=== PATIENT | male | born 1970 | race Caucasian/White ===

== ENCOUNTER → 2017-10-02 10:56 | Outpatient (REF) | payer BC, SELFPAY ==
[2017-10-02 13:50] LABS: Basophils # 0.1 K/mm3 (0-0.2); Basophils % 0.9 % (0.1-2.0); Eosinophils # 0.2 K/mm3 (0.0-0.4); Eosinophils % 2.3 % (0.1-12.0); Hematocrit 53.4 % (42.0-52.0); Hemoglobin 17.3 g/dL (14.1-18.0); Lymphocytes # 3.5 K/mm3 (0.7-4.5); Lymphocytes % 54.5 K/mm3 (10-50); Mean Corpuscular HGB Conc 32.3 g/dL (31.8-35.4); Mean Corpuscular Hemoglobin 29.8 pg (27.0-31.2); Mean Corpuscular Volume 92.3 fl (80-94); Mean Platelet Volume 7.3 fl (7.4-10.4); Monocytes # 0.4 K/mm3 (0.1-1.0); Monocytes % 6.9 % (1.7-9.3); Neutrophils # 2.3 K/mm3 (1.8-7.8); Neutrophils % 35.3 % (37.0-80.0); Platelet Count 252 K/mm3 (142-424); Red Blood Count 5.79 M/mm3 (4.60-6.20); Red Cell Distribution Width 12.4 % (11.5-17.5); White Blood Count 6.4 K/mm3 (4.8-10.8)
[2017-10-02 13:59] LABS: MANUAL DIFFERENTIAL MANUAL DIFFERENTIAL (MANUAL DIFF)
[2017-10-02 16:34] LABS: Alanine Aminotransferase 40 U/L (12-78); Albumin Level 4.3 gm/dL (3.4-5.0); Albumin/Globulin Ratio 1.5 (1.1-1.8); Alkaline Phosphatase 82 U/L (46-116); Anion Gap 13.1 mEq/L (5-15); Aspartate Amino Transferase 23 U/L (15-37); Bilirubin,Total 0.6 mg/dL (0.2-1.0); Blood Urea Nitrogen 12 mg/dL (7-18); Calcium 9.3 mg/dL (8.5-10.1); Carbon Dioxide 28 mmol/L (21.0-32.0); Chloride 105 mmol/L (98-107); Chol/HDL Ratio 3.7 (1-3.5); Cholesterol 173 mg/dL (140-200); Creatinine,Serum 0.99 mg/dL (0.70-1.30); Estimated Glomerular Filt Rate 82 ml/min (>60); GFR (African American) 99 ML/MIN (>60); Globulin 2.9 gm/dl (1.3-3.2); Glucose 113 mg/dL (74-106); HDL Cholesterol 47 mg/dL (27-67); LDL Cholesterol 108 mg/dL (0-130); Potassium 5.1 mmoL/L (3.5-5.1); Sodium 141 mmol/L (136-145); T4 (Thyroxine) 8.4 ug/dl (4.7-13.3); Thyroid Stimulating Hormone 1.62 uIU/ml (0.358-3.740); Total Protein,Serum 7.2 gm/dL (6.4-8.2); Triglycerides 92 mg/dL (30-200); VLDL Cholesterol 18 mg/dL (0-40)
[2017-10-02 19:09] LABS: Eosinophils % 3 % (0-3); Lymphocytes % 54 % (10-50); Monocytes % 10 % (2-9); Neutrophils % 32 % (42-76); Platelet Estimate Normal; RBC Morphology Normal; Total Cells Counted 100
[2017-10-04 06:18] LABS: HIV Screen 4th Generation wRfx Non Reactive (Non Reactive); Vitamin D 25 Hydroxy 23.3 ng/mL (30.0-100.0)
== END ==
LOC: LAB 10:56
PROVIDERS: Visit Provider Physician Assistant
DX: I10 Essential (primary) hypertension (principal); E78.5 Hyperlipidemia, unspecified; F32.1 Major depressive disorder, single episode, moderate
CPT/HCPCS: 80053; 80061; 82652; 84436; 84443; 85007; 85025; 86703; G0432

== ENCOUNTER → 2017-11-20 09:06 | Outpatient (CLI) | payer BC, SELFPAY ==
--- NOTE | 2017-11-20 09:08 | XR_ITS ---
XR foot wt bearing RT 3V HISTORY: ITS.REASON: pain ORDERING PHYSICIAN: Tiny Thomas DPM PATIENT AGE: 47 years COMPARISON: FINDINGS: No fracture or dislocation. There is normal alignment. There is a small cortical defect along the dorsal distal aspect of the first metatarsal with some associated soft tissue swelling minimal soft tissue indication. Gout is a consideration. Please correlate clinically. No other significant anomalies are evident. IMPRESSION: 1. Possible gout. Please correlate with clinical parameters 2. Otherwise negative
--- NOTE | 2017-11-20 09:08 | XR_ITS ---
XR foot wt bearing LT 3V HISTORY: ITS.REASON: pain ORDERING PHYSICIAN: Tiny Thomas DPM PATIENT AGE: 47 years COMPARISON: None FINDINGS: No fracture or dislocation. No lytic or blastic change. There is normal mineralization.. The joint spaces are well-preserved. No significant degenerative/arthritic changes. No erosive changes evident. A faint calcific density is present along the dorsal aspect of the interphalangeal joint of the great toe nonspecific IMPRESSION: Negative, no acute finding
== END ==
PROVIDERS: Visit Provider Podiatrist
DX: M79.671 Pain in right foot (principal); M79.672 Pain in left foot
CPT/HCPCS: 73630

== ENCOUNTER → 2017-12-11 08:19 | Outpatient (CLI) | payer BC, SELFPAY ==
--- NOTE | 2017-12-11 08:19 | MR_ITS ---
MR foot RT wo/w con Ordering Physician: Tiny Bliss DPM Patient Age: 47 years: Male HISTORY: ITS.REASON:. Focal Swelling cyst foot pain and neuropathy Patient states ganglion cyst lateral side great toe right foot. Marker placed over this area. Reason HPI Comments - Dr bliss 47 y/o male who presents for initial evaluation of right foot pain. Patient has had 2 previous surgeries on the right foot, both for cyst removal . First surgery was by Dr. Nadeem Rao 04/2014 and then Pelon Rao 03/02/15. The 2nd surgery was for a medial dorsal cutaneous nerve release and soft tissue mass excision. Soft tissue mass with a ganglion cyst clinically. Patient states that a few months ago he started having drainage from the right medial great toe. He describes the drainage as clear jelly . Patient complains of numbness at rest. When he is weightbearing he states that the big toe throbs, tingles and camara. The burning pain is localized to the big toe joint but does radiate up the inside of the foot to the haynes the ankle. Patient took Gabapentin in the past, but it did not make any difference. He denies any treatment since surgery with Dr. Pelon Rao. 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 Multiplanar multisequence MR imaging 1.5 Wilma MR . Pre-& postcontrast imaging Postcontrast T1 images performed following 20 mL ProHance COMPARISON :Plain films of foot 7 02/17 and 05/15/2014 FINDINGS ... Skin marker is placed over the palpable area at the medial dorsal aspect first MTP joint,/ base of great toe Just beneath this marker there is a tiny 4 mm x 5 mm length focal fluid-filled likely cystic area on fluid weighted images... With Suggestion of perhaps scant, very minor enhancement of soft tissues overlying & surrounding this small fluid collection. For example axial postcontrast image 13, demonstrates what appears to be very subtle enhancing minimal focal bulging soft tissues in this region, surrounding this tiny cyst. Overall area measures ~1 cm at its base. Clinical correlation required. This feature appears well from the joint.. This is minor focal soft tissue prominence is nicely seen seen the sagittal slice 26 images ... Mild Arthritic Changes First MTP joint: Under also some minor subchondral cystic changes seen at the head of first metatarsal, axial slice 16 sagittal 22. These of the compatible some mild degenerative changes at the first MTP joint. Mild sharp. The margin of the joint may also reflects a. Continuing distally at the great toe there is some upper normal fluid dorsal to head and neck of proximal phalanx. Overlying the bony & just beneath the extensor tendon Upper normal precontrast signal in the soft tissues beneath/ lateral to the adductor hallucis tendon,... & medial to the first metatarsal. There is no enhancement here number thus this most likely reflects venous structures.. Considered Possibility of a small Elongated developing ganglia here in the this tendon, briefly entertain on coronal STIR image, but less likely. Clinical correlation required here as well. Other metatarsals appear intact. . The second toe there is upper normal fluid just inferior to the head of the proximal phalanx.. Upper normal distance between the first and second toe however first and second metatarsals with normal relationships -------IMPRESSION: 1. small Subtle Focal Soft Tissue Prominence-overlying the medial dorsal aspect first MTP. This correlates with the palpable area just beneath the skin marker . This appears to involve the superficial soft tissues along with a small 4 x 5 mm
--- NOTE | 2017-12-11 10:19 | HMH.ITSHM ---
LISINOPRIL METOPROL 10MG LIPTIOR 20MG CELEXA 20mg LAMICTAL 100mg MELOXICAN 7.5 ASPIRIN 81MG
== END ==
PROVIDERS: Family Provider Physician Assistant; PCP Physician Assistant; Visit Provider Podiatrist
DX: M67.471 Ganglion, right ankle and foot (principal)
CPT/HCPCS: 73720; A9576

== ENCOUNTER → 2018-05-07 16:21 | Outpatient (CLI) | payer BC, SELFPAY ==
[2018-05-07 16:41] LABS: Basophils # 0.1 K/mm3 (0-0.2); Basophils % 1.2 % (0.1-2.0); Eosinophils # 0.2 K/mm3 (0.0-0.4); Eosinophils % 2.6 % (0.1-12.0); Hematocrit 50.5 % (42.0-52.0); Hemoglobin 15.7 g/dL (14.1-18.0); Lymphocytes # 2.7 K/mm3 (0.7-4.5); Lymphocytes % 45.1 % (10-50); Mean Corpuscular Hemoglobin 28.3 pg (27.0-31.2); Mean Corpuscular Volume 91.3 fl (80-94); Mean Platelet Volume 7.6 fl (7.4-10.4); Monocytes # 0.6 K/mm3 (0.1-1.0); Monocytes % 10.1 % (1.7-9.3); Neutrophils # 2.4 K/mm3 (1.8-7.8); Platelet Count 260 K/mm3 (142-424); Red Blood Count 5.52 M/mm3 (4.60-6.20); Red Cell Distribution Width 13.7 % (11.5-17.5); White Blood Count 5.9 K/mm3 (4.8-10.8)
[2018-05-07 17:32] LABS: Hemoglobin A1C 5.7 % (0.0-7.0)
[2018-05-07 20:12] LABS: Alanine Aminotransferase 44 U/L (12-78); Albumin Level 3.9 gm/dL (3.4-5.0); Albumin/Globulin Ratio 1.2 (1.1-1.8); Alkaline Phosphatase 90 U/L (46-116); Anion Gap 17.8 mEq/L (5-15); Aspartate Amino Transferase 21 U/L (15-37); Bilirubin,Total 0.6 mg/dL (0.2-1.0); Blood Urea Nitrogen 8 mg/dL (7-18); Calcium 8.8 mg/dL (8.5-10.1); Carbon Dioxide 24 mmol/L (21.0-32.0); Chloride 103 mmol/L (98-107); Chol/HDL Ratio 3.6 (1-3.5); Cholesterol 182 mg/dL (140-200); Estimated Glomerular Filt Rate 91 ml/min (>60); GFR (African American) 110 ML/MIN (>60); Globulin 3.2 gm/dl (1.3-3.2); Glucose 101 mg/dL (74-106); HDL Cholesterol 50 mg/dL (27-67); LDL Cholesterol 116 mg/dL (0-130); Potassium 4.8 mmoL/L (3.5-5.1); Sodium 140 mmol/L (136-145); T4 (Thyroxine) 10.3 ug/dl (4.7-13.3); Thyroid Stimulating Hormone 0.97 uIU/ml (0.358-3.740); Total Protein,Serum 7.1 gm/dL (6.4-8.2); Triglycerides 79 mg/dL (30-200); VLDL Cholesterol 16 mg/dL (0-40)
[2018-05-09 12:20] LABS: Hep A Ab, IgM Negative (Negative); Hepatitis B Core Antibody IgM Negative (Negative); Hepatitis B Surface Antigen Negative (Negative)
[2018-05-09 14:20] LABS: Vitamin B12 772 pg/mL (232-1245); Vitamin D 25 Hydroxy 23.9 ng/mL (30.0-100.0)
[2018-05-09 14:21] LABS: Folate 5.4 ng/mL (>3.0); HIV Screen 4th Generation wRfx Non Reactive (Non Reactive); Hepatitis C Antibody 0.1 s/co ratio (0.0-0.9)
== END ==
PROVIDERS: Visit Provider Physician Assistant
DX: G62.9 Polyneuropathy, unspecified (principal); I10 Essential (primary) hypertension; Z20.2 Contact with and (suspected) exposure to infections with a predominantly sexual mode of transmission
CPT/HCPCS: 80053; 80061; 80074; 82607; 82652; 82746; 83036; 84436; 84443; 85025; 86703; G0432

== ENCOUNTER → 2018-11-28 13:23 | Outpatient (CLI) | payer BC, SELFPAY ==
[2018-11-28 13:59] LABS: Basophils # 0.1 K/mm3 (0-0.2); Basophils % 1.1 % (0.1-2.0); Eosinophils # 0.1 K/mm3 (0.0-0.4); Eosinophils % 2.4 % (0.1-12.0); Hematocrit 53.9 % (42.0-52.0); Hemoglobin 16.8 g/dL (14.1-18.0); Lymphocytes # 2.9 K/mm3 (0.7-4.5); Lymphocytes % 48.3 % (10-50); Mean Corpuscular HGB Conc 31.2 g/dL (31.8-35.4); Mean Corpuscular Hemoglobin 28.6 pg (27.0-31.2); Mean Corpuscular Volume 91.6 fl (80-94); Mean Platelet Volume 7.8 fl (7.4-10.4); Monocytes # 0.6 K/mm3 (0.1-1.0); Monocytes % 9.9 % (1.7-9.3); Neutrophils # 2.3 K/mm3 (1.8-7.8); Neutrophils % 38.2 % (37.0-80.0); Platelet Count 282 K/mm3 (142-424); Red Blood Count 5.88 M/mm3 (4.60-6.20); Red Cell Distribution Width 13.3 % (11.5-17.5); White Blood Count 6.1 K/mm3 (4.8-10.8)
[2018-11-28 14:46] LABS: Alanine Aminotransferase 50 U/L (12-78); Albumin Level 3.8 gm/dL (3.4-5.0); Albumin/Globulin Ratio 1.2 (1.1-1.8); Alkaline Phosphatase 88 U/L (46-116); Anion Gap 18.6 mEq/L (5-15); Aspartate Amino Transferase 24 U/L (15-37); Bilirubin,Total 0.6 mg/dL (0.2-1.0); Blood Urea Nitrogen 12 mg/dL (7-18); Calcium 8.7 mg/dL (8.5-10.1); Carbon Dioxide 23 mmol/L (21.0-32.0); Chloride 102 mmol/L (98-107); Chol/HDL Ratio 4.1 (1-3.5); Cholesterol 154 mg/dL (140-200); Estimated Glomerular Filt Rate 91 ml/min (>60); GFR (African American) 110 ML/MIN (>60); Globulin 3.1 gm/dl (1.3-3.2); Glucose 101 mg/dL (74-106); HDL Cholesterol 38 mg/dL (27-67); LDL Cholesterol 96 mg/dL (0-130); Potassium 4.6 mmoL/L (3.5-5.1); Sodium 139 mmol/L (136-145); Thyroid Stimulating Hormone 1.41 uIU/ml (0.358-3.740); Total Protein,Serum 6.9 gm/dL (6.4-8.2); Triglycerides 99 mg/dL (30-200); VLDL Cholesterol 20 mg/dL (0-40)
[2018-11-29 10:13] LABS: Hep A Ab, IgM Negative (Negative); Hepatitis B Core Antibody IgM Negative (Negative); Hepatitis B Surface Antigen Negative (Negative)
[2018-11-29 19:16] LABS: HIV Screen 4th Generation wRfx Non Reactive (Non Reactive); Hepatitis C Antibody <0.1 s/co ratio (0.0-0.9); PSA, Free 0.33 ng/mL; Prostate Specific Ag 0.9 ng/mL (0.0-4.0); Vitamin D 25 Hydroxy 25.8 ng/mL (30.0-100.0)
== END ==
PROVIDERS: Visit Provider Physician Assistant
DX: E78.5 Hyperlipidemia, unspecified (principal); I10 Essential (primary) hypertension; Z11.59 Encounter for screening for other viral diseases
CPT/HCPCS: 80053; 80061; 80074; 82652; 84153; 84154; 84436; 84443; 85025; 86703; G0432

== ENCOUNTER → 2020-06-24 10:50 | Outpatient (CLI) | payer BC, SELFPAY ==
[2020-06-25 10:14] LABS: Covid-19 Nasal PCR Sendout P&C Negative
== END ==
PROVIDERS: PCP Emergency Medicine; Visit Provider Physician Assistant
DX: Z20.822 Contact with and (suspected) exposure to COVID-19 (principal)
CPT/HCPCS: U0004

== ENCOUNTER → 2020-08-12 13:56 | Outpatient (CLI) | payer BC, SELFPAY ==
[2020-08-12 14:25] LABS: Basophils # 0.1 K/mm3 (0-0.2); Eosinophils # 0.3 K/mm3 (0.0-0.4); Eosinophils % 3.5 % (0.1-12.0); Hematocrit 51.5 % (42.0-52.0); Hemoglobin 16.8 g/dL (14.1-18.0); Lymphocytes # 3.8 K/mm3 (0.7-4.5); Mean Corpuscular HGB Conc 32.6 g/dL (31.8-35.4); Mean Corpuscular Hemoglobin 29.3 pg (27.0-31.2); Mean Corpuscular Volume 89.7 fl (80-94); Mean Platelet Volume 8.5 fl (7.4-10.4); Monocytes # 0.6 K/mm3 (0.1-1.0); Monocytes % 8.2 % (1.7-9.3); Neutrophils # 2.7 K/mm3 (1.8-7.8); Neutrophils % 36.4 % (37.0-80.0); Platelet Count 266 K/mm3 (142-424); Red Blood Count 5.74 M/mm3 (4.60-6.20); Red Cell Distribution Width 13.5 % (11.5-17.5); White Blood Count 7.4 K/mm3 (4.8-10.8)
[2020-08-12 14:28] LABS: MANUAL DIFFERENTIAL MANUAL DIFFERENTIAL (MANUAL DIFF)
[2020-08-12 14:35] LABS: Alanine Aminotransferase 31 U/L (12-78); Albumin Level 4.3 g/dl (3.5-5.0); Albumin/Globulin Ratio 1.4 (1.1-1.8); Alkaline Phosphatase 84 U/L (38-126); Anion Gap 13.6 mEq/L (5-15); Aspartate Amino Transferase 33 U/L (17-59); Bilirubin,Total 0.6 mg/dl (0.2-1.3); Blood Urea Nitrogen 12 mg/dl (9-20); Calcium 9.4 mg/dl (8.4-10.2); Carbon Dioxide 23 mmol/L (22.0-30.0); Chloride 107 mmol/L (98-107); Chol/HDL Ratio 4.7 (1-3.5); Cholesterol 175 mg/dl (140-200); Estimated Glomerular Filt Rate 104 ml/min (>60); GFR (African American) 125 ML/MIN (>60); Glucose 105 mg/dl (74-100); HDL Cholesterol 37 mg/dl (40-60); Potassium 4.6 mmoL/L (3.5-5.1); Sodium 139 mmol/L (136-145); Total Protein,Serum 7.3 g/dl (6.3-8.2); Triglycerides 122 mg/dl (30-150); VLDL Cholesterol 24 mg/dL (0-40)
[2020-08-12 14:47] LABS: Direct LDL Cholesterol 101.87 mg/dL (100-129)
[2020-08-12 14:51] LABS: Free T4 (Free Thyroxine) 1.01 ng/dl (0.78-2.19)
[2020-08-12 15:06] LABS: Thyroid Stimulating Hormone 1.62 uIU/mL (0.465-4.68)
[2020-08-12 15:51] LABS: Hemoglobin A1C 6.4 % (4.0-6.0)
[2020-08-12 17:23] LABS: Eosinophils % 6 % (0-3); Lymphocytes % 35 % (10-50); Monocytes % 3 % (2-9); Neutrophils % 37 % (42-76); Platelet Estimate Normal; RBC Morphology Normal; Total Cells Counted 100
[2020-08-14 10:36] LABS: Hep A Ab, IgM Negative (Negative); Hepatitis B Core Antibody IgM Negative (Negative); Hepatitis B Surface Antigen Negative (Negative)
[2020-08-14 10:43] LABS: HIV Screen 4th Generation wRfx Non Reactive (Non Reactive); Hepatitis C Antibody <0.1 s/co ratio (0.0-0.9)
[2020-08-14 15:31] LABS: Rapid Plasma Reagin Ab Titer Non Reactive (NonRea<1:1)
[2020-08-15 08:50] LABS: HSV 2 IgG Supplemental Testing Positive (Negative); HSV 2 IgG, Type Spec 3.37 index (0.00-0.90); Neisseria gonorrhoeae, NAA Negative (Negative)
== END ==
PROVIDERS: Visit Provider Physician Assistant
DX: Z00.00 Encounter for general adult medical examination without abnormal findings (principal); E78.5 Hyperlipidemia, unspecified; E55.9 Vitamin D deficiency, unspecified; Z20.2 Contact with and (suspected) exposure to infections with a predominantly sexual mode of transmission; R06.02 Shortness of breath; I10 Essential (primary) hypertension; Z79.899 Other long term (current) drug therapy; Z11.4 Encounter for screening for human immunodeficiency virus [HIV]
CPT/HCPCS: 80053; 80061; 80074; 83036; 84439; 84443; 85007; 85025; 86592; 86695; 86703; 86790; 87491; 87591; G0432

== ENCOUNTER → 2020-10-09 06:36 | Outpatient (CLI) | payer BC, SELFPAY ==
--- NOTE | 2020-10-09 | CA_ITS ---
APPROVED REPORT Exam: Exercise Treadmill Technologist: sophie miles, Ht: 5 ft 9 in Wt: 250 lbs BSA: 2.27 m2 HR: 65 bpm BP: 113/58 mmHg Indications: CP, SOB Medical History Medical History: CAD s/p CABG Medications: Amlodipine,,,,, Lisinopril,,,,, Metoprolol,,,,, Asa,,,,, Albuterol,,,,, DulOXETINE,,,,, Vitamin D,,,,, Flovent,,,,, ValACYCLOVIR,,,,, LipTOR,,,,, MeLOICAM,,,,, MeLOICAM,,,,, Allergies: oxycodone Cardiac Risk Factors: HTN, Hyperlipidemia, FHX of CAD Stress Test Details Test: Brayan HR Resting HR: 74 bpm Max Heart Rate (APMHR): [id number] bpm Max HR Achieved: 133 bpm Target HR (85% APMHR): 146.360915 bpm % of APMHR: 77.33 Recovery HR: 96 bpm BP Resting BP: 113.0/58.0 mmHg Max BP: 170.0/86.0 mmHg Recovery BP: 154.0/84.0 mmHg ECG Resting ECG: NSR Clinical Reason for Termination: Chest pain, Dyspnea Exercise duration: 06:30 min Highest Stage Achieved: Stage 2: 2.5 mph at 12% grade. Exercise capacity: 7.0 METs Stress ECG Conclusion Patient had mild chest along with SOA and wheezing. One PVC. Less than 1.5mm ST Segment changes. Non-diagnostic- Did not achieve target HR. Positive symptoms. Test Summary REST . . . . . . . Standing REST . . . . . . . Sitting REST 10:29 0.0 1.2 74 . 113/ 58 . . Stage 1 01:00 10.0 1.7 98 . . . . Stage 1 02:00 10.0 1.7 106 . . . . Stage 1 03:00 10.0 1.7 115 . 150/ 82 . . Stage 2 01:00 12.0 2.5 118 . . . . Stage 2 02:00 12.0 2.5 127 . . . . Stage 2 . . . . . . . Stage held Stage 2 03:00 12.0 2.5 131 . . . . Stage 2 . . . . . . . Stage resumed Stage 2 03:30 12.0 2.5 132 . 170/ 86 . Stop exercise at 06:30 RECOVERY 01:00 0.0 0.0 118 . . . . RECOVERY 02:00 0.0 0.0 105 . . . . RECOVERY 03:00 0.0 0.0 100 . . . . RECOVERY 04:00 0.0 0.0 96 . 158/ 84 . . RECOVERY 05:00 0.0 0.0 90 . 158/ 84 . . RECOVERY 06:00 0.0 0.0 96 . 142/ 80 . . RECOVERY 06:34 0.0 0.0 90 . 142/ 80 . . Electronically signed by : Lit Rutledge, 10/09/2020 13:37:46
--- NOTE | 2020-10-09 07:28 | NM_ITS ---
APPROVED REPORT Exam: Nuclear Stress Test Indication: chest pain..short of breath..palpitations..fatigue Patient Location: Outpatient Stress Tech: Adelina James DC Tech:Marina Roy ARRT RT(R)(N) Ht: 5 ft 9 in Wt: 250 lbs HR: 65 bpm BP: 113/58 mmHg BSA: 2.27 m2 BMI: 36.9 History: chest pain..short of breath..palpitations..fatigue Procedure: Patient exercised on Brayan protocol 6.30 minutes and sec, resting heart rate 65 bpm, resting blood pressure 113/58 mmHg, with exercise maximum heart rate achived was 133 bpm which is less than 85% of the maximum corrected heart rate. bpm which is 91 % of the maximum predicted heart rate and blood pressure was 170/86 mmHg. Test was stopped due to Chest pain and shortness of breath. Patient has Adequate exercise capacity, achieved 7.0 METs of workload on treadmill, the blood pressure response to exercise was Adequate. Electrocardiogram Resting electrocardiogram showed sinus rhythm, with exercise there is less than 1.[address] segment depression noted from the baseline EKG. Cardiac Stress and Resting SPECT Images: Cardiac Stress and Resting SPECT images were obtained using technetium 99m Myoview 30.1 mCi stress and 9.86 mCi at rest. Gated SPECT for analysis of segmental wall motion and calculation of the ejection fraction also done. Prone images were also obtained. Cardiac stress and resting SPECT images show uniform myocardial activity without segmental perfusion abnormality, computer derived ejection fraction is 49% with no regional wall motion abnormality, right ventricle is normal size and contractility. Conclusion: 1. The EKG portion of the exercise Myoview is nondiagnostic as patient did not achieve the target heart rate, patient has adequate exercise capacity achieved 7 mets of workload on treadmill, the blood pressure response to exercise was adequate, patient complained of shortness of breath and chest discomfort with exercise relieved with rest. 2. No scintigraphic evidence of reversible ischemia seen, computer derived ejection fraction 49% with no regional wall motion abnormality, right ventricle is normal size and contractility. Electronically signed by : Lit Rutledge, 10/09/2020 13:45:47
--- NOTE | 2020-10-09 07:31 | CA_ITS ---
APPROVED REPORT EXAM: Comprehensive 2D, Doppler, and color-flow Echocardiogram Rn Assessment: Ashley Hernandez CRT Ht: 5 ft 9 in Wt: 260lbs BSA: 2.31 BP: 142/73 mmHg Indications: Chest Pain, CAD, CABG, SOB, 2D Dimensions LVOT 1.81 cm (M/F) 1.5-2.5 LA Volume 81.00 mL LA Volume Index 35.10 mL/m2 (M/F) 16-34 M-Mode Dimensions RVDd 2.98 cm (0.9-2.6) LA Diam 4.14 cm (1.9-4.0) LVDd 4.71 cm (3.5-5.7) Ao Diam 3.13 cm (2.0-3.7) LVDs 3.34 cm (3.5-5.7) IVSd 1.45 cm (0.6-1.1) PWd 0.60 cm (0.6-1.1) EF (Teich) 55.90% FS 29.10% EDV (Teich) 102.90 mL TAPSE 1.51 (<1.7) ESV (Teich) 45.40 mL LV Diastology E Decel Time 250.00 (160-240 msec) E/A Ratio 1.24 MED E' 7.00 (< 7 cm/sec) MED A' 11.50 cm/s E'/MED E' Ratio 15.29 (>14) LAT E' 8.50 (<10 cm/sec) LAT A' 6.50 cm/s E/LAT E' Ratio 12.59 (>14) Aortic Valve AO Peak GR. 10.20 mmHg Mitral Valve MV A Velocity 86.00 (40-130 cm/s) E/A Ratio 1.24 MV Decel. Time 250.00 (160-240 ms) Pulmonary Valve PV Peak Velocity 91.00 (50-150 cm/s) Tricuspid Valve TR P. Velocity 271.00 cm/s Left Ventricle Left atrium is mildly enlarged, left ventricle is normal size, there is no concentric left ventricular hypertrophy, visually estimated ejection fraction 50% with no regional wall motion abnormality, diastolic parameters are inconclusive. Right Ventricle Right atrium and right ventricle are mildly enlarged with normal contractility. Aortic Valve Aortic valve is minimally thickened and fibrosed, there is no aortic stenosis or aortic insufficiency. Mitral Valve Mitral valve is grossly normal, there is trace mitral regurgitation. Tricuspid Valve Tricuspid grossly normal, there is trace tricuspid regurgitation, tricuspid regurgitation jet velocity is inadequate for calculation of the right ventricular systolic pressure. Pulmonic Valve Pulmonic valve is poorly visualized. Great Vessels Aortic root is normal size. Pericardium No significant pericardial effusion noted. Conclusion 1. Mild biatrial enlargement, normal left ventricular size, visually estimated ejection fraction 50% with no regional wall motion abnormality, diastolic parameters are inconclusive. 2. Mildly enlarged right ventricle with normal contractility. 3. Trace mitral and tricuspid regurgitation. 4. No significant pericardial effusion noted. Electronically signed by : Lit Rutledge, 10/09/2020 14:06:37
--- NOTE | 2020-10-09 11:11 | HMH.ITSHM ---
Current Home Medications as stated by this patient Carloz Tong or regional sales representative. [] metoprolol lisinopril amlodipine
== END ==
PROVIDERS: PCP Emergency Medicine; Visit Provider Internal Medicine Cardiovascular Disease
DX: R07.89 Other chest pain (principal); R06.00 Dyspnea, unspecified; I25.708 Atherosclerosis of coronary artery bypass graft(s), unspecified, with other forms of angina pectoris; E78.5 Hyperlipidemia, unspecified; I10 Essential (primary) hypertension; Z95.1 Presence of aortocoronary bypass graft
CPT/HCPCS: 78452; 93017; 93306; A9502

== ENCOUNTER 2020-10-13 01:25 | Observation (INO) | payer BC, SELFPAY ==
[2020-10-13] VITALS (20 sets, daily range): BP systolic 106–146; BP diastolic 57–83; PULSE 57–96; RESP 16–20; TEMP 36.4–37.1; O2SAT 92–98; BMI 36.9; BMI 38.2
--- NOTE | 2020-10-13 | IR_ITS ---
APPROVED REPORT Patient Location: Inpatient Sales And Marketing Executive: SETH Dean RT (R) PROCEDURES Left heart catheterization Left ventriculogram Selective coronary angiogram Selective engagement of left internal mammary artery Selective engagement of the saphenous vein graft to circumflex artery Selective engagement of the saphenous vein graft to the right coronary INDICATION Acute non-ST ovation myocardial infarction, Coronary artery disease, History of coronary bypass surgery, Informed consent was obtained prior to the procedure. COMPLICATIONS None Estimated Blood Loss: Less than 10 mls TECHNIQUE One percent lidocaine used to anesthetize the right groin. The right femoral artery was accessed via the Seldinger technique and a 5 [place] sheath was placed in the right femoral artery. A JL 4, JR4 catheter were used to perform left heart catheterization, left ventriculogram selective coronary angiography as well as selective engagement of the 2 vein grafts and the left internal mammary artery. At the end of the procedure the patient was transferred to the postop holding area in stable condition for sheath removal. ANGIOGRAPHIC RESULTS The left main artery Normal The left anterior descending artery Is proximally normal and then occluded in its mid segment distal to the second diagonal artery The circumflex artery Nondominant proximally occluded The right coronary artery Is a dominant vessel and subtotally occluded in its proximal to mid segment. There is scant antegrade flow from the yocha dehe vessel into the distal segment however the mid majority of the flow was coming from the saphenous vein graft The [place] ventriculogram reveals Estimated at 45% The left ventricular end-diastolic pressure 10 mmHg Left internal mammary artery is widely patent into the LAD. Right at the anastomosis a 60 to 70% concentric stenosis is present The saphenous vein graft to the circumflex artery is acutely thrombosed with extensive clot throughout its entire graft The saphenous vein graft to the right coronary artery is widely patent IMPRESSION Acute extensive thrombosis of the saphenous vein graft supplying a nondominant circumflex artery Coronary disease as described above Ejection fraction 45% Normal left ventricular end-diastolic pressure PLAN 1. Medical management 2. The entire graft is thrombosed therefore any attempt at revascularizing such as thrombectomy or stenting would be fraught with complications and potential stroke. Medical management is most warranted for this nondominant vessel 3. Aggressive risk factor modification 4. It is unlikely the anastomosis lesion is hemodynamically severe at the [place] site. Medical management is most warranted 5. The elevated troponin stems from the acute occlusion of the saphenous vein graft Electronically signed by : Jose Jacobson, 10/13/2020 15:05:31
--- NOTE | 2020-10-13 01:20 | ECG_ITS ---
APPROVED REPORT Exam: Resting ECG HR:66 bpm ECG Measurements Heart Rate 66 AXES [place] 156 P 53 QRSd 88 QRS 20 QT 400 T 57 QTc 419 Conclusion Normal sinus rhythm Possible Left atrial enlargement RSR' or QR pattern in V1 suggests right ventricular conduction delay Borderline ECG Electronically signed by : Zhen Nicholson, 10/14/2020 22:20:20
--- NOTE | 2020-10-13 01:30 | XR_ITS ---
PROCEDURE INFORMATION: Exam: XR Chest Exam date and time: 10/13/2020 1:30 AM Age: 50 years old Clinical indication: Type not specified; Prior surgery; Surgery date: 6+ months; Surgery type: Bypass; Patient HX: Chest pain this am; Additional info: Cp TECHNIQUE: Imaging protocol: XR of the chest. Views: 2 views. COMPARISON: No relevant prior studies available. FINDINGS: Platelike atelectasis in the lung basis without evidence of consolidation. No pleural effusion or pneumothorax. Mild cardiomegaly with mild central pulmonary vascular congestion. Evidence of mediastinal surgery with sternotomy wires and CABG. IMPRESSION: Chronic changes without evidence of an active lung parenchymal lesion.
--- NOTE | 2020-10-13 01:44 | HMH.EDCP ---
ED Disposition Clinical Impression: Unstable angina pectoris, Hx of CABG, Obesity (BMI 30-39.9) Disposition: Admitted as Observation Condition on Discharge: Good Referrals: Provider,Referral, [Referring] - - Critical Care Critical Care Time: No Attestation: On 10/13/20, the high probability of a clinically significant, sudden or life threatening deterioration of the following system(s) required my full and direct attention, intervention and personal management. The time I documented below is in addition to time spent performing reported procedures but includes the following listed in this critical care notation. Medical Decision Making - Medical Records Medical records reviewed: Yes: I reviewed the patient's medical records. - Lino Inquiry Pt receiving controlled substance: No Vital Signs: 10/13/20 01:24 10/13/20 02:37 Temperature 97.8 F Temperature Source Oral Pulse Rate 65 Pulse Rate [Right] 67 Respiratory Rate 16 16 Blood Pressure 117/58 L Blood Pressure [Right Arm] 112/72 Blood Pressure Mean 77 Blood Pressure Mean [Right Arm] 85 02 Sat by Pulse Oximetry 97 97 - Lab Data Lab results reviewed: Yes: I reviewed the patient's lab results. Lab Results 10/13/20 01:35: WBC 7.9, RBC 5.31, Hgb 15.4, Hct 46.5, MCV 87.5, MCH 29.1, MCHC 33.2, RDW 13.7, Plt Count 257, MPV 6.8 L, Neut % (Auto) 52.7, Lymph % (Auto) 36.6, [place] % (Auto) 6.3, Eos % (Auto) 3.4, Baso % (Auto) 1.0, Neut # (Auto) 4.2, Lymph # (Auto) 2.9, [place] # (Auto) 0.5, Eos # (Auto) 0.3, Baso # (Auto) 0.1 10/13/20 01:35: Sodium 139, Potassium 4.0, Chloride 107, Carbon Dioxide 25, Anion Gap 11.0, BUN 13, Creatinine 0.90, Estimated Creat Clear 161, Estimated GFR 90, Est GFR ( Amer) 109, Glucose 188 H, Calcium 9.3, Total Bilirubin 0.4, Direct Bilirubin 0.3, Conjugated Bilirubin 0.0, Indirect Bilirubin 0.1, Unconjugated Bilirubin 0.1, AST 29, ALT 34, Alkaline Phosphatase 85, Troponin I < 0.01, C-Reactive Protein 5.3 H, Total Protein 6.9, Albumin 4.3, Procalcitonin 0.058 Result diagrams: 10/13/20 01:35 10/13/20 01:35 Orders (Tests/Meds): ED MEDICATIONS Generic Name Dose Route Start Last Admin Trade Name Freq PRN Reason Stop Dose Admin Sodium Chloride 1,000 mls @ 999 mls/hr 10/13/20 01:45 10/13/20 01:33 Sod Chlor 0.9% 1000ml Bag IV 10/13/20 02:45 999 mls/hr .Q1H1M JAMIL Administration Sodium Chloride 8 ml 10/13/20 01:50 Sodium Chloride 0.9% 10ml Vial IV 11/12/20 01:49 NEEDED PRN dilute pepcid Discontinued Medications Generic Name Dose Route Start Last Admin Trade Name Freq PRN Reason Stop Dose Admin Famotidine 20 mg 10/13/20 01:50 10/13/20 01:50 Famotidine 20mg/2ml Vial IV 10/13/20 01:51 20 mg ONCE ONE Administration Metoclopramide HCl 10 mg 10/13/20 01:50 10/13/20 01:50 Metoclopramide Hcl 10mg/2ml Vial IVP 10/13/20 01:51 10 mg ONCE ONE Administration Nitroglycerin 1 gm 10/13/20 01:31 10/13/20 01:33 Nitroglycerin 1 Gm Ointment TD 10/13/20 01:32 1 gm ONCE ONE Administration ORDERS Category Date Time Status Complete Blood Count Auto Diff Stat Lab 10/13/20 01:35 Results Erythrocyte Sedimentation Rate Stat Lab 10/13/20 01:35 Results Full Resp Panel w/COVID ([facility]) Routine Lab 10/13/20 01:50 Received Troponin I Q3H Lab 10/13/20 04:30 Ordered Troponin I Q3H Lab 10/13/20 07:30 Ordered UA [Urinalysis and Microscopic] Stat Lab 10/13/20 02:34 Received - Radiology Data #1 Image(s): Chest Image Reviewed: Yes I reviewed the patient's radiology image Preliminary Findings: Normal/NAD - ECG Data Tracing #1 Normal Sinus Rhythm: Yes Ischemic changes: non-specific ST-T wave changes Medical Decision Narrative: pt with angina and will be admitted for eval Chest Pain HPI - General Chief Complaint: Chest Pain Stated Complaint: cp Time Seen by Provider: 10/13/20 01:40 Mode of Arrival: EMS Source of Information: Patient, EMS, Medical
[2020-10-13 01:45] LABS: Basophils # 0.1 K/mm3 (0-0.2); Eosinophils # 0.3 K/mm3 (0.0-0.4); Eosinophils % 3.4 % (0.1-12.0); Hematocrit 46.5 % (42.0-52.0); Hemoglobin 15.4 g/dL (14.1-18.0); Lymphocytes # 2.9 K/mm3 (0.7-4.5); Lymphocytes % 36.6 % (10-50); Mean Corpuscular HGB Conc 33.2 g/dL (31.8-35.4); Mean Corpuscular Hemoglobin 29.1 pg (27.0-31.2); Mean Corpuscular Volume 87.5 fl (80-94); Mean Platelet Volume 6.8 fl (7.4-10.4); Monocytes # 0.5 K/mm3 (0.1-1.0); Monocytes % 6.3 % (1.7-9.3); Neutrophils # 4.2 K/mm3 (1.8-7.8); Neutrophils % 52.7 % (37.0-80.0); Platelet Count 257 K/mm3 (142-424); Red Blood Count 5.31 M/mm3 (4.60-6.20); Red Cell Distribution Width 13.7 % (11.5-17.5); White Blood Count 7.9 K/mm3 (4.8-10.8)
[2020-10-13 01:50] LABS: Alanine Aminotransferase 34 U/L (12-78); Albumin Level 4.3 g/dl (3.5-5.0); Alkaline Phosphatase 85 U/L (38-126); Aspartate Amino Transferase 29 U/L (17-59); Bilirubin,Direct 0.3 mg/dl (0.0-0.4); Bilirubin,Indirect 0.1 mg/dL (0.0-0.9); Bilirubin,Total 0.4 mg/dl (0.2-1.3); Bilirubin,Unconjugated 0.1 mg/dL (0.0-1.1); Blood Urea Nitrogen 13 mg/dl (9-20); Calcium 9.3 mg/dl (8.4-10.2); Carbon Dioxide 25 mmol/L (22.0-30.0); Chloride 107 mmol/L (98-107); Creatinine Clearance Estimated 161 mL/min (50-200); Estimated Glomerular Filt Rate 90 ml/min (>60); GFR (African American) 109 ML/MIN (>60); Glucose 188 mg/dl (74-100); Sodium 139 mmol/L (136-145); Total Protein,Serum 6.9 g/dl (6.3-8.2)
[2020-10-13 01:54] LABS: Adenovirus,PCR Not Detected (NotDetected); Bordetella Pertussis Not Detected (NotDetected); Chlamydophila Pneumoniae, PCR Not Detected (NotDetected); Coronavirus 19, PCR Not Detected (NotDetected); Coronavirus 229E Not Detected (NotDetected); Coronavirus NL63 Not Detected (NotDetected); Coronavirus OC43 Not Detected (NotDetected); Coronovirus HKU1,PCR Not Detected (NotDetected); Human Metapneumovirus Not Detected (NotDetected); Influenza A, PCR Not Detected (NotDetected); Influenza AH1, 2009 Not Detected (NotDetected); Influenza AH1, PCR Not Detected (NotDetected); Influenza AH3,PCR Not Detected (NotDetected); Influenza B, PCR Not Detected (NotDetected); Mycoplasma Pneumoniae, PCR Not Detected (NotDetected); Parainfluenza 1, PCR Not Detected (NotDetected); Parainfluenza 2, PCR Not Detected (NotDetected); Parainfluenza 3, PCR Not Detected (NotDetected); Parainfluenza 4, PCR Not Detected (NotDetected); Respiratory Syncytial Virus Not Detected (NotDetected)
[2020-10-13 01:56] LABS: C-Reactive Protein 5.3 mg/L (0-4)
[2020-10-13 02:09] LABS: Procalcitonin 0.058 ng/mL (0.0-2.0); Troponin I < 0.01 ng/ml (0.00-0.034)
[2020-10-13 02:54] LABS: Microscopic, Urine URINE MICROSCOPIC (MICROSCOPIC)
[2020-10-13 03:04] LABS: Appearance,Urine CLEAR (Clear); Bilirubin,Urine Negative (Negative); Blood, Urine Negative (Negative); Color,Urine YELLOW (Yellow); Glucose,Urine (UA) Negative (Negative); Ketones,Urine Negative (Negative); Leukocyte Esterase,Urine Negative (Negative); Nitrate,Urine Negative (Negative); Protein,Urine Negative (Negative); Specific Gravity, Urine >= 1.030 (1.005-1.030)
[2020-10-13 03:15] LABS: Erythrocyte Sedimentation Rate 8 mm/hr (0-15)
[2020-10-13 03:20] LABS: Bacteria,Urine Trace /lpf; Mucus,Urine 1+ /lpf
[2020-10-13 03:29] LABS: Chol/HDL Ratio 4.6 (1-3.5); Cholesterol 175 mg/dl (140-200); HDL Cholesterol 38 mg/dl (40-60); Triglycerides 203 mg/dl (30-150); VLDL Cholesterol 41 mg/dL (0-40)
[2020-10-13 03:41] LABS: Direct LDL Cholesterol 87.49 mg/dL (100-129)
[2020-10-13 03:42] LABS: Hemoglobin A1C 6.5 % (4.0-6.0)
[2020-10-13 04:20] LABS: Rhinovirus/Enterovirus Detected (NotDetected)
[2020-10-13 04:36] LABS: Troponin I 0.03 ng/ml (0.00-0.034)
--- NOTE | 2020-10-13 04:38 | PC.NURSE ---
patient up to floor via wheelchair @ 04:37am.
--- NOTE | 2020-10-13 07:24 | HMH.PHAVTE ---
[facility] Pharmacy VTE Monitoring - Patient Demographics Admission date: 10/13/20 Report Date: 10/13/20 Time: 07:24 Allergies/Adverse Reactions: Patient Allergies oxycodone [From Percocet] Adverse Reaction (Mild, Verified 10/01/20 13:30) Height: 1.75 m Weight: 117.027 kg Patient Problems: Current Active Problems Unstable angina pectoris (Acute) Obesity (BMI 30-39.9) (Acute) Hx of CABG (Chronic) - VTE Risk Labs: VTE Related Lab Results Hgb 15.4 g/dL (14.1-18.0) 10/13/20 01:35 Hct 46.5 % (42.0-52.0) 10/13/20 01:35 Plt Count 257 K/mm3 (142-424) 10/13/20 01:35 BUN 13 mg/dl (9-20) 10/13/20 01:35 Creatinine 0.90 mg/dl (0.66-1.25) 10/13/20 01:35 Estimated Creat Clear 161 mL/min (50-200) 10/13/20 01:35 Was VTE Risk Assessment Performed: Yes VTE Score: 2 VTE Risk Level: Very Low Risk - Prophylaxis VTE Prophylaxis Ordered?: Yes Types of VTE Prophylaxis: TEDS Knee High Location of Applied Device: Bilateral Lower Extremeties
[2020-10-13 07:43] LABS: Troponin I 0.09 ng/ml (0.00-0.034)
--- NOTE | 2020-10-13 07:59 | HMH.CNCARD ---
History of Present Illness Consult date: 10/13/20 Requesting physician: Alan Hutson Consult reason: chest pain Chief complaint: chest pain Additional Medical History:: 1. Coronary artery disease A. MS with KENNETH in 2008 B. Three-vessel coronary bypass grafting, 2009, [facility] 2. Hypertension 3. Hyperlipidemia 4. Genital herpes 5. History of anxiety/depression 6. History of asthma 7. Ex-smoker History of present illness: 50-year-old white male with history of coronary artery bypass grafting at age 39 presented to the emergency department for 3-day history of substernal chest pain worse with both breathing and movement. No nausea, vomiting or diarrhea. He relates the symptoms to being the same as prior to his bypass surgery in 2009. Patient was started on nitroglycerin paste through the ER with mild improvement in symptoms. Overnight troponins have trended upwards to a peak of 0.09 this morning. EKG sinus rhythm with RSR prime noted but no acute ST segment changes. [facility] History Medical History: Reports:: Anxiety, Asthma, Coronary Artery Disease, Depression, Hyperlipidemia, Hypertension, Myocardial Infarction Denies:: Diabetes Mellitus Type 1, Diabetes Mellitus Type 2 *Have you ever received a pneumonia vaccine?: Yes *Have you received a flu vaccine this season?: Yes Other Medical History: Reports: Arthritis Other Surgeries: Yes: No Previous Surgery, CABG, Cardiac Surgery, Other Amputation: No Fractures: No - *Social History Last grade of school completed: Advanced degree Smoking Status: Former smoker Tobacco Type: cigarettes # Packs/Day (cigarettes): 1 Alcohol Intake: never Alcohol Intake Frequency:: holidays/special occasions only Substance Use Type: denies use *Occupational Status:: employed Housing: house Household Members: family *Travel in the last 8 weeks: None - Psychiatric History Pschychiatric History:: Reports:: Anxiety, Depression Family Hx:: Asthma, Coronary Artery Disease, Diabetes, Heart Attack, Hypertension, Stroke, Substance abuse, Alcoholism, Mental illness Meds Home Medications Medication Instructions Recorded Confirmed Type aspirin 81 mg tablet,delayed 81 mg PO HS tab 09/01/20 10/13/20 History release duloxetine 60 mg capsule,delayed 60 mg PO DAILY cap 09/01/20 10/13/20 History release ergocalciferol (vitamin D2) 1,250 1,250 mcg PO WEEKLY cap 09/01/20 10/13/20 History mcg (50,000 unit) capsule cholecalciferol (vitamin D3) 25 25 mcg PO DAILY tab 10/01/20 10/13/20 History mcg (1,000 unit) tablet Albuterol Sulfate [Proventil Hfa] 2 puff INHALATION Q6HP PRN 10/13/20 10/13/20 History Amlodipine Besylate [Amlodipine 10 mg PO DAILY 10/13/20 10/13/20 History 10mg Tab] Atorvastatin Calcium [Lipitor 40mg 40 mg PO HS 10/13/20 10/13/20 History Tab] Fluticasone Propionate [Flovent 1 puff INHALATION BID 10/13/20 10/13/20 History HFA] Meloxicam 15 mg PO DAILYP PRN 10/13/20 10/13/20 History Metoprolol Succinate [Metoprolol 25 mg PO BID 10/13/20 10/13/20 History Succinate 50mg Tablet*] Valacyclovir HCl [Valacyclovir] 500 mg PO DAILY 10/13/20 10/13/20 History lisinopriL [Lisinopril] 20 mg PO BID 10/13/20 10/13/20 History Allergies Allergy/AdvReac Type Severity Reaction Status Date / Time oxycodone [From Percocet] AdvReac Mild Verified 10/01/20 13:30 Exam Vital signs and Labs for Last 24 Hours: Temp Pulse Resp BP Pulse Ox 98.2 F 76 18 128/74 97 10/13/20 07:34 10/13/20 07:34 10/13/20 07:34 10/13/20 07:34 10/13/20 07:34 Laboratory Results - last 24 hr 10/13/20 01:35: WBC 7.9, RBC 5.31, Hgb 15.4, Hct 46.5, MCV 87.5, MCH 29.1, MCHC 33.2, RDW 13.7, Plt Count 257, MPV 6.8 L, Neut % (Auto) 52.7, Lymph % (Auto) 36.6, Kidder % (Auto) 6.3, Eos % (Auto) 3.4, Baso % (Auto) 1.0, Neut # (Auto) 4.2, Lymph # (Auto) 2.9, Kidder # (Auto) 0.5, Eos # (Auto) 0.3, Baso # (Auto) 0.1, ESR 8 10/13/20 01:35: Sodium 139, Potassium 4.0, Chloride
--- NOTE | 2020-10-13 12:15 | PC.NURSE ---
PT IS RESTING IN BED. NO COMPLAINTS OF CHEST PAIN OR SOA T/O THE SHIFT. ALERT AND ORIENTED X4. PT IS NPO AT THIS TIME DUE TO WAITING ON HEART CATH TO BE DONE. LUNG SOUNDS CLEAR. ABDOMEN SOFT/NON TENDER WITH ACTIVE BOWEL SOUNDS. NSR ON TELEMETRY. VSS. WILL CONTINUE TO MONITOR.
--- NOTE | 2020-10-13 19:58 | HMH.HP ---
*Admission Date: 10/13/20 *Chief complaint: chest pain *History of present illness: 50-year-old male with history of coronary artery bypass grafting in 2009 presented to the emergency department for 3-day history of substernal chest pain, pain worse yesterday. No nausea, vomiting or diarrhea. Pt states the symptoms felt the same as prior to his bypass surgery. Tropoinin elevated, pain was relieved with nitro. Pt admitted for cardiac work up and eval of chest pain. [facility] History I have reviewed the patient's past medical history: Yes Medical History: Reports:: Anxiety, Asthma, Coronary Artery Disease, Depression, Hyperlipidemia, Hypertension, Myocardial Infarction Denies:: Diabetes Mellitus Type 1, Diabetes Mellitus Type 2 *Have you ever received a pneumonia vaccine?: Yes *Have you received a flu vaccine this season?: Yes Other Medical History: Reports: Arthritis Other Surgeries: Yes: No Previous Surgery, CABG, Cardiac Surgery, Other Amputation: No Fractures: No - *Social History Last grade of school completed: Advanced degree Smoking Status: Former smoker Tobacco Type: cigarettes # Packs/Day (cigarettes): 1 Alcohol Intake: never Alcohol Intake Frequency:: holidays/special occasions only Substance Use Type: denies use *Occupational Status:: employed Housing: house Household Members: family *Travel in the last 8 weeks: None - Psychiatric History Pschychiatric History:: Reports:: Anxiety, Depression Family Hx:: Asthma, Coronary Artery Disease, Diabetes, Heart Attack, Hypertension, Stroke, Substance abuse, Alcoholism, Mental illness Review of Systems - Review of Systems Review of systems:: pertinent systems reviewed and negative unless documented below - Constitutional Denies body ache(s), Denies fatigue, Denies lack of energy - Eyes Denies change in vision - ENT Denies bleeding gums, Denies neck pain - *Cardiovascular Reports chest pain, Reports chest pain at rest, Reports chest pain with activity - *Respiratory Reports shortness of breath with activity, Reports pain on inspiration - *Gastrointestinal Denies abdominal pain, Denies nausea - *Genitourinary Denies urinary frequency - *Musculoskeletal Denies joint pain - Integumentary/Breasts Denies rash - *Neurologic Denies unsteadiness, Denies seizure-like activity - Psychiatric Denies lack of enjoyment - Endocrine Denies flushing - Hematologic/Lymphatic Denies enlarged lymph nodes - Allergic/Immunologic Denies itchy eyes Meds Home Medications Medication Instructions Recorded Confirmed Type aspirin 81 mg tablet,delayed 81 mg PO HS tab 09/01/20 10/13/20 History release duloxetine 60 mg capsule,delayed 60 mg PO DAILY cap 09/01/20 10/13/20 History release ergocalciferol (vitamin D2) 1,250 1,250 mcg PO WEEKLY cap 09/01/20 10/13/20 History mcg (50,000 unit) capsule cholecalciferol (vitamin D3) 25 25 mcg PO DAILY tab 10/01/20 10/13/20 History mcg (1,000 unit) tablet Albuterol Sulfate [Proventil Hfa] 2 puff IH Q6HP PRN 10/13/20 10/13/20 History Amlodipine Besylate [Amlodipine 10 mg PO DAILY 10/13/20 10/13/20 History 10mg Tab] Atorvastatin Calcium [Lipitor 40mg 40 mg PO HS 10/13/20 10/13/20 History Tab] Fluticasone Propionate [Flovent 1 puff IH BID 10/13/20 10/13/20 History HFA] Meloxicam 15 mg PO DAILYP PRN 10/13/20 10/13/20 History Metoprolol Tartrate [Lopressor 25 mg PO BID 10/13/20 10/13/20 History 25mg tablet] Valacyclovir HCl [Valacyclovir] 500 mg PO DAILY 10/13/20 10/13/20 History lisinopriL [Lisinopril] 20 mg PO BID 10/13/20 10/13/20 History Allergies Allergy/AdvReac Type Severity Reaction Status Date / Time oxycodone [From Percocet] AdvReac Mild Verified 10/01/20 13:30 Exam Vital signs and Labs for Last 24 Hours: Temp Pulse Resp BP Pulse Ox 97.9 F 89 16 121/71 96 10/13/20 18:15 10/13/20 18:15 10/13/20 18:15 10/13/20 18:15 10/13/20 18:15 Laboratory Results -
[2020-10-14] VITALS: BP 111/58; PULSE 68; PULSE 70; RESP 20; TEMP 36.8; O2SAT 93
--- NOTE | 2020-10-14 03:03 | PC.NURSE ---
shift summary pts lung sounds are clear with sats maintained 93% or above on room air, with a rate ranging from 16-18.pt is alert and oriented X4. pt is able to ambulate to restroom unassisted. pt denies any pain, nausea, vomiting, or diarrhea.
[2020-10-14 04:00] VITALS: BP 116/68; PULSE 50; PULSE 84; RESP 16; TEMP 36.8; O2SAT 100
[2020-10-14 05:17] VITALS: BMI 38.6
--- NOTE | 2020-10-14 07:26 | HMH.PHAINT ---
home medication list completed using list from [facility]
[2020-10-14 07:57] LABS: Basophils # 0.1 K/mm3 (0-0.2); Basophils % 0.5 % (0.1-2.0); Eosinophils # 0.2 K/mm3 (0.0-0.4); Eosinophils % 1.8 % (0.1-12.0); Hematocrit 46.6 % (42.0-52.0); Hemoglobin 15.6 g/dL (14.1-18.0); Lymphocytes # 3.8 K/mm3 (0.7-4.5); Lymphocytes % 40.1 % (10-50); Mean Corpuscular HGB Conc 33.4 g/dL (31.8-35.4); Mean Corpuscular Hemoglobin 29.4 pg (27.0-31.2); Mean Corpuscular Volume 87.9 fl (80-94); Mean Platelet Volume 7.1 fl (7.4-10.4); Monocytes # 0.6 K/mm3 (0.1-1.0); Monocytes % 6.6 % (1.7-9.3); Neutrophils # 4.8 K/mm3 (1.8-7.8); Neutrophils % 50.9 % (37.0-80.0); Platelet Count 248 K/mm3 (142-424); Red Cell Distribution Width 13.9 % (11.5-17.5); White Blood Count 9.4 K/mm3 (4.8-10.8)
[2020-10-14 08:00] VITALS: BP 137/72; PULSE 79; PULSE 80; RESP 18; TEMP 36.9; O2SAT 96
--- NOTE | 2020-10-14 08:07 | P.PN_ITS ---
Subjective Date: 10/14/20 Time: 08:07 Principal diagnosis: Chest pain Interval history: 50-year-old white male in room in no acute distress. Results of the left heart catheterization and plan for treatment explained to the patient all questions answered. He now relates a severe episode of shortness of breath and chest discomfort Monday night while walking home from getting his haircut. He states symptoms were severe enough that he was not sure he was going to make it home. Exam Vital signs and Labs for Last 24 Hours: Temp Pulse Resp BP Pulse Ox 98.2 F 84 16 116/68 100 10/14/20 04:00 10/14/20 04:00 10/14/20 04:00 10/14/20 04:00 10/14/20 04:00 I & O for Last 24 hours: Intake & Output 10/11/20 10/12/20 10/13/20 10/14/20 11:59 11:59 11:59 11:59 Intake Total 1076 / 1076 Output Total 0 / 0 Balance 1076 / 1076 Weight 258 lb 261 lb - Constitutional no acute distress - *Routine HEENT Exam Head: Present: normocephalic Eye: Present: EOMI, PERRL ENT: Present: mucous membranes moist - *Routine Neck Exam Present: supple. Absent: lymphadenopathy - *Routine Respiratory Exam Present: CTA bilaterally - *Routine Cardiovascular Exam Present: RRR - *Routine Abdominal Exam Present: soft, normoactive bowel sounds. Absent: tenderness - *Routine Extremities Exam Absent: cyanosis, clubbing, edema - *Routine Skin Exam Present: warm. Absent: rash - *Routine Neurological Exam Present: alert, oriented X3 Progress Note: A&P (1) Non-ST elevation NV (NSTEMI) Status: Acute Assessment and plan: Non-ST elevation NV secondary to the loss of vein graft to the circumflex ar madeleine. Continue aspirin 81 mg daily we will add Plavix 75 mg daily for maintenance of vein graft to RCA and HOUSTON to LAD patency. (2) Obesity (BMI 30-39.9) Status: Acute (3) Hx of CABG Status: Chronic (4) Bipolar disorder Status: Chronic (5) CAD (coronary artery disease) Status: Chronic (6) Hyperlipemia Status: Chronic Assessment and plan: LDL 87 this admission. Continue statin therapy (7) Hypertension Status: Chronic Assessment and Plan for All Diagnoses:: Telemetry shows no arrhythmias overnight. Cardiac status stable from cardiology standpoint. Patient can be discharged home with follow-up as scheduled next week. Home medication recommendations Aspirin 81 mg daily Plavix 75 mg daily Metoprolol tartrate 25 mg twice daily Norvasc 10 mg daily Lisinopril 20 mg daily Atorvastatin 80 mg daily I have called in nitroglycerin sublingual for the patient to use as needed I have informed him to discontinue meloxicam use
[2020-10-14 08:11] LABS: Anion Gap 11.2 mEq/L (5-15); Blood Urea Nitrogen 12 mg/dl (9-20); Calcium 9.1 mg/dl (8.4-10.2); Carbon Dioxide 24 mmol/L (22.0-30.0); Chloride 104 mmol/L (98-107); Creatinine Clearance Estimated 168 mL/min (50-200); Estimated Glomerular Filt Rate 90 ml/min (>60); GFR (African American) 109 ML/MIN (>60); Glucose 184 mg/dl (74-100); Potassium 4.2 mmoL/L (3.5-5.1); Sodium 135 mmol/L (136-145)
--- NOTE | 2020-10-14 08:19 | HMH.DCSUM ---
General - General Admission date:: 10/13/20 Discharge date: 10/14/20 HPI HPI: 50-year-old male with history of coronary artery bypass grafting in 2009 presented to the emergency department for 3-day history of substernal chest pain, pain worse yesterday. No nausea, vomiting or diarrhea. Pt states the symptoms felt the same as prior to his bypass surgery. Tropoinin elevated, pain was relieved with nitro. Pt admitted for cardiac work up and eval of chest pain. Hospital Course Hospital Course: 50-year-old male with history of coronary artery bypass grafting in 2009 presented to the emergency department for 3-day history of substernal chest pain, pain worse yesterday. No nausea, vomiting or diarrhea. Pt states the symptoms felt the same as prior to his bypass surgery. Tropoinin elevated, pain was relieved with nitro. Pt admitted for cardiac work up and eval of chest pain. No elevated white blood cell count, hemoglobin/hematocrit stable Chemistries unremarkable Troponin number one 0.01, number two 0.03, and number three 0.09 CRP slightly elevated at 5.3 Is positive for rhinovirus 10/13/20 CXR: FINDINGS: Platelike atelectasis in the lung basis without evidence of consolidation. No pleural effusion or pneumothorax. Mild cardiomegaly with mild central pulmonary vascular congestion. Evidence of mediastinal surgery with sternotomy wires and CABG. IMPRESSION: Chronic changes without evidence of an active lung parenchymal lesion. Electronically signed by Joao Mir MD 10/13/2020 cardiac catheterization: ANGIOGRAPHIC RESULTS The left main artery Normal The left anterior descending artery Is proximally normal and then occluded in its mid segment distal to the second diagonal artery The circumflex artery Nondominant proximally occluded The right coronary artery Is a dominant vessel and subtotally occluded in its proximal to mid segment. There is scant antegrade flow from the rosebud vessel into the distal segment however the mid majority of the flow was coming from the saphenous vein graft The GRECO ventriculogram reveals Estimated at 45% The left ventricular end-diastolic pressure 10 mmHg Left internal mammary artery is widely patent into the LAD. Right at the anastomosis a 60 to 70% concentric stenosis is present The saphenous vein graft to the circumflex artery is acutely thrombosed with extensive clot throughout its entire graft The saphenous vein graft to the right coronary artery is widely patent IMPRESSION Acute extensive thrombosis of the saphenous vein graft supplying a nondominant circumflex artery Coronary disease as described above Ejection fraction 45% Normal left ventricular end-diastolic pressure PLAN 1. Medical management 2. The entire graft is thrombosed therefore any attempt at revascularizing such as thrombectomy or stenting would be fraught with complications and potential stroke. Medical management is most warranted for this nondominant vessel 3. Aggressive risk factor modification 4. It is unlikely the anastomosis lesion is hemodynamically severe at the HOUSTON LAD site. Medical management is most warranted 5. The elevated troponin stems from the acute occlusion of the saphenous vein graft Electronically signed by : Jose Jacobson, Cardiology has seen and recommends: Telemetry shows no arrhythmias overnight. Cardiac status stable from cardiology standpoint. Patient can be discharged home with follow-up as scheduled next week. Home medication recommendations Aspirin 81 mg daily Plavix 75 mg daily Metoprolol tartrate 25 mg twice daily Norvasc 10 mg daily Lisinopril 20 mg daily Atorvastatin 80 mg daily I have called in nitroglycerin sublingual for the patient to use as needed I have informed him to discontinue meloxicam use 50-year-old male patient sitting up in bed, denies any respiratory distress or chest pain during the night. Reports he is
--- NOTE | 2020-10-14 08:43 | CA_ITS ---
APPROVED REPORT Tax Investigator: AWAIS Laterality: Bilateral Study Quality: Good Indications: CAD, CP, Family Hx-carotid stenosis Risk Factors Hypertension: ex smoker Doppler Spectral Velocity Analysis ECA (R) 214.00/20.00 cm/s ECA (L) 239.60/29.50 cm/s dICA (R) 120.40/25.00 cm/s dICA (L) 124.00/26.70 cm/s Roger (R) 117.50/30.80 cm/s Roger (L) 105.90/25.70 cm/s pICA (R) 109.30/23.50 cm/s pICA (L) 64.20/11.60 cm/s dCCA (R) 110.10/18.20 cm/s dCCA (L) 105.00/18.30 cm/s pCCA (R) 160.40/28.90 cm/s pCCA (L) 136.80/22.20 cm/s Vert (R) 45.60/11.20 cm/s Vert (L) 52.40/16.00 cm/s ICA/CCA 1.00 ICA/CCA 1.18 Findings Duplex evaluation demonstrates antegrade flow of the bilateral vertebral arteries. Duplex evaluation demonstrates stenosis of the right proximal internal carotid artery <20% with PSV <140 cm/sec, EDV <100 cm/sec, and IC/CC Ratio <4.0. Duplex evaluation demonstrates stenosis of the left proximal internal carotid artery <20% with PSV <140 cm/sec, EDV <100 cm/sec, and IC/CC Ratio <4.0. Conclusion Duplex evaluation demonstrates antegrade flow of the bilateral vertebral arteries. Duplex evaluation demonstrates stenosis of the right proximal internal carotid artery <20% with PSV <140 cm/sec, EDV <100 cm/sec, and IC/CC Ratio <4.0. Duplex evaluation demonstrates stenosis of the left proximal internal carotid artery <20% with PSV <140 cm/sec, EDV <100 cm/sec, and IC/CC Ratio <4.0. Electronically signed by : Nettie Lopez, 10/15/2020 16:48:55
== END 2020-10-14 12:32 | disposition home or self-care (01) ==
LOC: ER 03:18 → 2ND 03:30
PROVIDERS: Internal Medicine; Nurse Practitioner Family; Admitting Provider Emergency Medicine; Emergency Provider Emergency Medicine; PCP Emergency Medicine; Visit Provider Emergency Medicine
DX: I21.4 Non-ST elevation (NSTEMI) myocardial infarction (principal); Z95.1 Presence of aortocoronary bypass graft; F31.32 Bipolar disorder, current episode depressed, moderate; I25.10 Atherosclerotic heart disease of native coronary artery without angina pectoris; I10 Essential (primary) hypertension; I25.708 Atherosclerosis of coronary artery bypass graft(s), unspecified, with other forms of angina pectoris; I25.82 Chronic total occlusion of coronary artery
CPT/HCPCS: 36415; 71046; 80048; 80061; 80076; 81001; 83036; 84145; 84484; 85025; 85651; 86140; 87581; 87633; 87798; 93005; 93459; 93880; 96365; 96375; 99152; 99284; C1725; C1769; C1894; G0378; J1644; Q9967

== ENCOUNTER → 2020-10-28 13:33 | Outpatient (CLI) | payer BC, SELFPAY | PROVIDERS: PCP Emergency Medicine; Visit Provider Internal Medicine Cardiovascular Disease | DX: G47.33 Obstructive sleep apnea (adult) (pediatric) (principal); R40.0 Somnolence | CPT/HCPCS: 95806 ==

== ENCOUNTER → 2021-01-15 11:20 | Outpatient (CLI) | payer BC, SELFPAY | PROVIDERS: Visit Provider Nurse Practitioner Family | DX: Z20.822 Contact with and (suspected) exposure to COVID-19 (principal); J02.9 Acute pharyngitis, unspecified | CPT/HCPCS: U0003 ==

== ENCOUNTER → 2021-02-12 09:19 | Outpatient (CLI) | payer BC, SELFPAY | PROVIDERS: Visit Provider Obstetrics & Gynecology Gynecology | DX: Z01.818 Encounter for other preprocedural examination (principal); Z11.52 Encounter for screening for COVID-19 | CPT/HCPCS: U0003 ==

== ENCOUNTER 2021-05-06 20:03 | Emergency (ER) | payer BC, SELFPAY ==
[2021-05-06 20:10] VITALS: BP 122/71; PULSE 98; RESP 19; TEMP 36.9; O2SAT 98; BMI 36.9
--- NOTE | 2021-05-06 20:36 | HMH.EDUTC ---
[facility] [place] Clinical Impression: Viral syndrome Disposition: Home, Self-Care Condition on Discharge: Good Instructions: Diarrhea, Nausea and Vomiting-Adult, DI for Fever (Symptom) -- Adult, Promethazine Additional Instructions: You was sent home with Phenergan take home pack take one half ever six hours as needed for nausea/vomiting *Monitor Temp, Over the counter Motrin or Tylenol as directed/as needed Tylenol every 4 hours and Motrin every 6 hours (as long as your family doctor has told you that you can take it) for fever or pain. and straight to ER if unable to lower temp less than 101.0 after medication given Drink extra fluids with and between meals. If you have difficulty drinking, try very small amounts of water or suck on ice chips. ? Avoid fruit juices, as these do not replace minerals and can actually increase diarrhea. ? Children and adults can use sports drinks to replenish electrolytes. Younger children and infants should use products formulated for children, like oral rehydration solutions. ? Eat food in small amounts and let your stomach recover. ? Get lots of rest. You may feel tired or weak. ? No greasy or fried foods for the next 24-48 hours BRAT diet Bananas Rice Apples and [employer] ? Make sure to drink plenty of liquids ? Return if needed ? Straight to ER if any life threatening symptoms ? Zofran as prescribed ? You was given an outpatient order for diarrhea panel, please collect specimen and bring back to outpatient lab then call back to the [facility] or follow up with family doctor for results ? Follow up with family doctor in the next 48-72 hours if no improvement or any worsening of symptoms Follow up IMMEDIATELY for new or worsening symptoms or no Noticeable improvement over the next 48-72 hours. 911 for difficulty breathing or swallowing You were tested for today for COVID19 your test result should be back in the next 24-48 hours, you may Check your results on the [facility] my health Portal if you have trouble logging on you may call for assistance, if you are positive you will get a call from someone here at the hospital to inform you of your positive result You was given a handout with instructions for Self Quarantine and Self isolation for while you wait on test results and what to do if they are positive If you are positive the Health Dept will be contacting you also Referrals: Alan Hutson MD [Primary Care Provider] - Forms: Work/School Release Medical Decision Making - Lino Inquiry Pt receiving controlled substance: No Lino was queried for this patient: No Vital Signs: 05/06/21 20:10 05/06/21 21:11 Temperature 98.4 F 98.4 F Temperature Source Oral Pulse Rate 98 H Pulse Rate [Right Brachial] 98 H Respiratory Rate 19 19 Blood Pressure 122/71 Blood Pressure [Right Arm] 122/71 Blood Pressure Mean [Right Arm] 88 Blood Pressure Source [Right Arm] Automatic Cuff Blood Pressure Position [Right Arm] Sitting 02 Sat by Pulse Oximetry 98 Oxygen Delivery Method Room Air Orders (Tests/Meds): ED MEDICATIONS Discontinued Medications Generic Name Dose Route Start Last Admin Trade Name Freq PRN Reason Stop Dose Admin Ondansetron HCl 4 mg 05/06/21 20:51 05/06/21 20:54 Ondansetron 4mg Odt SL 05/06/21 20:52 4 mg ONCE ONE Administration ORDERS Category Date Time Status Full Resp Panel w/COVID ([facility]) Routine Lab 05/06/21 20:16 Received Medical Decision Narrative: Patient states that he is feeling much better after zofran no longer having nausea, sitting in chair drinking water no vomiting since arrival Patient states that he would like to be sent home with some zofran or phenergan in case he gets nausea again States that he is feeling better now that he is drinking water Medications discussed with pharmacy and will dc home with phenergan 25mg take home pack and recommend breaking tablets in half and take every 6hr for nausea [facility] [place] - General Stated complain
[2021-05-06 20:54] LABS: Adenovirus,PCR Not Detected (NotDetected); Bordetella Pertussis Not Detected (NotDetected); Chlamydophila Pneumoniae, PCR Not Detected (NotDetected); Coronavirus 19, PCR Not Detected (NotDetected); Coronavirus 229E Not Detected (NotDetected); Coronavirus NL63 Not Detected (NotDetected); Coronavirus OC43 Not Detected (NotDetected); Coronovirus HKU1,PCR Not Detected (NotDetected); Human Metapneumovirus Not Detected (NotDetected); Influenza A, PCR Not Detected (NotDetected); Influenza AH1, 2009 Not Detected (NotDetected); Influenza AH1, PCR Not Detected (NotDetected); Influenza AH3,PCR Not Detected (NotDetected); Influenza B, PCR Not Detected (NotDetected); Mycoplasma Pneumoniae, PCR Not Detected (NotDetected); Parainfluenza 1, PCR Not Detected (NotDetected); Parainfluenza 2, PCR Not Detected (NotDetected); Parainfluenza 3, PCR Not Detected (NotDetected); Parainfluenza 4, PCR Not Detected (NotDetected); Respiratory Syncytial Virus Not Detected (NotDetected); Rhinovirus/Enterovirus Not Detected (NotDetected)
[2021-05-06 21:11] VITALS: BP 122/71; PULSE 98; RESP 19; TEMP 36.9; O2SAT 98
--- NOTE | 2021-05-06 21:30 | PC.NURSE ---
PATIENT DRANK 20 OZ OF WATER AND TOLERATED WELL WITH NO VOMITING
== END 2021-05-06 21:34 | disposition home or self-care (01) ==
PROVIDERS: Emergency Provider Nurse Practitioner; PCP Emergency Medicine
DX: B34.9 Viral infection, unspecified (principal); I10 Essential (primary) hypertension; I25.2 Old myocardial infarction; F41.8 Other specified anxiety disorders; Z20.822 Contact with and (suspected) exposure to COVID-19
CPT/HCPCS: 87581; 87632; 87798; 99203; C9803; G0463; U0003; U0005

== ENCOUNTER → 2021-10-15 09:53 | Outpatient (CLI) | payer BC, SELFPAY | PROVIDERS: Visit Provider Obstetrics & Gynecology Gynecology | DX: Z01.818 Encounter for other preprocedural examination (principal); Z11.52 Encounter for screening for COVID-19 | CPT/HCPCS: C9803; U0003; U0005 ==

== ENCOUNTER 2021-11-10 11:23 | Emergency (ER) | payer BC, SELFPAY ==
--- NOTE | 2021-11-10 11:43 | HMH.EDUTC ---
[facility] [place] Clinical Impression: Right hip pain, Radicular pain of right lower extremity Disposition: Home, Self-Care Condition on Discharge: Good Instructions: DI for Lumbar Radiculopathy, DI for Hip Pain Additional Instructions: Rest the extremity, Apply heat (such as a heating pad) to your right hip 3 or 4 times per day for around 10 minutes each time. Take the medications as directed. Follow up with Dr. Lopez (orthopedics) for further evaluation and treatment. I put in a referral but you need to call his office and schedule an appointment. Follow up with your regular doctor. GO TO THE ER FOR ANY WORSENING SYMPTOMS Prescriptions: predniSONE [Prednisone 20mg Tab] 20 mg PO BID 4 Days #8 tab Transmission Status: Received by [facility] [employer] Referrals: Alan Hutson MD [Primary Care Provider] - Vishal Lopez MD [Staff Physician] - Forms: Work/School Release Time of Disposition: 12:36 Medical Decision Making - Medical Records Medical records reviewed: No: I reviewed the patient's medical records. - Lino Inquiry Pt receiving controlled substance: No Vital Signs: 11/10/21 12:00 11/10/21 12:41 Temperature 98.2 F 98.2 F Temperature Source Oral Pulse Rate 76 Pulse Rate [Left Radial] 76 Respiratory Rate 17 17 Blood Pressure 141/85 H Blood Pressure [Right Arm] 141/85 H Blood Pressure Mean [Right Arm] 103 02 Sat by Pulse Oximetry 96 Orders (Tests/Meds): ED MEDICATIONS Discontinued Medications Generic Name Dose Route Start Last Admin Trade Name Freq PRN Reason Stop Dose Admin Ketorolac Tromethamine 30 mg 11/10/21 12:27 11/10/21 12:35 Ketorolac 60mg/2ml Vial IM 11/10/21 12:28 30 mg ONCE ONE Administration - Radiology Data #1 Image(s): Hip Image Reviewed: Yes I reviewed the patient's radiology image, Yes I have reviewed radiologist's interpretation Preliminary Findings: No Fracture Seen FINAL REPORT CLINICAL HISTORY: pain X SEVERAL DAYS WITH NO KNOWN INJURY FINDINGS: RIGHT HIP Three views were obtained. There is no acute fracture or dislocation. There is mild degenerative change. No soft tissue abnormality is identified. IMPRESSION: No acute process. Reviewed, Interpreted and Dictated by Al Lala III, MD Transcribed by Huong Puente Authenticated and . [facility] #2 Image(s): L-Spine Image Reviewed: Yes I reviewed the patient's radiology image, Yes I have reviewed radiologist's interpretation Preliminary Findings: Normal/NAD, No Fracture Seen FINAL REPORT CLINICAL HISTORY: pain X SEVERAL DAYS WITH NO KNOWN INJURY COMPARISON: 09/07/2018 FINDINGS: LUMBAR SPINE. Three views demonstrate no acute fracture. Moderate degenerative change with osteophytes are present. There is mild anterolisthesis of L4 on 5. Note is made of mild vascular calcification. Overall appearance is somewhat worse since previous. IMPRESSION: Degenerative changes as detailed above, somewhat worse. Reviewed, Interpreted and Dictated by Al Lala III, MD Transcribed by Huong Puente Authenticated and . [facility] Medical Decision Narrative: He refused any steroid injections. [facility] [place] - General Stated complaint: right hip pain Time Seen by Provider: 11/10/21 11:43 - History of Present Illness Provider Complaint: He states that he has had right hip pain for the past 3 days. He denies any known injury. He states that at times his hip catches and locks up and he has pain that radiates to his groin when it is locked up. He denies any fever or chills. - Related Data Home Medications Medication Instructions Recorded Confirmed metoprolol succinate 50 mg 50 mg PO DAILY tab 03/04/21 05/06/21 tablet,extended release 24 hr
[2021-11-10 12:00] VITALS: BP 141/85; PULSE 76; RESP 17; TEMP 36.8; O2SAT 96; BMI 35.4
[2021-11-10 12:41] VITALS: BP 141/85; PULSE 76; RESP 17; TEMP 36.8
== END 2021-11-10 12:41 | disposition home or self-care (01) ==
PROVIDERS: Emergency Provider Nurse Practitioner Family; PCP Emergency Medicine
DX: M25.551 Pain in right hip (principal); M79.604 Pain in right leg
CPT/HCPCS: 72100; 73502; 96372; 99212; G0463

== ENCOUNTER 2021-11-27 19:54 | Emergency (ER) | payer BC, SELFPAY ==
[2021-11-27 19:55] VITALS: BP 130/71; PULSE 89; RESP 18; TEMP 36.8; O2SAT 99; BMI 35.4
--- NOTE | 2021-11-27 20:07 | HMH.EDGENADL ---
ED Disposition Clinical Impression: Lumbar radiculopathy, right Disposition: Home, Self-Care Condition on Discharge: Good Prescriptions: Ketorolac Tromethamine [Toradol 10mg tablet] 10 mg PO Q6HP PRN 4 Days #16 tab MDD 40mg/day PRN Reason: Moderate Pain Transmission Status: Pending to [id number] methocarbamoL [Methocarbamol 500mg Tablet] 500 mg PO QIDP PRN 5 Days #20 tab PRN Reason: Muscle Spasm Transmission Status: Pending to [id number] Referrals: Alan Hutson MD [Primary Care Provider] - - Critical Care Critical Care Time: No Attestation: On , the high probability of a clinically significant, sudden or life threatening deterioration of the following system(s) required my full and direct attention, intervention and personal management. The time I documented below is in addition to time spent performing reported procedures but includes the following listed in this critical care notation. Medical Decision Making - Medical Records Medical records reviewed: Yes: I reviewed the patient's medical records. - Lino Inquiry Pt receiving controlled substance: No Vital Signs: 11/27/21 19:55 Temperature 98.2 F Temperature Source Oral Pulse Rate [Right] 89 Respiratory Rate 18 Blood Pressure [Right Arm] 130/71 Blood Pressure Mean [Right Arm] 90 Blood Pressure Source [Right Arm] Automatic Cuff 02 Sat by Pulse Oximetry 99 Oxygen Delivery Method Room Air - Lab Data Lab results reviewed: Yes: I reviewed the patient's lab results. Orders (Tests/Meds): ED MEDICATIONS Discontinued Medications Generic Name Dose Route Start Last Admin Trade Name Freq PRN Reason Stop Dose Admin Hydrocodone Bitart/Acetaminophen 1 tab 11/27/21 21:16 11/27/21 21:23 Hydrocodone/Apap 5/325 Mg Tablet PO 11/27/21 21:17 1 tab ONCE ONE Administration Ketorolac Tromethamine 15 mg 11/27/21 21:16 11/27/21 21:23 Ketorolac 30mg/Ml Vial IM 11/27/21 21:17 15 mg ONCE ONE Administration Lidocaine 1 each 11/27/21 21:17 11/27/21 21:36 Lidocaine 5% Transdermal Patch TP 11/27/21 21:18 1 each ONCE ONE Administration Methocarbamol 500 mg 11/28/21 09:00 Methocarbamol 500mg Tablet PO 11/28/21 09:01 ONCE ONE Methocarbamol 500 mg 11/27/21 21:37 11/27/21 21:37 Methocarbamol 500mg Tablet PO 11/27/21 21:38 500 mg ONCE ONE Administration Medical Decision Narrative: Carloz is a 51yo male presenting with a chief complaint of atraumatic lumbar back pain with radiation to the right lower extremity for 3 weeks. Differential diagnosis includes, but is not limited to, worsening degenerative disc disease, disc herniation, radiculopathy, cord compression, other. Initial exam, patient is hemodynamically stable, nontoxic-appearing. Patient is ambulatory. Has radicular symptoms with flexion at the hip of the right lower extremity. Denies bowel or bladder incontinence. Patient was counseled that to further evaluate his problem he would require CT imaging and preferably MRI of his lumbar spine. Patient stated that he has an appointment with his orthopedic doctor on Monday and is not interested in further imaging today. I reviewed his x-rays from prior visit which show worsening degenerative disc disease. Low suspicion clinically for cord compression or cauda equina. Patient refused further evaluation with imaging and I believe that patient has decision-making capacity at this time. I counseled him regarding the risks of deferring further evaluation. He stated he is only interested in pain control. He was treated with IV Toradol, p.o. Conesus and Robaxin and topical lidocaine patch. Post void urine is less than 10ccs. On reassessment, patient had a significant improvement in his symptoms. He was counseled to continue to look out for red flags and follow-up with Dr. Lopez on Monday. Discharged in a stable condition. General Adult HPI - General Stated complaint: rt hip
--- NOTE | 2021-11-27 21:53 | PC.NURSE ---
Post void residual completed by Trinity Hdez via bladder scanner as ordered by . Residual measured as less than 10cc of urine
[2021-11-27 22:35] VITALS: BP 125/78; PULSE 85; RESP 18; TEMP 36.7; O2SAT 98
== END 2021-11-27 22:49 | disposition home or self-care (01) ==
PROVIDERS: Emergency Provider Emergency Medicine; PCP Emergency Medicine
DX: M25.551 Pain in right hip (principal); M54.50 Low back pain, unspecified; M79.604 Pain in right leg; I25.10 Atherosclerotic heart disease of native coronary artery without angina pectoris; I25.2 Old myocardial infarction; I10 Essential (primary) hypertension
CPT/HCPCS: 96372; 99283

== ENCOUNTER → 2021-12-13 15:58 | Outpatient (CLI) | payer BC, SELFPAY ==
--- NOTE | 2021-12-13 15:58 | MR_ITS ---
PROCEDURE INFORMATION: Exam: MR Lumbar Spine Without Contrast Exam date and time: 12/13/2021 4:20 PM Age: 51 years old Clinical indication: Low back pain; Additional info: Low back pain radiating down rle TECHNIQUE: Imaging protocol: Magnetic resonance imaging of the lumbar spine without contrast. COMPARISON: CR XR LUMBAR SPINE 2-3V 11/10/2021 11:44 AM FINDINGS: Bones/joints: The lumbar vertebral bodies are normal in height. Grade 1 anterolisthesis of L4 on L5. A small concavity/Schmorl's node is identified of the superior L5 endplate. Spinal cord: The distal end of the conus medullaris ends at L1, normal in position. Multilevel findings: Degenerative disc disease is noted from L2-L3 through L4-L5, with disc bulge/osteophyte complexes. There is a decrease in the T2 signal intensity of the L3-L4 and L4-L5 discs. L1-L2: Mild bilateral facet arthropathy. An anterior disc bulge/osteophyte complex is seen. There is no significant narrowing of the thecal sac or neural foramina. L2-L3: Bilateral facet arthropathy. Minimal posterior disc bulging. There is no significant narrowing of the thecal sac or neural foramina. L3-L4: Facet arthropathy, left side greater than right. A broad-based disc bulge is identified causing minimal narrowing of the thecal sac. Prominence of posterior epidural fat identified. Mild right neural foraminal narrowing. There is slight narrowing of the inferior aspect of the left neural foramen. L4-L5: Bilateral facet arthropathy. A broad-based disc bulge/osteophyte complex is identified, with mild narrowing of the thecal sac. Mild prominence of posterior epidural fat. Narrowing of both lateral recesses. Moderate bilateral neural foraminal narrowing. Posterior to the right facet joint, there is a 4-5 mm T2 hyperintense cyst consistent with a synovial cyst. L5-S1: Bilateral facet arthropathy. No significant spinal canal stenosis or neural foraminal narrowing. Soft tissues: Minimal soft tissue swelling posteriorly. IMPRESSION: 1. Grade 1 anterolisthesis of L4 on L5. 2. Degenerative changes are identified diffusely within the lumbar spine, as described above. 3. Mild narrowing of the thecal sac at L4-L5, with minimal narrowing of the thecal sac at L3-L4. 4. Neural foraminal narrowing at L3-L4 and L4-L5. 5. Additional findings described above.
== END ==
PROVIDERS: PCP Emergency Medicine; Visit Provider Physician Assistant
DX: M79.604 Pain in right leg (principal); M54.50 Low back pain, unspecified; R29.2 Abnormal reflex; R29.898 Other symptoms and signs involving the musculoskeletal system
CPT/HCPCS: 72148; 76376

== ENCOUNTER 2022-02-11 16:48 | Emergency (ER) | payer BC, SELFPAY ==
--- NOTE | 2022-02-11 16:51 | EXP.UTC ---
Discharge Plan Prescriptions Prescriptions: No Action metoprolol succinate 50 mg tablet extended release 24 hr 50 mg PO DAILY Rx Instructions: 1 tablet po am and 1/2 tab at pm amlodipine 10 mg tablet 10 mg PO DAILY clopidogrel 75 mg tablet 75 mg PO DAILY isosorbide mononitrate 60 mg tablet extended release 24 hr 60 mg PO DAILY albuterol sulfate [Ventolin HFA] 90 mcg/actuation HFA aerosol inhaler 2 puff IH Q4-6H PRN (Reason: asthma) budesonide-formoterol [Symbicort] 160-4.5 mcg/actuation HFA aerosol inhaler 2 puff IH BID nitroglycerin 0.4 mg tablet, sublingual 0.4 mg SL Q5-15M PRN (Reason: cp) Rx Instructions: do not exceed 3 doses per episode ergocalciferol (vitamin D2) 1,250 mcg (50,000 unit) capsule 1,250 mcg PO WEEKLY Qty: 14 2RF hydrocodone-acetaminophen 5-325 mg tablet 1 tab PO BID PRN (Reason: pain) Qty: 60 0RF atorvastatin 80 MG tablet See Rx Instructions .Route .COMPLEX Rx Instructions: TAKE ONE TABLET BY MOUTH AT BEDTIME albuterol sulfate 1.25 MG/3 ML solution for nebulization See Rx Instructions .Route .COMPLEX Rx Instructions: INHALE CONTENTS OF 1 VIAL VIA NEBULIZER FOUR TIMES A DAY NEEDED FOR SHORTNESS OF BREATH OR WHEEZING lisinopril 20 MG tablet See Rx Instructions .Route .COMPLEX Rx Instructions: TAKE ONE TABLET BY MOUTH 2 TIMES A DAY aspirin 81 MG tablet,delayed release (DR/EC) See Rx Instructions .Route .COMPLEX Rx Instructions: TAKE ONE TABLET BY MOUTH ONCE A DAY FOR HEART HEALTH duloxetine 60 MG capsule,delayed release(DR/EC) See Rx Instructions .Route .COMPLEX Rx Instructions: TAKE ONE CAPSULE BY MOUTH ONCE A DAY methocarbamol 500 MG tablet 500 mg PO QIDP PRN (Reason: Muscle Spasm) 5 Days Qty: 20 0RF valacyclovir 500 mg tablet See Rx Instructions .Route .COMPLEX Rx Instructions: TAKE ONE TABLET BY MOUTH ONCE A DAY Referrals Follow up/Referrals: Alan Hutson MD [Primary Care Provider] - See instructions [place] [facility] [place] General Stated complaint: cough, runny nose, congestion Related Data Home Medications Medication Instructions Recorded Confirmed metoprolol succinate 50 mg 50 mg PO DAILY Hypertension 03/04/21 02/02/22 tablet,extended release 24 hr albuterol sulfate 90 mcg/actuation 2 puff inhalation Q4-6H PRN asthma 11/11/21 02/02/22 aerosol inhaler (Ventolin HFA) amlodipine 10 mg tablet 10 mg PO DAILY cardiac 11/11/21 02/02/22 budesonide-formoterol HFA 160 2 puff inhalation BID Asthma 11/11/21 02/02/22 mcg-4.5 mcg/actuation aerosol inhaler (Symbicort) clopidogrel 75 mg tablet 75 mg PO DAILY antiplate 11/11/21 02/02/22 isosorbide mononitrate 60 mg 60 mg PO DAILY htn 11/11/21 02/02/22 tablet,extended release 24 hr nitroglycerin 0.4 mg sublingual 0.4 mg sublingual Q5-15M PRN cp 11/11/21 02/02/22 tablet albuterol sulfate 1.25 mg/3 mL See Rx Instructions .Route 11/27/21 02/02/22 solution for nebulization .COMPLEX Asthma aspirin 81 mg tablet,delayed See Rx Instructions .Route 11/27/21 02/02/22 release .COMPLEX CAD atorvastatin 80 mg tablet See Rx Instructions .Route 11/27/21 02/02/22 .COMPLEX hld duloxetine 60 mg capsule,delayed See Rx Instructions .Route 11/27/21 02/02/22 release .COMPLEX . lisinopril 20 mg tablet See Rx Instructions .Route 11/27/21 02/02/22 .COMPLEX htn valacyclovir 500 mg tablet See Rx Instructions .Route 12/01/21 02/02/22 .COMPLEX mood Previous Rx's Medication Instructions Recorded ergocalciferol (vitamin D2) 1,250 1,250 mcg PO WEEKLY Supplement #14 06/09/21 mcg (50,000 unit) capsule caps methocarbamol 500 mg tablet 500 mg PO QIDP PRN Muscle Spasm 5 11/27/21 days #20 tabs hydrocodone 5 mg-acetaminophen 325 1 tab PO BID PRN pain #60 tabs 02/02/22 mg tablet Allergies Allergy/AdvReac Type Severity Reaction Status Date / Time cip
[2022-02-11 17:54] VITALS: BP 123/86; PULSE 68; RESP 18; TEMP 37.4; O2SAT 100; BMI 35.4
[2022-02-11 17:55] LABS: UTC Strep Screen (Rapid) Negative (Negative)
[2022-02-11 18:41] VITALS: BP 123/86; PULSE 68; RESP 18; TEMP 37.4
== END 2022-02-11 18:42 | disposition left against medical advice (07) ==
LOC: UTC 16:52
PROVIDERS: Emergency Provider Physician Assistant; PCP Emergency Medicine
DX: Z53.21 Procedure and treatment not carried out due to patient leaving prior to being seen by health care provider (principal)
CPT/HCPCS: 87880

== ENCOUNTER 2022-03-22 10:02 | Emergency (ER) | payer BC, SELFPAY ==
--- NOTE | 2022-03-22 10:03 | EXP.UTC ---
Discharge Plan Disposition Patient Disposition: Home, Self-Care Condition: Good Prescriptions Prescriptions: New amoxicillin [amoxicillin] 875 mg tablet 875 mg PO Q12H Qty: 20 0RF benzonatate [benzonatate] 100 mg capsule 100 mg PO TIDP PRN (Reason: Cough) Qty: 30 0RF methylprednisolone 4 mg Tablets,Dose Pack 4 mg PO DIRECTED Qty: 21 0RF No Action metoprolol succinate 50 mg tablet extended release 24 hr 50 mg PO DAILY Rx Instructions: 1 tablet po am and 1/2 tab at pm amlodipine 10 mg tablet 10 mg PO DAILY clopidogrel 75 mg tablet 75 mg PO DAILY isosorbide mononitrate 60 mg tablet extended release 24 hr 60 mg PO DAILY albuterol sulfate [Ventolin HFA] 90 mcg/actuation HFA aerosol inhaler 2 puff IH Q4-6H PRN (Reason: asthma) budesonide-formoterol [Symbicort] 160-4.5 mcg/actuation HFA aerosol inhaler 2 puff IH BID nitroglycerin 0.4 mg tablet, sublingual 0.4 mg SL Q5-15M PRN (Reason: cp) Rx Instructions: do not exceed 3 doses per episode hydrocodone-acetaminophen 5-325 mg tablet 1 tab PO BID PRN (Reason: pain) Qty: 60 0RF ergocalciferol (vitamin D2) 1,250 mcg (50,000 unit) capsule See Rx Instructions .ROUTE .COMPLEX Qty: 4 0RF Dose Instruction: TAKE ONE CAPSULE BY MOUTH EVERY WEEK Rx Instructions: TAKE ONE CAPSULE BY MOUTH EVERY WEEK duloxetine 60 mg capsule,delayed release(DR/EC) See Rx Instructions .ROUTE .COMPLEX Qty: 30 0RF Dose Instruction: TAKE ONE CAPSULE BY MOUTH ONCE A DAY Rx Instructions: TAKE ONE CAPSULE BY MOUTH ONCE A DAY valacyclovir 500 mg tablet See Rx Instructions .Route .COMPLEX Qty: 90 0RF Rx Instructions: TAKE ONE TABLET BY MOUTH ONCE A DAY atorvastatin 80 MG tablet See Rx Instructions .Route .COMPLEX Rx Instructions: TAKE ONE TABLET BY MOUTH AT BEDTIME albuterol sulfate 1.25 MG/3 ML solution for nebulization See Rx Instructions .Route .COMPLEX Rx Instructions: INHALE CONTENTS OF 1 VIAL VIA NEBULIZER FOUR TIMES A DAY NEEDED FOR SHORTNESS OF BREATH OR WHEEZING lisinopril 20 MG tablet See Rx Instructions .Route .COMPLEX Rx Instructions: TAKE ONE TABLET BY MOUTH 2 TIMES A DAY aspirin 81 MG tablet,delayed release (DR/EC) See Rx Instructions .Route .COMPLEX Rx Instructions: TAKE ONE TABLET BY MOUTH ONCE A DAY FOR HEART HEALTH methocarbamol 500 MG tablet 500 mg PO QIDP PRN (Reason: Muscle Spasm) 5 Days Qty: 20 0RF Referrals Follow up/Referrals: Alan Hutson MD [Primary Care Provider] - See instructions Activity Restrictions/Add. Instructions Additional Instructions/Restrictions: Drink plenty of fluids. Take tylenol or ibuprofen for pain or fever. Take the medications as directed. Follow up with your regular doctor. GO TO THE ER FOR ANY WORSENING SYMPTOMS Quarantine until you know the results of your covid-19 test. Notify your school or workplace of your results and follow their instructions regarding return to work/school. Clinical Impressions Clinical Impression: Pharyngitis, Viral syndrome Stand Alone Forms Stand Alone Forms: Work/School Release Instructions Patient Instructions: DI for Strep Throat, DI for Viral Syndrome Discharge ED Provider: Mario Burdick [facility] [place] HPI General Stated complaint: Sore throat, fever Time Seen by Provider: 03/22/22 10:14 History of Present Illness Provider Complaint: He states that he has had a sore throat for the past 3 days. He has had low grade fever and chills also. Related Data Home Medications Medication Instructions Recorded Confirmed metoprolol succinate 50 mg 50 mg PO DAILY Hypertension 03/04/21 02/02/22 tablet,extended release 24 hr albuterol sulfate 90 mcg/actuation 2 puff inhalation Q4-6H PRN asthma 11/11/21 02/02/22 aerosol inhaler (Ventolin HFA) amlodipine 10 mg tablet 10 mg PO DAILY cardiac 11/11/21 02/02/22 bud
[2022-03-22 10:16] VITALS: BP 132/79; PULSE 72; RESP 16; TEMP 36.6; O2SAT 100; BMI 35.4
[2022-03-22 10:21] LABS: UTC Strep Screen (Rapid) Negative (Negative)
[2022-03-22 11:05] VITALS: BP 132/79; PULSE 72; RESP 16; TEMP 36.6
== END 2022-03-22 11:06 | disposition home or self-care (01) ==
PROVIDERS: Emergency Provider Nurse Practitioner Family; PCP Emergency Medicine
DX: J02.9 Acute pharyngitis, unspecified (principal); B34.9 Viral infection, unspecified; R07.9 Chest pain, unspecified; R06.02 Shortness of breath; M79.671 Pain in right foot; R05.9 Cough, unspecified; Z20.822 Contact with and (suspected) exposure to COVID-19; I10 Essential (primary) hypertension; I25.110 Atherosclerotic heart disease of native coronary artery with unstable angina pectoris; M62.838 Other muscle spasm; E78.5 Hyperlipidemia, unspecified; G89.29 Other chronic pain; E66.9 Obesity, unspecified; E55.9 Vitamin D deficiency, unspecified; J44.9 Chronic obstructive pulmonary disease, unspecified; F31.9 Bipolar disorder, unspecified; F41.9 Anxiety disorder, unspecified; Z79.02 Long term (current) use of antithrombotics/antiplatelets; Z79.51 Long term (current) use of inhaled steroids; Z79.52 Long term (current) use of systemic steroids; Z79.82 Long term (current) use of aspirin; Z79.899 Other long term (current) drug therapy; Z95.1 Presence of aortocoronary bypass graft; Z88.5 Allergy status to narcotic agent; Z88.6 Allergy status to analgesic agent; Z88.8 Allergy status to other drugs, medicaments and biological substances; Z87.891 Personal history of nicotine dependence; Z68.30 Body mass index [BMI] 30.0-30.9, adult
CPT/HCPCS: 87880; 99283; C9803; U0003; U0005

== ENCOUNTER → 2022-06-27 10:18 | Outpatient (CLI) | payer BC, SELFPAY ==
[2022-06-27 17:22] LABS: Alanine Aminotransferase 30 U/L (12-78); Albumin Level 4.3 g/dl (3.5-5.0); Albumin/Globulin Ratio 1.7 (1.1-1.8); Alkaline Phosphatase 88 U/L (38-126); Anion Gap 12.4 mEq/L (5-15); Aspartate Amino Transferase 31 U/L (17-59); Bilirubin,Total 0.7 mg/dl (0.2-1.3); Blood Urea Nitrogen 14 mg/dl (9-20); Calcium 8.6 mg/dl (8.4-10.2); Carbon Dioxide 24 mmol/L (22.0-30.0); Chloride 108 mmol/L (98-107); Chol/HDL Ratio 4.4 (1-3.5); Cholesterol 148 mg/dl (140-200); Estimated Glomerular Filt Rate 103 ml/min (>60); GFR (African American) 124 ML/MIN (>60); Globulin 2.6 g/dL (1.3-3.2); Glucose 103 mg/dl (74-100); HDL Cholesterol 34 mg/dl (40-60); Potassium 4.4 mmoL/L (3.5-5.1); Sodium 140 mmol/L (136-145); Total Protein,Serum 6.9 g/dl (6.3-8.2); Triglycerides 102 mg/dl (30-150); VLDL Cholesterol 20 mg/dL (0-40)
[2022-06-27 17:26] LABS: Basophils # 0.1 K/mm3 (0-0.2); Basophils % 1.4 % (0.1-2.0); Eosinophils # 0.2 K/mm3 (0.0-0.4); Eosinophils % 3.5 % (0.1-12.0); Hematocrit 50.6 % (42.0-52.0); Lymphocytes # 3.2 K/mm3 (0.7-4.5); Lymphocytes % 50.3 % (10-50); Mean Corpuscular HGB Conc 31.6 g/dL (31.8-35.4); Mean Corpuscular Hemoglobin 28.6 pg (27.0-31.2); Mean Corpuscular Volume 90.4 fl (80-94); Mean Platelet Volume 8.6 fl (7.4-10.4); Monocytes # 0.5 K/mm3 (0.1-1.0); Monocytes % 7.3 % (1.7-9.3); Neutrophils # 2.4 K/mm3 (1.8-7.8); Neutrophils % 37.5 % (37.0-80.0); Platelet Count 295 K/mm3 (142-424); Red Blood Count 5.59 M/mm3 (4.60-6.20); Red Cell Distribution Width 13.6 % (11.5-17.5); White Blood Count 6.4 K/mm3 (4.8-10.8)
[2022-06-27 17:28] LABS: MANUAL DIFFERENTIAL MANUAL DIFFERENTIAL (MANUAL DIFF)
[2022-06-27 17:33] LABS: Direct LDL Cholesterol 83.29 mg/dL (100-129)
[2022-06-27 17:38] LABS: 25-OH Vitamin D, Total 42.7 ng/mL (30-100)
[2022-06-27 17:48] LABS: Hemoglobin A1C 6.2 % (4.0-6.0)
[2022-06-27 17:53] LABS: Prostate Specific Ag Screen 1.1 ng/ml (0.0-4.0); Thyroid Stimulating Hormone 1.05 uIU/mL (0.465-4.68)
[2022-06-27 18:18] LABS: Lymphocytes % 51 % (10-50); Monocytes % 7 % (2-9); Neutrophils % 42 % (42-76); Total Cells Counted 100
[2022-06-27 18:19] LABS: Platelet Estimate Normal; RBC Morphology Normal
== END ==
PROVIDERS: PCP Student in an Organized Health Care Education/Training Program; Visit Provider Student in an Organized Health Care Education/Training Program
DX: I25.10 Atherosclerotic heart disease of native coronary artery without angina pectoris (principal); E78.5 Hyperlipidemia, unspecified; F41.9 Anxiety disorder, unspecified; Z13.1 Encounter for screening for diabetes mellitus; Z12.5 Encounter for screening for malignant neoplasm of prostate; E55.9 Vitamin D deficiency, unspecified
CPT/HCPCS: 80053; 80061; 82306; 83036; 84443; 85007; 85025; G0103

== ENCOUNTER → 2022-06-30 11:18 | Outpatient (CLI) | payer BC, SELFPAY ==
--- NOTE | 2022-06-30 11:20 | XR_ITS ---
FINAL REPORT TECHNIQUE: 2 view chest CLINICAL HISTORY: wheezing COMPARISON: 10/13/2020 FINDINGS: No acute pulmonary opacities present. There is no evidence of effusion or pneumothorax. There is evidence of prior median sternotomy, presumably from CABG. Otherwise mediastinum is unremarkable. The heart is normal in size. IMPRESSION: Unremarkable chest, status post CABG. Reviewed, Interpreted and Dictated by Atul Tam MD Transcribed by Shayy Jiang Authenticated and [facility]
== END ==
PROVIDERS: PCP Emergency Medicine; Visit Provider Student in an Organized Health Care Education/Training Program
DX: R06.2 Wheezing (principal)
CPT/HCPCS: 71046

== ENCOUNTER 2022-07-02 12:51 | Emergency (ER) | payer BC, SELFPAY ==
[2022-07-02] VITALS (7 sets, daily range): BP systolic 134–156; BP diastolic 76–84; PULSE 69–83; RESP 16–18; TEMP 36.6–36.7; O2SAT 95–99; BMI 36.9
--- NOTE | 2022-07-02 13:05 | HMH.EDBACK ---
Discharge Plan Disposition Patient Disposition: Home, Self-Care Condition: Fair Prescriptions Prescriptions: New ketorolac 10 mg Tablet 10 mg PO Q6H PRN (Reason: pain.) Qty: 8 0RF cyclobenzaprine 10 mg tablet 10 mg PO TID PRN (Reason: muscle spasm) Qty: 20 0RF hydrocodone-acetaminophen 5-325 mg tablet 1 tab PO TID PRN (Reason: pain) Qty: 14 0RF No Action metoprolol succinate 50 mg tablet extended release 24 hr 50 mg PO DAILY Rx Instructions: 1 tablet po am and 1/2 tab at pm amlodipine 10 mg tablet 10 mg PO DAILY isosorbide mononitrate 60 mg tablet extended release 24 hr 60 mg PO DAILY albuterol sulfate [Ventolin HFA] 90 mcg/actuation HFA aerosol inhaler 2 puff IH Q4-6H PRN (Reason: asthma) budesonide-formoterol [Symbicort] 160-4.5 mcg/actuation HFA aerosol inhaler 2 puff IH BID nitroglycerin 0.4 mg tablet, sublingual 0.4 mg SL Q5-15M PRN (Reason: cp) Rx Instructions: do not exceed 3 doses per episode methylprednisolone 4 mg tablets,dose pack See Rx Instructions PO PER PKG DIR Qty: 21 0RF Rx Instructions: PO PER PKG DIR ergocalciferol (vitamin D2) 1,250 mcg (50,000 unit) capsule See Rx Instructions .ROUTE .COMPLEX Qty: 4 2RF Dose Instruction: TAKE ONE CAPSULE BY MOUTH EVERY WEEK Rx Instructions: TAKE ONE CAPSULE BY MOUTH EVERY WEEK duloxetine 60 mg capsule,delayed release(DR/EC) See Rx Instructions .ROUTE .COMPLEX Qty: 30 2RF Dose Instruction: TAKE ONE CAPSULE BY MOUTH ONCE A DAY Rx Instructions: TAKE ONE CAPSULE BY MOUTH ONCE A DAY valacyclovir 500 mg tablet See Rx Instructions .Route .COMPLEX Qty: 90 0RF Rx Instructions: TAKE ONE TABLET BY MOUTH ONCE A DAY fluticasone propionate 50 mcg/actuation spray,suspension 1 spray intranasal DAILY Qty: 16 2RF Rx Instructions: administer into each nostril atorvastatin 80 MG tablet See Rx Instructions .Route .COMPLEX Rx Instructions: TAKE ONE TABLET BY MOUTH AT BEDTIME albuterol sulfate 1.25 MG/3 ML solution for nebulization See Rx Instructions .Route .COMPLEX Rx Instructions: INHALE CONTENTS OF 1 VIAL VIA NEBULIZER FOUR TIMES A DAY NEEDED FOR SHORTNESS OF BREATH OR WHEEZING lisinopril 20 MG tablet See Rx Instructions .Route .COMPLEX Rx Instructions: TAKE ONE TABLET BY MOUTH 2 TIMES A DAY aspirin 81 MG tablet,delayed release (DR/EC) See Rx Instructions .Route .COMPLEX Rx Instructions: TAKE ONE TABLET BY MOUTH ONCE A DAY FOR HEART HEALTH Referrals Follow up/Referrals: Alan Hutson MD [Primary Care Provider] - See instructions Activity Restrictions/Add. Instructions Additional Instructions/Restrictions: Avoid heavy lifting greater than 4 pounds. Follow-up with your primary care doctor in about 3 to 4 days if you do not improve. Avoid repeated bending or stooping. Return to the emergency department immediately if you feel worse in any way. Clinical Impressions Clinical Impression: Low back pain Instructions Patient Instructions: DI for Chronic Pain -- Adult Discharge ED Provider: Marisa Pineda Back Pain HPI General Chief Complaint: PAIN Stated Complaint: back pain, no accident Time Seen by Provider: 07/02/22 13:05 History of Present Illness HPI Narrative: The patient presents to the emergency department complaining of a 3 to 4-day history of worsening back pain. He has chronic back pain and has documented intravertebral disc disease. He denies any recent injury. But he states that the pain has been getting worse over the last few days. He is currently on steroids for an asthma exacerbation. He denies any neurological deficits. Complaint: back pain Related Data Home Medications Medication Instructions Recorded Confirmed metoprolol succinate 50 mg 50 mg PO DAILY Hypertension 03/04/21 06/27/22 tablet,extended release 24 hr albuterol sulfate 90
--- NOTE | 2022-07-02 14:39 | PC.NURSE ---
DR. FUENTES NOTIFIED THAT PT HAS HAD NO RELIEF FROM EARLIER MEDICATION, WILL BE IN TO SEE PT
--- NOTE | 2022-07-02 14:45 | PC.NURSE ---
DR. FUENTES AT BEDSIDE
== END 2022-07-02 15:10 | disposition home or self-care (01) ==
PROVIDERS: Emergency Provider Emergency Medicine; PCP Emergency Medicine
DX: M54.50 Low back pain, unspecified (principal); G89.29 Other chronic pain; M51.16 Intervertebral disc disorders with radiculopathy, lumbar region; F41.9 Anxiety disorder, unspecified; J45.909 Unspecified asthma, uncomplicated; F31.9 Bipolar disorder, unspecified; I25.10 Atherosclerotic heart disease of native coronary artery without angina pectoris; J44.9 Chronic obstructive pulmonary disease, unspecified; I10 Essential (primary) hypertension; I25.2 Old myocardial infarction; E03.9 Hypothyroidism, unspecified; Z95.1 Presence of aortocoronary bypass graft; Z87.891 Personal history of nicotine dependence
CPT/HCPCS: 96372; 99283; 99284

== ENCOUNTER → 2022-07-11 09:56 | Outpatient (CLI) | payer BC, SELFPAY ==
[2022-07-11 10:20] VITALS: PULSE 57; PULSE 64
== END ==
PROVIDERS: PCP Emergency Medicine; Visit Provider Student in an Organized Health Care Education/Training Program
DX: R06.00 Dyspnea, unspecified (principal)
CPT/HCPCS: 94060; 94640

== ENCOUNTER 2022-07-26 14:30 | Outpatient (RCR) | payer BC, SELFPAY ==
--- NOTE | 2022-07-19 15:45 | HMH.PTOPEV ---
PT Outpatient Evaluation Rehab PT Outpatient Evaluation Start: 07/19/22 15:03 Freq: Status: Active Protocol: Document 07/19/22 15:36 ENRIQUE (Rec: 07/19/22 15:45 ENRIQUE [id number]) E-signed By Ismael Townsend, PT Outpatient Therapy Subjective History Subjective History Pt reports h/o intermittent LBP with right LE s/s. Pt reports LBP since spring, with intermittent right LE radicular s/s from hip to toes . Pt reports recent MRI has revealed 'slipped discs'. Pt reports intermittent episodes of right LE 'giving out.' PMH: DM, COPD Chief Complaint Pain,Stiff,Gives out/Unstable, Paresthesia,Weakness Symptom Type Ache,Sharp,Dull,Numbness, Tingling Symptoms Relieved By Rest/Positioning,OTC Meds Symptoms Aggravated By Standing,Walking,Lifting Prior Functional Limitations Lifting,Housework,Standing, Bending/Stooping Current Functional Limitations Lifting,Housework,Standing, Walking,Bending/Stooping Symptom Description Intermittent Level of pain today (0-10) 0 Pain scale - at its best (0-10) 0 Pain scale - at its worst (0-10) 6 Lumbopelvic Eval Posture Thoracic Spine Posture Standing Position Flattened Lumbar Spine Posture Standing Position Flattened Assistive device Assistive Devices None / NA Gait Observation General Gait Pattern Observation Antalgic Gait Palapation tenderness left lumbar spinal tenderness Yes: 2/4 paraspinal tenderness Yes: 2/4 buttock tenderness Yes: 2/4 Lumbar/Sacral Palpation Findings Tenderness,Trigger Point right lumbar spinal tenderness Yes: 2/4 paraspinal tenderness Yes: 3/4 buttock tenderness Yes: 3/4 Lumbar/Sacral Palpation Findings Tenderness,Trigger Point Accessory Movement L-spine Vertebrae Accessory Movements [facility] [place] that Elicit Symptoms L2 bilateral L3 bilateral L4 bilateral Range of Motion Lumbar Spine Active Flexion Range of 0-50 Motion (degrees) Lumbar Spine Active Extension Range of 0-20 Motion (degrees) Left Lumbar Spine Lateral Flexion Active 0-20 Range of Motion (degrees) Right Lumbar Spine Lateral Flexion 0-20 Active Range of Motion (degrees) Lumbar Spine ROM Limitations Pain Manual Muscle Test Bilateral Knee Extension Strength Grade 5 Normal
== END 2022-07-26 14:35 | disposition home or self-care (01) ==
LOC: PT 14:30
PROVIDERS: PCP Student in an Organized Health Care Education/Training Program; Visit Provider Student in an Organized Health Care Education/Training Program
DX: M54.50 Low back pain, unspecified (principal)
CPT/HCPCS: 97163

== ENCOUNTER → 2022-09-09 10:42 | Outpatient (CLI) | payer BC, SELFPAY ==
[2022-09-09 11:11] LABS: Basophils # 0.1 K/mm3 (0-0.2); Basophils % 1.3 % (0.1-2.0); Eosinophils # 0.2 K/mm3 (0.0-0.4); Eosinophils % 3.2 % (0.1-12.0); Hematocrit 50.8 % (42.0-52.0); Hemoglobin 15.7 g/dL (14.1-18.0); Lymphocytes # 3.6 K/mm3 (0.7-4.5); Lymphocytes % 48.6 % (10-50); Mean Corpuscular Volume 93.6 fl (80-94); Monocytes # 0.7 K/mm3 (0.1-1.0); Monocytes % 8.9 % (1.7-9.3); Neutrophils # 2.8 K/mm3 (1.8-7.8); Platelet Count 228 K/mm3 (142-424); Red Blood Count 5.43 M/mm3 (4.60-6.20); Red Cell Distribution Width 13.7 % (11.5-17.5); White Blood Count 7.4 K/mm3 (4.8-10.8)
[2022-09-13 18:09] LABS: D001-IgE D pteronyssinus <0.10 kU/L (Class 0); D002-IgE D farinae <0.10 kU/L (Class 0); E001-IgE Cat Dander <0.10 kU/L (Class 0); E005-IgE Dog Dander <0.10 kU/L (Class 0); E072-IgE Mouse Urine <0.10 kU/L (Class 0); G002-IgE Bermuda Grass <0.10 kU/L (Class 0); G006-IgE Timothy Grass <0.10 kU/L (Class 0); I006-IgE Cockroach, German <0.10 kU/L (Class 0); Immunoglobulin E, Total 28 IU/mL (6-495); M001-IgE Penicillium chrysogen <0.10 kU/L (Class 0); M002-IgE Cladosporium herbarum <0.10 kU/L (Class 0); M003-IgE Aspergillus fumigatus <0.10 kU/L (Class 0); M006-IgE Alternaria alternata <0.10 kU/L (Class 0); T001-IgE Maple/Box Elder <0.10 kU/L (Class 0); T003-IgE Common Silver Birch <0.10 kU/L (Class 0); T006-IgE Cedar, Mountain <0.10 kU/L (Class 0); T007-IgE Oak, White <0.10 kU/L (Class 0); T008-IgE Elm, American <0.10 kU/L (Class 0); T010-IgE Walnut <0.10 kU/L (Class 0); T011-IgE Maple Leaf Sycamore <0.10 kU/L (Class 0); T014-IgE Cottonwood <0.10 kU/L (Class 0); T015-IgE Ash, White <0.10 kU/L (Class 0); T022-IgE Pecan, Hickory <0.10 kU/L (Class 0); T070-IgE White Mulberry <0.10 kU/L (Class 0); W001-IgE Ragweed, Short <0.10 kU/L (Class 0); W011-IgE Thistle, Russian <0.10 kU/L (Class 0); W014-IgE Pigweed, Common <0.10 kU/L (Class 0); W018-IgE Sheep Sorrel <0.10 kU/L (Class 0)
[2022-09-14 16:13] LABS: Alpha-1-Antitrypsin 184 mg/dL (101-187)
== END ==
PROVIDERS: PCP Student in an Organized Health Care Education/Training Program; Visit Provider Internal Medicine Pulmonary Disease
DX: J45.909 Unspecified asthma, uncomplicated (principal)
CPT/HCPCS: 36415; 82103; 82104; 82785; 85025; 86003

== ENCOUNTER → 2022-09-19 23:46 | Outpatient (CLI) | payer BC, SELFPAY ==
[2022-09-19 18:14] LABS: Basophils % 0.7 % (0.1-2.0); Eosinophils # 0.2 K/mm3 (0.0-0.4); Eosinophils % 2.7 % (0.1-12.0); Hematocrit 49.7 % (42.0-52.0); Hemoglobin 16.3 g/dL (14.1-18.0); Lymphocytes # 2.6 K/mm3 (0.7-4.5); Lymphocytes % 45.2 % (10-50); Mean Corpuscular HGB Conc 32.8 g/dL (31.8-35.4); Mean Corpuscular Hemoglobin 30.1 pg (27.0-31.2); Mean Corpuscular Volume 91.8 fl (80-94); Monocytes # 0.4 K/mm3 (0.1-1.0); Monocytes % 5.9 % (1.7-9.3); Neutrophils # 2.7 K/mm3 (1.8-7.8); Neutrophils % 45.6 % (37.0-80.0); Platelet Count 244 K/mm3 (142-424); Red Blood Count 5.41 M/mm3 (4.60-6.20); Red Cell Distribution Width 13.7 % (11.5-17.5); White Blood Count 5.9 K/mm3 (4.8-10.8)
[2022-09-19 18:16] LABS: Chloride 105 mmol/L (98-107); Sodium 137 mmol/L (136-145)
[2022-09-19 18:17] LABS: Potassium 3.9 mmoL/L (3.5-5.1)
[2022-09-19 18:19] LABS: Alanine Aminotransferase 29 U/L (12-78); Albumin/Globulin Ratio 1.7 (1.1-1.8); Alkaline Phosphatase 92 U/L (38-126); Anion Gap 12.9 mEq/L (5-15); Aspartate Amino Transferase 33 U/L (17-59); Bilirubin,Total 0.5 mg/dl (0.2-1.3); Blood Urea Nitrogen 10 mg/dl (9-20); Carbon Dioxide 23 mmol/L (22.0-30.0); Estimated Glomerular Filt Rate 102 ml/min (>60); GFR (African American) 124 ML/MIN (>60); Globulin 2.4 g/dL (1.3-3.2); Total Protein,Serum 6.4 g/dl (6.3-8.2)
[2022-09-19 18:20] LABS: Calcium 8.2 mg/dl (8.4-10.2); Glucose 205 mg/dl (74-100)
[2022-09-19 20:23] LABS: Hemoglobin A1C 6.1 % (4.0-6.0)
== END ==
PROVIDERS: PCP Student in an Organized Health Care Education/Training Program; Visit Provider Student in an Organized Health Care Education/Training Program
DX: R06.02 Shortness of breath (principal); E11.9 Type 2 diabetes mellitus without complications; Z79.84 Long term (current) use of oral hypoglycemic drugs
CPT/HCPCS: 80053; 83036; 85025

== ENCOUNTER → 2022-10-24 14:22 | Outpatient (CLI) | payer BC, SELFPAY ==
--- NOTE | 2022-10-24 14:23 | CT_ITS ---
FINAL REPORT CLINICAL HISTORY: lung cancer screening. former smoker quit 3 years ok. 1ppd x 25 years copd, CAD FINDINGS: CTDI vol (mGy): 2.90. DLP: 102.[address] images of the chest were obtained using the low-dose protocol for screening.Patient is status post median sternotomy. There is no evidence of mediastinal or hilar mass or adenopathy. No axillary mass or adenopathy is identified. On the lung window images, a 4 mm nodule is seen near the minor fissure on axial image 40. There is a calcified granuloma in the right lower lobe. Mild scarring is noted. IMPRESSION: 4 mm nodule near the minor fissure. Lung RADS category 2. Recommend 12 month followup low-dose CT for further evaluation. Reviewed, Interpreted and Dictated by Al Lala III, MD Transcribed by Daria Acuña Authenticated and [facility]
== END ==
PROVIDERS: PCP Student in an Organized Health Care Education/Training Program; Visit Provider Internal Medicine Pulmonary Disease
DX: Z87.891 Personal history of nicotine dependence (principal); Z12.2 Encounter for screening for malignant neoplasm of respiratory organs; R06.09 Other forms of dyspnea
CPT/HCPCS: 71271; 94060; 94618

== ENCOUNTER 2022-11-18 09:26 | Day surgery (SDC) | payer BC, SELFPAY ==
[2022-11-17 09:07] VITALS: BMI 33.2
[2022-11-18 09:51] VITALS: BP 124/69; PULSE 66; RESP 18; TEMP 36.6; O2SAT 93
[2022-11-18 10:12] LABS: POC Glucose,Bedside 90 (70-110)
[2022-11-18 10:19] VITALS: O2SAT 93
--- NOTE | 2022-11-18 10:44 | P.PCN_ITS ---
Procedure: Date: 11/18/22 Patient Date of :: 1970 Procedure Performed:: Proctosigmoidoscopy Indications:: Patient is a 52-year-old male with history of asthma, COPD, coronary artery disease, prior CABG, reportedly bipolar disorder, hypertension, depression, hyperlipidemia referred by Desire Schwartz for initial screening colonoscopy. Patient is relatively asymptomatic. In the preoperative area he did state that he had a small place near the anus which occasionally swells and has been present about 1 year. Performing Provider:: Al Marino MD Referring Provider:: Desire schwartz Sedation:: MAC sedation Procedure:: Visual inspection was carried out at the anal region. He had an anterior anal skin tag likely from previous hemorrhoid. Digital examination was performed which revealed normal sphincter tone with uniformly enlarged prostate. Variable stiffness Olympus colonoscope was inserted via the anus. Within the rectum there was opaque thick liquid stool encountered. Thorough suctioning and irr igation was performed. Colonoscope was advanced to the rectosigmoid region at which additional stool and solid stool balls were encountered. Procedure was aborted and the colonoscope was withdrawn. Findings:: Extremely poor prep Recommendations:: Repeat colonoscopy multi day aggressive prep Complications:: None Estimated blood obtained (mL): 0 Colonoscopy Component Colonoscopy Component Was a colonoscopy performed during today's procedure?: No
[2022-11-18 10:45] VITALS: BP 99/62; PULSE 66; RESP 18; TEMP 36.9; O2SAT 93
[2022-11-18 10:55] VITALS: BP 121/72; PULSE 64; RESP 16; O2SAT 97
[2022-11-18 11:05] VITALS: BP 128/76; PULSE 63; RESP 16; O2SAT 97
[2022-11-18 11:15] VITALS: BP 128/75; PULSE 62; RESP 18; TEMP 36.9; O2SAT 96
--- NOTE | 2022-11-18 18:20 | EXP.ANES.CKL ---
[facility] Disclaimer: The information contained in this section may have been updated after the patient was seen, as this information can be updated by other users. Medical History Allergic rhinitis, unspecified Angina pectoris Anxiety Asthma Asthma Bipolar disorder CAD (coronary artery disease) Chest pain Chronic pain in right foot COPD (chronic obstructive pulmonary disease) Daytime somnolence Depression Dyspnea Dyspnea on exertion Encounter for screening for malignant neoplasm of lung in patient with less than 30 pack year smoking history Family history of alpha 1 antitrypsin deficiency Hyperlipemia Hypertension Non-ST elevation [place] (NSTEMI) Obesity (BMI 30-39.9) Restless sleeper Screening for lung cancer Stopped smoking with greater than 20 pack year history Toe deformity, acquired Unstable angina pectoris Vitamin D deficiency (~10/04/17) Surgical History History of heart artery stent History of surgery on lower extremity Hx of CABG Family History Other Asthma COPD (chronic obstructive pulmonary disease) Coronary artery disease Diabetes Hyperlipidemia Hypertension Social History Smoking Status: Former smoker alcohol intake: current substance use type: denies use current occupational status: other Travel in the last 8 weeks: None household members: family housing: house [facility] Anesthesia Checklist Patient Identification Patient Identification: Arm Band and Other: Structural Data Admitted From: Home Planned Operative Procedure/s: colonoscopy Consent for Planned Operative Procedure(s) Verified: Yes NPO Status Verified Time NPO: 00:00 Additional verifications Patient : No Anesthesia Reactions: No Hx Blood Transfusions: No Blood Transfusion Reaction: No Cephalosporin Allergy: No Previous Colonoscopy: No Airway Assessment C-Spine Mobility Assessed: Yes TMJ Mobility Assessed: Yes Neurological Assessment Level of Consciousness: Awake, Alert, Appropriate and Follows Commands Hx Seizures: No Numbness or tingling in extremities: No Anesthesia Plan Anesthesia Risk discussed: Yes ASA Class: III Anesthesia Type: MAC Preoperative Comments Pre-Operative Comments: history of triple bypass
== END 2022-11-18 11:15 | disposition home or self-care (01) ==
PROVIDERS: PCP Student in an Organized Health Care Education/Training Program; Visit Provider Surgery
PROC: 0DJD8ZZ Inspection of Lower Intestinal Tract, Via Natural or Artificial Opening Endoscopic (ICD-10-PCS; CPT 45378; principal; 2022-11-18 10:30)
DX: Z91.199 Patient's noncompliance with other medical treatment and regimen due to unspecified reason (principal); K64.4 Residual hemorrhoidal skin tags
CPT/HCPCS: 45378; 82962

== ENCOUNTER 2022-12-20 13:57 | Emergency (ER) | payer BC, SELFPAY ==
[2022-12-20 14:10] VITALS: BP 125/78; PULSE 70; RESP 18; TEMP 36.8; O2SAT 98; BMI 36.6
[2022-12-20 14:33] VITALS: BP 125/78; PULSE 70; RESP 18; TEMP 36.8; O2SAT 98
--- NOTE | 2022-12-20 14:59 | EXP.UTC ---
Discharge Plan Disposition Patient Disposition: Home, Self-Care Condition: Good Prescriptions Prescriptions: New amoxicillin 875 mg tablet 875 mg PO BID Qty: 20 0RF methylprednisolone [Medrol (Shekhar)] 4 mg tablets,dose pack See Rx Instructions .Route .COMPLEX 6 Days Qty: 21 0RF Rx Instructions: taper pack; No Action albuterol sulfate [Ventolin HFA] 90 mcg/actuation HFA aerosol inhaler 2 puff IH Q4-6H PRN (Reason: asthma) Qty: 6.7 1RF albuterol sulfate 1.25 mg/3 mL solution for nebulization See Rx Instructions .Route .COMPLEX Qty: 75 0RF Rx Instructions: INHALE CONTENTS OF 1 VIAL VIA NEBULIZER FOUR TIMES A DAY NEEDED FOR SHORTNESS OF BREATH OR WHEEZING budesonide-formoterol [Symbicort] 160-4.5 mcg/actuation HFA aerosol inhaler 2 puff IH BID Qty: 10.2 2RF isosorbide mononitrate 60 mg tablet extended release 24 hr 60 mg PO DAILY nitroglycerin 0.4 mg tablet, sublingual 0.4 mg SL Q5-15M PRN (Reason: cp) Rx Instructions: do not exceed 3 doses per episode terbinafine HCl 250 mg tablet 250 mg PO DAILY aspirin 81 mg tablet,delayed release (DR/EC) See Rx Instructions .Route .COMPLEX Qty: 30 2RF Rx Instructions: TAKE ONE TABLET BY MOUTH ONCE A DAY FOR HEART HEALTH amlodipine 10 mg tablet 10 mg PO DAILY Qty: 30 1RF atorvastatin 80 mg tablet See Rx Instructions .Route HS Qty: 30 1RF Rx Instructions: TAKE ONE TABLET BY MOUTH AT BEDTIME at bedtime nightly; duloxetine 60 mg capsule,delayed release(DR/EC) See Rx Instructions .ROUTE .COMPLEX Qty: 30 2RF Dose Instruction: TAKE ONE CAPSULE BY MOUTH ONCE A DAY Rx Instructions: TAKE ONE CAPSULE BY MOUTH ONCE A DAY fluticasone propionate 50 mcg/actuation spray,suspension See Rx Instructions .ROUTE .COMPLEX Qty: 16 0RF Dose Instruction: USE 1 SPRAY IN EACH NOSTRIL ONCE A DAY Rx Instructions: USE 1 SPRAY IN EACH NOSTRIL ONCE A DAY metoprolol succinate 50 mg tablet extended release 24 hr See Rx Instructions .ROUTE .COMPLEX Rx Instructions: TAKE ONE TABLET BY MOUTH ONCE A DAY lisinopril 20 mg tablet See Rx Instructions .ROUTE .COMPLEX Rx Instructions: TAKE ONE TABLET BY MOUTH 2 TIMES A DAY valacyclovir 500 mg tablet See Rx Instructions .ROUTE .COMPLEX Rx Instructions: TAKE ONE TABLET BY MOUTH ONCE A DAY ergocalciferol (vitamin D2) 1,250 mcg (50,000 unit) capsule See Rx Instructions .ROUTE .COMPLEX Rx Instructions: TAKE ONE CAPSULE BY MOUTH EVERY WEEK semaglutide 0.25 mg or 0.5 mg(2 mg/1.5 mL) pen injector 0.5 mg SQ WEEKLY Clenpiq 10 mg-3.5 gram- 12 gram/175 mL solution 175 ml PO DAILY Rx Instructions: take first dose at 5-9PM evening before colonoscopy; 2nd dose the next day approximately 5 hrs before colonoscopy Referrals Follow up/Referrals: Alan Hutson MD [Primary Care Provider] - See instructions Activity Restrictions/Add. Instructions Additional Instructions/Restrictions: Take medication as prescribed Follow up with your Family Doctor if no improvement or any worsening of symptoms Return if needed Straight to ER if any life threatening symptoms Clinical Impressions Clinical Impression: Infection of right inner ear Instructions Patient Instructions: Amoxicillin, Methylprednisolone Discharge ED Provider: Davida Dickson [facility] General Stated complaint: Ears popping w/ pain, vertigo Mode of Arrival: Ambulatory Source of Information: Patient Limitations: No Limitations Time Seen by Provider: 12/20/22 14:45 Description of Symptoms (Recalled from Triage Doc. by RN): PATIENT C/O BILATERA EAR PAIN AND POPPING AND STATES HIS EQUILIBRIUM IS OFF SINCE YESTERDAY HEENT Symptoms (Recalled from RN notes): Yes Resp Symptoms (Recalled from RN notes): No Skin Symptoms (Recalled from RN notes): No MS Symptoms (Recalled from RN notes): No Functional Status (Recalled
== END 2022-12-20 15:12 | disposition home or self-care (01) ==
PROVIDERS: Emergency Provider Nurse Practitioner; PCP Emergency Medicine
DX: H83.01 Labyrinthitis, right ear (principal); R42 Dizziness and giddiness; J44.9 Chronic obstructive pulmonary disease, unspecified; I25.10 Atherosclerotic heart disease of native coronary artery without angina pectoris; I11.9 Hypertensive heart disease without heart failure; E78.5 Hyperlipidemia, unspecified; E66.9 Obesity, unspecified; F41.9 Anxiety disorder, unspecified; R40.0 Somnolence; F31.9 Bipolar disorder, unspecified; Z87.891 Personal history of nicotine dependence; Z68.39 Body mass index [BMI] 39.0-39.9, adult
CPT/HCPCS: 99212; 99214; G0463

== ENCOUNTER → 2022-12-22 14:58 | Outpatient (CLI) | payer BC, SELFPAY ==
[2022-12-22 17:52] LABS: Cholesterol 149 mg/dl (140-200); HDL Cholesterol 49 mg/dl (40-60); Triglycerides 115 mg/dl (30-150); VLDL Cholesterol 23 mg/dL (0-40)
[2022-12-22 17:55] LABS: Hemoglobin A1C 5.8 % (4.0-6.0)
[2022-12-22 17:58] LABS: C-Reactive Protein 2.3 mg/L (0-4)
[2022-12-22 18:03] LABS: Direct LDL Cholesterol 77.65 mg/dL (100-129)
[2022-12-22 18:16] LABS: Erythrocyte Sedimentation Rate 5 mm/hr (0-15)
== END ==
PROVIDERS: PCP Student in an Organized Health Care Education/Training Program; Visit Provider Student in an Organized Health Care Education/Training Program
DX: E11.9 Type 2 diabetes mellitus without complications (principal); E78.5 Hyperlipidemia, unspecified; M43.16 Spondylolisthesis, lumbar region; M54.50 Low back pain, unspecified
CPT/HCPCS: 80061; 83036; 85651; 86140

== ENCOUNTER → 2023-01-25 14:24 | Outpatient (CLI) | payer BC, SELFPAY ==
--- NOTE | 2023-01-25 14:27 | XR_ITS ---
FINAL REPORT CLINICAL HISTORY: R foot pain COMPARISON: 11/20/2017 FINDINGS: Right foot Three views were obtained. There is no acute fracture or dislocation. The joint spaces appear normal. No soft tissue abnormality is identified. An accessory navicular is identified, unchanged from previous. IMPRESSION: No acute process. Reviewed, Interpreted and Dictated by Ubaldo Snell MD Transcribed by Huong Puente Authenticated and [facility]
[2023-01-25 15:50] LABS: Alanine Aminotransferase 29 U/L (12-78); Albumin Level 4.4 g/dl (3.5-5.0); Albumin/Globulin Ratio 1.7 (1.1-1.8); Alkaline Phosphatase 84 U/L (38-126); Anion Gap 13.5 mEq/L (5-15); Aspartate Amino Transferase 30 U/L (17-59); Bilirubin,Indirect 0.3 mg/dL (0.0-0.9); Bilirubin,Total 0.3 mg/dl (0.2-1.3); Bilirubin,Unconjugated 0.4 mg/dL (0.0-1.1); Blood Urea Nitrogen 11 mg/dl (9-20); Calcium 9.2 mg/dl (8.4-10.2); Carbon Dioxide 31 mmol/L (22.0-30.0); Chloride 102 mmol/L (98-107); Estimated Glomerular Filt Rate 89 ml/min (>60); GFR (African American) 108 ML/MIN (>60); Globulin 2.6 g/dL (1.3-3.2); Glucose 84 mg/dl (74-100); Potassium 4.5 mmoL/L (3.5-5.1); Sodium 142 mmol/L (136-145)
== END ==
PROVIDERS: PCP Student in an Organized Health Care Education/Training Program; Visit Provider Podiatrist
DX: M79.671 Pain in right foot (principal); B07.0 Plantar wart; Q82.8 Other specified congenital malformations of skin
CPT/HCPCS: 36415; 73630; 80053; 80076

== ENCOUNTER → 2023-02-17 10:20 | Outpatient (CLI) | payer BC, SELFPAY ==
--- NOTE | 2023-02-17 | ECG_ITS ---
APPROVED REPORT Exam: Resting ECG HR:43 bpm ECG Measurements Heart Rate 43 AXES MA 154 P 69 QRSd 96 QRS 36 QT 429 T 39 QTc 377 Conclusion SINUS BRADYCARDIA BORDERLINE ECG UNCONFIRMED REPORT Electronically signed by : Zhen Nicholson MD 02/17/2023 15:53:18
--- NOTE | 2023-02-17 10:58 | XR_ITS ---
FINAL REPORT CLINICAL HISTORY: lower extremity pain/swelling COMPARISON: 06/30/2022 FINDINGS: TWO-VIEW CHEST The heart size is normal. The patient is status post median sternotomy. There is mild bibasilar scar atelectasis. There is no pneumothorax. IMPRESSION: Mild bibasilar scar or atelectasis. Reviewed, Interpreted and Dictated by Al Lala III, MD Transcribed by Huong Puente Authenticated and [facility]
[2023-02-17 11:15] LABS: Basophils # 0.1 K/mm3 (0-0.2); Basophils % 0.9 % (0.1-2.0); Eosinophils # 0.3 K/mm3 (0.0-0.4); Hematocrit 52.9 % (42.0-52.0); Hemoglobin 16.6 g/dL (14.1-18.0); Lymphocytes # 3.3 K/mm3 (0.7-4.5); Lymphocytes % 37.3 % (10-50); Mean Corpuscular HGB Conc 31.4 g/dL (31.8-35.4); Mean Corpuscular Hemoglobin 29.2 pg (27.0-31.2); Mean Corpuscular Volume 92.9 fl (80-94); Mean Platelet Volume 7.4 fl (7.4-10.4); Monocytes # 0.7 K/mm3 (0.1-1.0); Monocytes % 7.9 % (1.7-9.3); Neutrophils # 4.5 K/mm3 (1.8-7.8); Neutrophils % 50.9 % (37.0-80.0); Platelet Count 271 K/mm3 (142-424); Red Blood Count 5.69 M/mm3 (4.60-6.20); Red Cell Distribution Width 13.6 % (11.5-17.5); White Blood Count 8.9 K/mm3 (4.8-10.8)
[2023-02-17 12:03] LABS: Alanine Aminotransferase 27 U/L (12-78); Albumin Level 4.1 g/dl (3.5-5.0); Albumin/Globulin Ratio 1.7 (1.1-1.8); Alkaline Phosphatase 78 U/L (38-126); Anion Gap 10.7 mEq/L (5-15); Aspartate Amino Transferase 32 U/L (17-59); Bilirubin,Total 0.4 mg/dl (0.2-1.3); Blood Urea Nitrogen 9 mg/dl (9-20); Carbon Dioxide 29 mmol/L (22.0-30.0); Chloride 103 mmol/L (98-107); Estimated Glomerular Filt Rate 89 ml/min (>60); GFR (African American) 108 ML/MIN (>60); Globulin 2.4 g/dL (1.3-3.2); Glucose 91 mg/dl (74-100); Potassium 4.7 mmoL/L (3.5-5.1); Sodium 138 mmol/L (136-145); Total Protein,Serum 6.5 g/dl (6.3-8.2)
== END ==
PROVIDERS: PCP Emergency Medicine; Visit Provider Podiatrist
DX: M79.673 Pain in unspecified foot (principal)
CPT/HCPCS: 36415; 71046; 80053; 85025; 93005

== ENCOUNTER 2023-03-03 06:00 | Day surgery (SDC) | payer BC, SELFPAY ==
[2023-02-28 12:43] VITALS: BMI 33.2
--- NOTE | 2023-03-02 07:20 | SUR.PREOP ---
Charlotte Garcia SQL DATA ANALYST reviewed EKG and CXR and is ok to move forward with procedure.
[2023-03-03] VITALS (7 sets, daily range): BP systolic 99–106; BP diastolic 57–68; PULSE 61–74; RESP 16–18; TEMP 36.3–43; O2SAT 94–98
[2023-03-03 06:27] LABS: POC Glucose,Bedside 117 (70-110)
--- NOTE | 2023-03-03 06:58 | EXP.ANES.CKL ---
[facility] Disclaimer: The information contained in this section may have been updated after the patient was seen, as this information can be updated by other users. Medical History Allergic rhinitis, unspecified Angina pectoris Anxiety Asthma Asthma Bipolar disorder CAD (coronary artery disease) Chest pain Chronic pain in right foot COPD (chronic obstructive pulmonary disease) Daytime somnolence Depression Dyspnea Dyspnea on exertion Encounter for screening for malignant neoplasm of lung in patient with less than 30 pack year smoking history Family history of alpha 1 antitrypsin deficiency Hyperlipemia Hypertension Non-ST elevation [place] (NSTEMI) Obesity (BMI 30-39.9) Restless sleeper Screening for lung cancer Stopped smoking with greater than 20 pack year history Toe deformity, acquired Unstable angina pectoris Vitamin D deficiency (~10/04/17) Surgical History History of coronary artery bypass graft x 3 History of heart artery stent History of heart artery stent Hx of CABG Hx of foot surgery Family History Other Asthma COPD (chronic obstructive pulmonary disease) Coronary artery disease Diabetes Family history of myocardial infarction Family history of stroke Hyperlipidemia Hypertension Social History (Updated 02/28/23 @ 12:46 by Binta Barber RN) Smoking Status: Former smoker quit date: 12/14/08 alcohol intake: never substance use type: denies use current occupational status: employed Travel in the last 8 weeks: None household members: none housing: house lives independently: Yes marital status: single education level: college service: No snf: No caffeine: Yes special perri needs: No agree to transfusion: No do you feel safe at home: Yes victim of physical abuse: No victim of emotional abuse: No victim of sexual abuse: No would you like helpful sources: No [facility] Anesthesia Checklist Patient Identification Patient Identification: Arm Band and Family Structural Data Admitted From: Home Planned Operative Procedure/s: Right foot exostectomy Consent for Planned Operative Procedure(s) Verified: Yes Verified Documents: Surgical Consent and History and Physical NPO Status Verified Time NPO: 00:00 Additional verifications Patient : No Anesthesia Reactions: No Hx Blood Transfusions: No Blood Transfusion Reaction: No Cephalosporin Allergy: No Previous Colonoscopy: No Airway Assessment Mallampati Score:: Class II C-Spine Mobility Assessed: Yes TMJ Mobility Assessed: Yes Dentition: Edentulous Neurological Assessment Level of Consciousness: Awake, Alert, Appropriate and Follows Commands Hx Seizures: No Numbness or tingling in extremities: No Anesthesia Plan Anesthesia Risk discussed: Yes ASA Class: III Anesthesia Type: MAC w/Block Preoperative Comments Pre-Operative Comments: [place] X 2. Triple bypass. DM II. Hypertensive.
--- NOTE | 2023-03-03 08:29 | P.OP_ITS ---
Date of procedure: 03/03/23 Pre-op Diagnosis:: Skin scar right foot; First metatarsal exostosis/bunion/mild hallux valgus deformity right foot Post-op Diagnosis:: same Procedure performed:: Scar excision right medial foot; Silver-type bunionectomy right foot Surgeon:: Nadeem Rao DPM COMPUTER SYSTEMS SECURITY ADMINISTRATOR:: Elgin Jose Anesthesia: MAC Estimated blood loss (mL): 1 Operative findings:: expected findings; bone spurring at medial eminence first metatarsal head Operative note:: Patient was seen in the preop holding area and we reviewed the consent. The patient explained the procedure that he was anticipating to have which included excision of the scar tissue as well as bone spurring and remodeling the first metatarsal head of the right foot. The patient understands that there are basic risks involved with the surgery and could be slow healing and some pain involvement and inflammation. Patient wants to proceed with the surgery; and has a neighbor who will be staying with him throughout the day and overnight. Patient is wheeled to the operative room and left on the supine position on the operating room table. He already had a popliteal nerve block and moderate anesthesia care administered by the anesthesia department. At this point the foot is scrubbed prepped and draped in usual aseptic manner. Timeout is called in the room and confirmed by all present to the patient as well as the intended procedures and the correct surgical foot identified. Esmarch bandage used to extend patient's right foot and ankle and tourniquet 250 mmHg is inflated above the malleoli. There is scar tissue within and old incision on the dorsal medial aspect of the patient's first metatarsal through that same incision the scar was ellipsed in 2 converging semielliptical incisions and discarded. Freed of the soft tissues layers between the skin and subcutaneous tissues and the deep fascia. Immediately palpated a spur on the medial eminence of the first metatarsal. Incision was made in the capsular structures and to the first metatarsal periosteal tissues reflected around expose the medial eminence bone spurring and the dorsal aspect of the first metatarsal. McGlamry elevator was used to free up the first MPJ. Sagittal bone saw was used to resect prominent spurring medial eminence and dorsal spurring on the first metatarsal head. Irrigated with copious mayela of sterile normal saline. All rough edges appear to be removed and smoothed out and there is good range of motion of the great toe joint. Decision to closed wound in layers with 2-0 Vicryl then 3-0 Vicryl and then 3-0 nylon for the skin and a continuous suture technique. Then dressed the wound with Xeroform gauze 4 x 4's soft roll. Then released the tourniquet prompt hyperemic response noted noted all digits of the patient's surgical foot. Then outer dressing of an elastic bandage was applied from the foot to above the malleoli. He will be dispensed a surgery shoe and may bear weight as tolerated with minimal activity for the first week or 2. We will write him for prescription pain medication for a few days and then he is to switch over to anti-inflammatories and Tylenol. Tourniquet time (min): 24 Condition: stable Disposition: same day Complications:: negative
== END 2023-03-03 09:30 | disposition home or self-care (01) ==
PROVIDERS: PCP Emergency Medicine; Visit Provider Podiatrist
PROC: (CPT 28296; principal; 2023-03-03 07:30)
DX: M89.8X7 Other specified disorders of bone, ankle and foot (principal); I10 Essential (primary) hypertension; Z79.899 Other long term (current) drug therapy
CPT/HCPCS: 28296; 82962; 96374; J0690

== ENCOUNTER → 2023-04-11 08:44 | Outpatient (CLI) | payer BC, SELFPAY ==
[2023-04-11 19:23] LABS: Basophils % 0.7 % (0.1-2.0); Eosinophils # 0.3 K/mm3 (0.0-0.4); Eosinophils % 4.3 % (0.1-12.0); Hemoglobin 16.3 g/dL (14.1-18.0); Lymphocytes # 2.8 K/mm3 (0.7-4.5); Mean Corpuscular Hemoglobin 31.9 pg (27.0-31.2); Mean Corpuscular Volume 93.9 fl (80-94); Monocytes # 0.6 K/mm3 (0.1-1.0); Monocytes % 9.1 % (1.7-9.3); Neutrophils # 2.7 K/mm3 (1.8-7.8); Neutrophils % 41.9 % (37.0-80.0); Platelet Count 256 K/mm3 (142-424); Red Blood Count 5.12 M/mm3 (4.60-6.20); Red Cell Distribution Width 13.1 % (11.5-17.5); White Blood Count 6.3 K/mm3 (4.8-10.8)
[2023-04-11 19:36] LABS: Hemoglobin A1C 5.4 % (4.0-6.0)
[2023-04-11 19:37] LABS: Alanine Aminotransferase 31 U/L (12-78); Albumin Level 4.4 g/dl (3.5-5.0); Albumin/Globulin Ratio 1.8 (1.1-1.8); Alkaline Phosphatase 79 U/L (38-126); Anion Gap 17.6 mEq/L (5-15); Aspartate Amino Transferase 40 U/L (17-59); Bilirubin,Total 0.5 mg/dl (0.2-1.3); Blood Urea Nitrogen 9 mg/dl (9-20); Calcium 9.1 mg/dl (8.4-10.2); Carbon Dioxide 26 mmol/L (22.0-30.0); Chloride 102 mmol/L (98-107); Chol/HDL Ratio 3.4 (1-3.5); Cholesterol 139 mg/dl (140-200); Estimated Glomerular Filt Rate 102 ml/min (>60); GFR (African American) 124 ML/MIN (>60); Globulin 2.5 g/dL (1.3-3.2); Glucose 117 mg/dl (74-100); HDL Cholesterol 41 mg/dl (40-60); Potassium 4.6 mmoL/L (3.5-5.1); Sodium 141 mmol/L (136-145); Total Protein,Serum 6.9 g/dl (6.3-8.2); Triglycerides 140 mg/dl (30-150); VLDL Cholesterol 28 mg/dL (0-40)
[2023-04-11 19:48] LABS: Direct LDL Cholesterol 75.79 mg/dL (100-129)
[2023-04-13 08:20] LABS: HIV Screen 4th Generation wRfx Non Reactive (Non Reactive)
[2023-04-13 11:13] LABS: Rapid Plasma Reagin Ab Titer Non Reactive titer (NonRea<1:1)
[2023-04-17 09:30] LABS: HSV 1 IgG, Type Spec 8.23
== END ==
PROVIDERS: PCP Student in an Organized Health Care Education/Training Program; Visit Provider Student in an Organized Health Care Education/Training Program
DX: E78.5 Hyperlipidemia, unspecified (principal); F41.9 Anxiety disorder, unspecified; R73.09 Other abnormal glucose; Z71.1 Person with feared health complaint in whom no diagnosis is made
CPT/HCPCS: 80053; 80061; 83036; 85025; 86593; 86695; 86703; 86790; G0432

== ENCOUNTER 2023-08-22 07:48 | Outpatient (CLI) | payer BC, SELFPAY ==
--- NOTE | 2023-08-22 07:48 | US_ITS ---
FINAL REPORT CLINICAL HISTORY: RUQ pain COMPARISON: None FINDINGS: Sonographic images of the right upper quadrant were obtained. The pancreas is partially obscured.The liver has an unremarkable appearance. There is borderline gallbladder wall thickening measuring 4 mm. There is no evidence of biliary ductal dilatation.The common duct measures 5 mm. Limited images of the right kidney are unremarkable. IMPRESSION: Borderline gallbladder wall thickening. Reviewed, Interpreted and Dictated by Al Lala III, MD Transcribed by Binta Lomax Authenticated and [facility]
== END 2023-08-22 23:59 ==
LOC: RAD 07:48
PROVIDERS: PCP Student in an Organized Health Care Education/Training Program; Visit Provider Student in an Organized Health Care Education/Training Program
DX: R10.11 Right upper quadrant pain (principal)
CPT/HCPCS: 76705

== ENCOUNTER 2023-10-05 17:26 | Emergency (ER) | payer BC, SELFPAY ==
[2023-10-05 17:40] VITALS: BP 137/78; PULSE 83; RESP 21; TEMP 36.9; O2SAT 96; BMI 34.9
--- NOTE | 2023-10-05 18:00 | EXP.UTC ---
Discharge Plan Disposition Patient Disposition: Home, Self-Care Condition: Good Prescriptions Prescriptions: New cefdinir 300 mg capsule 300 mg PO BID Qty: 20 0RF guaifenesin [Mucinex] 600 mg tablet extended release 12hr 1,200 mg PO BID PRN (Reason: cough) Qty: 20 0RF No Action atorvastatin 80 mg tablet 80 mg PO DAILY metoprolol succinate 50 mg tablet extended release 24 hr 50 mg PO DAILY lisinopril 20 mg tablet 20 mg PO DAILY valacyclovir 500 mg tablet 500 mg PO DAILY amlodipine 10 mg tablet 10 mg PO DAILY duloxetine 60 mg capsule,delayed release(DR/EC) 60 mg PO DAILY Ozempic 1 mg/dose (4 mg/3 mL) pen injector 1 mg SQ WEEKLY Referrals Follow up/Referrals: Desire Pack PA [Primary Care Provider] - See instructions Activity Restrictions/Add. Instructions Additional Instructions/Restrictions: *Monitor Temp, Over the counter Motrin or Tylenol as directed/as needed Tylenol every 4 hours and Motrin every 6 hours (as long as your family doctor has told you that you can take it) for fever or pain. and straight to ER if unable to lower temp less than 101.0 after medication given *Warm salt water gargles may help to soothe the throat *Throat Lozenges? *Warm fluids like tea with honey may help to soothe the throat? *Sleep elevated *Humidifier/Vaporizer Take medication as prescribed Follow up IMMEDIATELY for new or worsening symptoms or no Noticeable improvement over the next 48-72 hours. 911 for difficulty breathing or swallowing Clinical Impressions Clinical Impression: Sinusitis Qualifiers: Sinusitis location: unspecified location Chronicity: unspecified Qualified Code(s): J32.9 - Chronic sinusitis, unspecified Stand Alone Forms Stand Alone Forms: Work/School Release Instructions Patient Instructions: DI for Sinusitis, Cefdinir Discharge ED Provider: Davida Dickson [facility] [place] General Stated complaint: Cough,congestion, Mode of Arrival: Ambulatory Source of Information: Patient Limitations: No Limitations Time Seen by Provider: 10/05/23 18:00 Description of Symptoms (Recalled from Triage Doc. by RN): PATIENT C/O RUNNY NOSE, COUGHING UP GREEN PHLEGM, AND FEVER SINCE YESTERDAY EVENING HEENT Symptoms (Recalled from RN notes): Yes Resp Symptoms (Recalled from RN notes): Yes Skin Symptoms (Recalled from RN notes): No MS Symptoms (Recalled from RN notes): No Functional Status (Recalled from RN notes): WNL History of Present Illness Provider Complaint: Patient states has been having sinus pain and pressure, and yesterday started with pressure behind his eyes, scratchy throat drainage in the back of his throat, and at times coughing up mucous and fever States today he wasnt feeling any better so the came in to get checked Related Data Home Medications Medication Instructions Recorded Confirmed amlodipine 10 mg tablet 10 mg PO DAILY 10/05/23 10/05/23 atorvastatin 80 mg tablet 80 mg PO DAILY 10/05/23 10/05/23 duloxetine 60 mg capsule,delayed 60 mg PO DAILY 10/05/23 10/05/23 release lisinopril 20 mg tablet 20 mg PO DAILY 10/05/23 10/05/23 metoprolol succinate 50 mg 50 mg PO DAILY 10/05/23 10/05/23 tablet,extended release 24 hr semaglutide 1 mg/dose (4 mg/3 mL) 1 mg SQ WEEKLY 10/05/23 10/05/23 subcutaneous pen injector (Ozempic) valacyclovir 500 mg tablet 500 mg PO DAILY 10/05/23 10/05/23 Previous Rx's Medication Instructions Recorded cefdinir 300 mg capsule 300 mg PO BID #20 caps 10/05/23 guaifenesin 600 mg tablet, 1,200 mg (2 x 600 mg) PO BID PRN 10/05/23 extended release 12 hr (Mucinex) cough #20 tabs Allergies Allergy/AdvReac Type Severity Reaction Status Date / Time buspirone Allergy Mild Rash Verified 08/31/23 14:28 ciprofloxacin [From Cipro] Allergy Verified 08/31/23 14:28 ketorolac [From Toradol] AdvReac Intermediate Elevated Verified 08/31/23 14:28 blood pressure Worker's Comp Is this a Worker's Comp case?: No [facility] Disclaimer: The information contained in this section may have been updated after the patient was seen, as this information can be updated by other users. Medical History Screening for lung cancer Allergic rhinitis, unspecified Encounter for screening for malignant neoplasm of lung in patient with less than 30 pack year smoking history Family history of alpha 1 antitrypsin deficiency Asthma Dyspnea on exertion Stopped smoking with greater than 20 pack year history COPD (chronic obstructive pulmonary disease) Asthma Restless sleeper Daytime somnolence Non-ST elevation [place] (NSTEMI) Obesity (BMI 30-39.9) Unstable angina pectoris Angina pectoris Dyspnea Chest pain CAD (coronary artery disease) Bipolar disorder Anxiety Chronic pain in right foot Vitamin D deficiency (~10/04/17) Toe deformity, acquired Hypertension Depression Hyperlipemia Surgical History History of heart artery stent History of coronary artery bypass graft x 3 Hx of foot surgery right History of heart artery stent Hx of CABG Family History Other Asthma COPD (chronic obstructive pulmonary disease) Coronary artery disease Diabetes Family history of myocardial infarction Family history of stroke Hyperlipidemia Hypertension Social History Smoking Status: Former smoker tobacco type: cigarettes packs per day: 1 alcohol intake: never substance use type: denies use current occupational status: employed Travel in the last 8 weeks: None household members: none housing: house lives independently: Yes marital status: single education level: college service: No mcc: No caffeine: Yes special perri needs: No agree to transfusion: No do you feel safe at home: Yes victim of physical abuse: No victim of emotional abuse: No victim of sexual abuse: No would you like helpful sources: No ROS Obtained: Yes All systems reviewed & no additional complaints except as documented and Yes Systems reviewed as appropriate & no additional complaints except as documented Constitutional Constitutional: Reports system reviewed and no additional complaints, except as documented and Reports as per HPI Eyes Eyes: Reports system reviewed and no additional complaints, except as documented and Reports as per HPI ENT Ears, Nose, Mouth, and Throat: Reports system reviewed and no additional complaints, except as documented, Reports as per HPI, Reports sinus pain, Reports sinus pressure and Reports sore throat Cardiovascular Cardiovascular: Reports system reviewed and no additional complaints, except as documented and Reports as per HPI Respiratory Respiratory: Reports system reviewed and no additional complaints, except as documented, Reports as per HPI, Denies shortness of breath, Reports chest congestion, Reports cough and Denies wheezing Gastrointestinal Gastrointestingal: Reports system reviewed and no additional complaints, except as documented and as per HPI Allergic/Immunologic Allergic/Immunologic: Denies wheezing Physical Exam General General appearance: alert and in no apparent distress ENT ENT exam: Present mucous membranes moist Expanded ENT Exam Nose exam: Present sinus tenderness Throat exam: Present other (PND noted) Respiratory Respiratory exam: Present normal lung sounds bilaterally; Absent respiratory distress or wheezes Cardiovascular Cardiovascular exam: Present regular rate, normal rhythm and normal heart sounds Neurological Exam Neurological exam: Present alert, oriented X3 and normal gait Medical Decision Making Lino Inquiry Pt receiving controlled substance: No Lino was queried for this patient: No Vital Signs: 10/05/23 17:40 Temperature 98.4 F Temperature Source Oral Pulse Rate [Left Brachial] 83 Respiratory Rate 21 Blood Pressure [Left Arm] 137/78 Blood Pressure Mean [Left Arm] 97 Blood Pressure Source [Left Arm] Automatic Cuff Blood Pressure Position [Left Arm] Sitting 02 Sat by Pulse Oximetry 96 Oxygen Delivery Method Room Air Medical Decision Narrative: Patient states that he is a diabetic but has taken Solumedrol in the past without complications with his diabetes and his FSBS has been running in the 70-80's
[2023-10-05] MEDS: METHYLPREDNISOLONE SOD SUCC 125MG VIAL 125 MG IM (18:18)
[2023-10-05 18:19] VITALS: BP 137/78; PULSE 83; RESP 21; TEMP 36.9; O2SAT 96
== END 2023-10-05 18:40 | disposition home or self-care (01) ==
PROVIDERS: Emergency Provider Nurse Practitioner; PCP Student in an Organized Health Care Education/Training Program
DX: J01.90 Acute sinusitis, unspecified (principal); R05.9 Cough, unspecified; R07.0 Pain in throat; R09.81 Nasal congestion
CPT/HCPCS: 87635; 96372; 99212; 99214; G0463

== ENCOUNTER 2023-10-19 10:11 | Outpatient (CLI) | payer BC, SELFPAY ==
[2023-10-19 20:47] LABS: Hemoglobin A1C 6.3 % (4.0-6.0)
== END 2023-10-19 23:59 | disposition home or self-care (01) ==
LOC: LAB.DROPOF 10-20 10:12
PROVIDERS: PCP Student in an Organized Health Care Education/Training Program; Visit Provider Student in an Organized Health Care Education/Training Program
DX: E66.9 Obesity, unspecified (principal); Z68.34 Body mass index [BMI] 34.0-34.9, adult; R73.09 Other abnormal glucose
CPT/HCPCS: 83036

== ENCOUNTER 2024-02-13 10:49 | Outpatient (CLI) | payer BC, SELFPAY | END 2024-02-13 23:59 | disposition home or self-care (01) | LOC: LAB.DROPOF 02-14 10:57 | PROVIDERS: PCP Student in an Organized Health Care Education/Training Program; Visit Provider Student in an Organized Health Care Education/Training Program | DX: J32.9 Chronic sinusitis, unspecified (principal) | CPT/HCPCS: 87635 ==

== ENCOUNTER 2024-04-30 14:47 | Emergency (ER) | payer BC, SELFPAY ==
[2024-04-30 15:14] VITALS: BP 146/77; PULSE 60; RESP 20; TEMP 36.6; O2SAT 97; BMI 34.9
--- NOTE | 2024-04-30 15:33 | EXP.UTC ---
Discharge Plan Disposition Patient Disposition: Home, Self-Care Condition: Good Prescriptions Prescriptions: No Action metformin 500 mg tablet extended release 24 hr 500 mg PO BID Qty: 180 0RF valacyclovir 500 mg tablet 500 mg PO DAILY Qty: 90 0RF metoprolol succinate 50 mg tablet extended release 24 hr 50 mg PO DAILY Qty: 90 0RF amlodipine 10 mg tablet 10 mg PO DAILY Qty: 90 0RF lisinopril 20 mg tablet 40 mg PO DAILY Qty: 180 0RF duloxetine 60 mg capsule,delayed release(DR/EC) 60 mg PO DAILY Qty: 90 0RF atorvastatin 80 mg tablet 80 mg PO DAILY Qty: 90 0RF aspirin 81 mg Capsule 81 mg PO DAILY Referrals Follow up/Referrals: Desire Pack PA [Primary Care Provider] - See instructions Activity Restrictions/Add. Instructions Additional Instructions/Restrictions: The steriod shot you was given should help with your sciatica pain Make sure to continue to take OTC Motrin as directed for pain if needed and if you need something else Tylenol if you can take these medications Warm compresses may help Soaking in warm tub may help Follow up with your Family Doctor if needed and to discuss injections as you was requesting that could not be done here, they can refer you to someone that may be able to help Straight to ER if any life threatening symptoms Clinical Impressions Clinical Impression: Sciatica, left side Instructions Patient Instructions: Sciatica, DI for Sciatica Print Language Print Language: Indonesian Discharge ED Provider: Davida Dicks[place] [facility] [place] General Stated complaint: Left hip pain Mode of Arrival: Ambulatory Source of Information: Patient Time Seen by Provider: 04/30/24 15:33 Description of Symptoms (Recalled from Triage Doc. by RN): LEFT HIP/BUTTOCKS PAIN HEENT Symptoms (Recalled from RN notes): No Resp Symptoms (Recalled from RN notes): No Skin Symptoms (Recalled from RN notes): No MS Symptoms (Recalled from RN notes): Yes Functional Status (Recalled from RN notes): WNL History of Present Illness Provider Complaint: Pt states that he is having pain in his left buttock area that goes around into his hip/upper leg Denies known injury Reports hx of bursitis and feels a little like that Denies falling denies fever Related Data Home Medications ?Medication ?Instructions ?Recorded ?Confirmed aspirin 81 mg capsule 81 mg PO DAILY 04/30/24 04/30/24 Previous Rx's ?Medication ?Instructions ?Recorded metformin 500 mg tablet,extended 500 mg PO BID #180 tabs 11/29/23 release 24 hr amlodipine 10 mg tablet 10 mg PO DAILY hypertension #90 03/12/24 tabs atorvastatin 80 mg tablet 80 mg PO DAILY hyperlipidemia #90 03/12/24 tabs duloxetine 60 mg capsule,delayed 60 mg PO DAILY mood disorder #90 03/12/24 release caps lisinopril 20 mg tablet 40 mg (2 x 20 mg) PO DAILY 03/12/24 hypertension #180 tabs metoprolol succinate 50 mg 50 mg PO DAILY #90 tabs 03/12/24 tablet,extended release 24 hr valacyclovir 500 mg tablet 500 mg PO DAILY #90 tabs 03/12/24 Allergies Allergy/AdvReac Type Severity Reaction Status Date / Time buspirone Allergy Mild Rash Verified 02/13/24 10:15 ciprofloxacin (From Cipro) Allergy Verified 02/13/24 10:15 ketorolac (From Toradol) AdvReac Intermediate Elevated Verified 02/13/24 10:15 blood pressure Worker's Comp Is this a Worker's Comp case?: No [facility] Disclaimer: The information contained in this section may have been updated after the patient was seen, as this information can be updated by other users. Medical History Screening for lung cancer Allergic rhinitis, unspecified Encounter for screening for malignant neoplasm of lung in patient with less than 30 pack year smoking history Family history of alpha 1 antitrypsin deficiency Asthma Dyspnea on exertion Stopped smoking with greater than 20 pack year history COPD (chronic obstructive pulmonary disease) Asthma Restless sleeper Daytime somnolence Non-ST elevation [place] (NSTEMI) Obesity (BMI 30-39.9) Unstable angina pectoris Angina pectoris Dyspnea Chest pain CAD (coronary artery disease) Bipolar disorder Anxiety Chronic pain in right foot Vitamin D deficiency (~10/04/17) Toe deformity, acquired Hypertension Depression Hyperlipemia Surgical History History of heart artery stent History of coronary artery bypass graft x 3 Hx of foot surgery right History of heart artery stent Hx of CABG Family History Other Asthma COPD (chronic obstructive pulmonary disease) Coronary artery disease Diabetes Family history of myocardial infarction Family history of stroke Hyperlipidemia Hypertension Social History Smoking Status: Former smoker tobacco type: cigarettes packs per day: 1 alcohol intake: never substance use type: denies use current occupational status: employed household members: none housing: house lives independently: Yes marital status: single education level: college service: No correction: No caffeine: Yes special perri needs: No agree to transfusion: No do you feel safe at home: Yes victim of physical abuse: No victim of emotional abuse: No victim of sexual abuse: No would you like helpful sources: No ROS Obtained: Yes All systems reviewed & no additional complaints except as documented and Yes Systems reviewed as appropriate & no additional complaints except as documented Constitutional Constitutional: Reports system reviewed and no additional complaints, except as documented, Reports as per HPI and Denies fever(s) ENT Ears, Nose, Mouth, and Throat: Reports system reviewed and no additional complaints, except as documented and Reports as per HPI Cardiovascular Cardiovascular: Reports system reviewed and no additional complaints, except as documented and Reports as per HPI Respiratory Respiratory: Reports system reviewed and no additional complaints, except as documented and Reports as per HPI Gastrointestinal Gastrointestingal: Reports system reviewed and no additional complaints, except as documented and as per HPI Musculoskeletal Musculoskeletal: Reports system reviewed and no additional complaints, except as documented, Reports as per HPI and Reports other Comments: Reports pain in left buttock area that goes into left hip denies known injury hx of lower back pain Physical Exam General General appearance: alert and in no apparent distress ENT ENT exam: Present normal exam, normal oropharynx, mucous membranes moist and TM's normal bilaterally Respiratory Respiratory exam: Present normal lung sounds bilaterally; Absent respiratory distress or wheezes Cardiovascular Cardiovascular exam: Present regular rate, normal rhythm and normal heart sounds Abdominal Exam Abdominal exam: Present soft and normal bowel sounds; Absent distention or tenderness Back Exam Back exam: Present tenderness and sciatic notch tenderness (L) Back 1 view image: 1. reports achy like pain in his left buttock area that goes into left hip, has left sciatic notch tenderness Denies known injury Denies loss of control of bowel or bladder Neurological Exam Neurological exam: Present alert, oriented X3 and normal gait Medical Decision Making Medical Records Screening: Per USPSTF and CDC recommendations, given the prevalence of disease in our region, it is our hospital?s policy to screen for HIV and viral Hepatitis for all patients aged 18 and over and those with ongoing risk factors. Lino Inquiry Pt receiving controlled substance: No Lino was queried for this patient: No Vital Signs: 04/30/24 15:14 Temperature 97.9 F Temperature Source Oral Pulse Rate [Left Radial] 60 Respiratory Rate 20 Blood Pressure [Left Arm] 146/77 H Blood Pressure Mean [Left Arm] 100 02 Sat by Pulse Oximetry 97 Medical Decision Narrative: Discussed xray and patient declined at this time Suspect sciatica due to symptoms and left sciatic notch tenderness will give injection of solumedrol patient states has taken it in the past and tolerated it well without reaction or complications
[2024-04-30] MEDS: METHYLPREDNISOLONE SOD SUCC 125MG VIAL 125 MG IM (15:48)
[2024-04-30 16:01] VITALS: BP 146/77; PULSE 60; RESP 20; TEMP 36.6
== END 2024-04-30 16:05 | disposition home or self-care (01) ==
PROVIDERS: Emergency Provider Nurse Practitioner; PCP Student in an Organized Health Care Education/Training Program
DX: M54.32 Sciatica, left side (principal)
CPT/HCPCS: 96372; 99213; G0381; J2919

== ENCOUNTER 2024-05-03 16:10 | Emergency (ER) | payer BC, SELFPAY ==
--- NOTE | 2024-05-03 17:05 | ED_ITS ---
Discharge Plan Disposition Patient Disposition: Home, Self-Care Condition: Good Prescriptions Prescriptions: New prednisone 20 mg tablet 20 mg PO BID 4 Days Qty: 8 0RF No Action cyclobenzaprine 10 mg tablet 10 mg PO BID PRN (Reason: Muscle Spasm) Qty: 20 0RF indomethacin 25 mg capsule 25 mg PO TID 7 Days Qty: 21 0RF Rx Instructions: administer with food or milk metformin 500 mg tablet extended release 24 hr 500 mg PO BID Qty: 180 0RF valacyclovir 500 mg tablet 500 mg PO DAILY Qty: 90 0RF metoprolol succinate 50 mg tablet extended release 24 hr 50 mg PO DAILY Qty: 90 0RF amlodipine 10 mg tablet 10 mg PO DAILY Qty: 90 0RF lisinopril 20 mg tablet 40 mg PO DAILY Qty: 180 0RF duloxetine 60 mg capsule,delayed release(DR/EC) 60 mg PO DAILY Qty: 90 0RF atorvastatin 80 mg tablet 80 mg PO DAILY Qty: 90 0RF aspirin 81 mg Capsule 81 mg PO DAILY Referrals Follow up/Referrals: Desire Pack PA [Primary Care Provider] - See instructions Activity Restrictions/Add. Instructions Additional Instructions/Restrictions: Go home and rest. It would be best if you rested tomorrow too. No heavy lifting & No twisting for the next few days. Take the oral medications as directed. The muscle relaxer (cyclobenzaprine--Flexeril) will make you drowsy, so don't drive or operate heavy machinery after taking it. Don't start the oral steroids (prednisone) until tomorrow, since you had the shots in here today. The steroids will cause your blood sugar to run higher, so make sure you follow your prescribed diabetic diet closely and to check your blood sugars frequently. Follow up with your regular doctor. GO TO THE ER FOR ANY WORSENING SYMPTOMS OR CONCERN, ESPECIALLY BOWEL OR BLADDER ISSUES, SADDLE AREA NUMBNESS, FEVER, ETC Clinical Impressions Clinical Impression: Low back pain, Left hip pain, Sciatica Stand Alone Forms Stand Alone Forms: Work/School Release Instructions Patient Instructions: Cyclobenzaprine, Methylprednisolone Injection, Dexamethasone Injection Print Language Print Language: Slovak Discharge ED Provider: Mario Burdick [facility] General Stated complaint: LT hip pain Time Seen by Provider: 05/03/24 17:05 Related Data Home Medications ?Medication ?Instructions ?Recorded ?Confirmed aspirin 81 mg capsule 81 mg PO DAILY 04/30/24 05/13/24 Previous Rx's ?Medication ?Instructions ?Recorded metformin 500 mg tablet,extended 500 mg PO BID #180 tabs 11/29/23 release 24 hr amlodipine 10 mg tablet 10 mg PO DAILY hypertension #90 03/12/24 tabs atorvastatin 80 mg tablet 80 mg PO DAILY hyperlipidemia #90 03/12/24 tabs duloxetine 60 mg capsule,delayed 60 mg PO DAILY mood disorder #90 03/12/24 release caps lisinopril 20 mg tablet 40 mg (2 x 20 mg) PO DAILY 03/12/24 hypertension #180 tabs metoprolol succinate 50 mg 50 mg PO DAILY #90 tabs 03/12/24 tablet,extended release 24 hr valacyclovir 500 mg tablet 500 mg PO DAILY #90 tabs 03/12/24 prednisone 20 mg tablet 20 mg PO BID 4 days #8 tabs 05/03/24 cyclobenzaprine 10 mg tablet 10 mg PO BID PRN Muscle Spasm #20 05/13/24 tabs indomethacin 25 mg capsule 25 mg PO TID 7 days #21 caps 05/13/24 Allergies Allergy/AdvReac Type Severity Reaction Status Date / Time buspirone Allergy Mild Rash Verified 05/13/24 13:01 ciprofloxacin (From Cipro) Allergy Verified 05/13/24 13:01 ketorolac (From Toradol) AdvReac Intermediate Elevated Verified 05/13/24 13:01 blood pressure [facility] [place] Disclaimer: The information contained in this section may have been updated after the p atient was seen, as this information can be updated by other users. Medical History Screening for lung cancer Allergic rhinitis, unspecified Encounter for screening for malignant neoplasm of lung in patient with less than 30 pack year smoking history Family history of alpha 1 antitrypsin deficiency Asthma Dyspnea on exertion Stopped smoking with greater than 20 pack year history COPD (chronic obstructive pulmonary disease) Asthma Restless sleeper Daytime somnolence Non-ST elevation [place] (NSTEMI) Obesity (BMI 30-39.9) Unstable angina pectoris Angina pectoris Dyspnea Chest pain CAD (coronary artery disease) Bipolar disorder Anxiety Chronic pain in right foot Vitamin D deficiency (~10/04/17) Toe deformity, acquired Hypertension Depression Hyperlipemia Surgical History History of heart artery stent History of coronary artery bypass graft x 3 Hx of foot surgery right History of heart artery stent Hx of CABG Family History Other Asthma COPD (chronic obstructive pulmonary disease) Coronary artery disease Diabetes Family history of myocardial infarction Family history of stroke Hyperlipidemia Hypertension Social History Smoking Status: Former smoker tobacco type: cigarettes packs per day: 1 alcohol intake: never substance use type: denies use current occupational status: employed Travel in the last 8 weeks: None household members: none housing: house lives independently: Yes marital status: single education level: college service: No detention: No caffeine: Yes special perri needs: No agree to transfusion: No do you feel safe at home: Yes victim of physical abuse: No victim of emotional abuse: No victim of sexual abuse: No would you like helpful sources: No ROS Obtained: Yes All systems reviewed & no additional complaints except as documented Constitutional Constitutional: Denies chills and Denies fever(s) Eyes Eyes: Denies eye discharge ENT Ears, Nose, Mouth, and Throat: Denies dizziness, Denies otalgia and Denies sore throat Cardiovascular Cardiovascular: Denies chest pain Respiratory Respiratory: Denies shortness of breath, Denies chest congestion, Denies cough, Denies stridor and Denies wheezing Gastrointestinal Gastrointestingal: Denies nausea or vomiting Musculoskeletal Musculoskeletal: Reports system reviewed and no additional complaints, except as documented and Denies arthralgias Integumentary/Breasts Skin/Breast: Denies rash Neurologic Neurologic: Denies dizziness and Denies paresthesias Allergic/Immunologic Allergic/Immunologic: Denies wheezing Physical Exam General General appearance: alert and in no apparent distress Head Head exam: atraumatic, normocephalic and normal inspection Eye Eye exam: Present normal appearance, PERRL and EOMI ENT ENT exam: Present normal exam, normal oropharynx, mucous membranes moist, TM's normal bilaterally and normal external ear exam Neck Neck exam: Present normal inspection, full ROM and trachea midline; Absent meningismus or lymphadenopathy Chest Chest inspection: Present normal inspection and symmetric chest wall rise; Absent tenderness Respiratory Respiratory exam: Present normal lung sounds bilaterally; Absent respiratory distress Cardiovascular Cardiovascular exam: Present regular rate and normal rhythm; Absent JVD Abdominal Exam Abdominal exam: Present soft and normal bowel sounds; Absent distention, tenderness or guarding Extremities Exam Extremities exam: Present normal inspection, full ROM and normal capillary refill; Absent calf tenderness Back Exam Back exam: Present normal inspection; Absent tenderness Neurological Exam Neurological exam: Present alert and oriented X3 Psychiatric Psychiatric exam: Present normal affect and normal mood Skin Skin exam: Present warm, dry, intact and normal color Lymphatic Lymphatic Findings: no adenopathy Medical Decision Making Medical Records Medical records reviewed: No I reviewed the patient's medical records. Screening: Per USPSTF and CDC recommendations, given the prevalence of disease in our region, it is our hospital?s policy to screen for HIV and viral Hepatitis for all patients aged 18 and over and those with ongoing risk factors. Lino Inquiry Pt receiving controlled substance: No
[2024-05-03 17:11] VITALS: BP 121/72; PULSE 83; RESP 20; TEMP 37.1; O2SAT 98; BMI 35.4
--- NOTE | 2024-05-03 17:18 | XR_ITS ---
PROCEDURE INFORMATION: Exam: XR Lumbosacral Spine Exam date and time: 05/03/2024 5:26 PM Age: 53 years old Clinical indication: Low back pain; Additional info: Low back pain, left hip pain TECHNIQUE: Imaging protocol: Radiologic exam of the lumbosacral spine. Views: 2 or 3 views. COMPARISON: MR LUMBAR SPINE WO CON 12/13/2021 4:20 PM FINDINGS: Bones/joints: There is slight anterolisthesis of L4 on L5. There is mild lower lumbar degenerative disease with facet arthropathy and intervertebral disc space narrowing. No acute fracture or dislocation is identified. Soft tissues: Unremarkable. Vasculature: Scattered atherosclerotic disease of the arterial vasculature. Other findings: Prevertebral and paravertebral soft tissues appear unremarkable. IMPRESSION: Degenerative disease without acute injury identified.
--- NOTE | 2024-05-03 17:18 | XR_ITS ---
PROCEDURE INFORMATION: Exam: XR Left Hip Exam date and time: 05/03/2024 5:24 PM Age: 53 years old Clinical indication: Hip pain; Left hip; Additional info: Low back pain, left hip pain TECHNIQUE: Imaging protocol: Radiologic exam of the left hip. Views: 2 or 3 views hip with pelvis when performed. COMPARISON: MR LUMBAR SPINE WO CON 12/13/2021 4:20 PM FINDINGS: Bones/joints: Unremarkable. No acute fracture. Soft tissues: Unremarkable. IMPRESSION: No acute findings.
[2024-05-03] MEDS: DEXAMETHASONE 4MG/ML 1ML VIAL 8 MG IM (17:56)
[2024-05-03 18:01] VITALS: BP 121/72; PULSE 83; RESP 20; TEMP 37.1
== END 2024-05-03 18:08 | disposition home or self-care (01) ==
PROVIDERS: Emergency Provider Nurse Practitioner Family; PCP Student in an Organized Health Care Education/Training Program
DX: M54.50 Low back pain, unspecified (principal); M54.32 Sciatica, left side
CPT/HCPCS: 72100; 73502; 96372; 99213; G0381; J1100

== ENCOUNTER 2024-05-13 13:46 | Outpatient (CLI) | payer BC, SELFPAY ==
[2024-05-13 18:15] LABS: Basophils # 0.1 K/mm3 (0-0.2); Basophils % 1.2 % (0.1-2.0); Eosinophils # 0.2 K/mm3 (0.0-0.4); Hemoglobin 16.8 g/dL (14.1-18.0); Lymphocytes % 38.6 % (10-50); Mean Corpuscular Hemoglobin 30.2 pg (27.0-31.2); Mean Corpuscular Volume 91.6 fl (80-94); Mean Platelet Volume 7.4 fl (7.4-10.4); Monocytes # 0.7 K/mm3 (0.1-1.0); Monocytes % 6.4 % (1.7-9.3); Neutrophils # 5.3 K/mm3 (1.8-7.8); Neutrophils % 51.9 % (37.0-80.0); Platelet Count 259 K/mm3 (142-424); Red Blood Count 5.56 M/mm3 (4.60-6.20); Red Cell Distribution Width 13.6 % (11.5-17.5); White Blood Count 10.3 K/mm3 (4.8-10.8)
[2024-05-13 19:06] LABS: Alanine Aminotransferase 28 U/L (12-78); Albumin/Globulin Ratio 1.8 (1.1-1.8); Alkaline Phosphatase 86 U/L (38-126); Anion Gap 12.6 mEq/L (5-15); Aspartate Amino Transferase 27 U/L (17-59); Bilirubin,Total 0.4 mg/dl (0.2-1.3); Blood Urea Nitrogen 14 mg/dl (9-20); Calcium 8.8 mg/dl (8.4-10.2); Carbon Dioxide 28 mmol/L (22.0-30.0); Chloride 103 mmol/L (98-107); Chol/HDL Ratio 2.8 (1-3.5); Cholesterol 145 mg/dl (140-200); Estimated Glomerular Filt Rate 89 ml/min (>60); GFR (African American) 108 ML/MIN (>60); Globulin 2.2 g/dL (1.3-3.2); Glucose 153 mg/dl (74-100); HDL Cholesterol 52 mg/dl (40-60); Potassium 4.6 mmoL/L (3.5-5.1); Sodium 139 mmol/L (136-145); Total Protein,Serum 6.2 g/dl (6.3-8.2); Triglycerides 183 mg/dl (30-150); VLDL Cholesterol 37 mg/dL (0-40)
[2024-05-13 19:18] LABS: Direct LDL Cholesterol 69.59 mg/dL (100-129)
[2024-05-13 19:49] LABS: 25-OH Vitamin D, Total < 12.8 ng/mL (30-100)
[2024-05-13 20:12] LABS: HIV (1&2) Antibody Rapid NONREACTIVE (NONREACTIVE)
[2024-05-14 18:30] LABS: Hemoglobin A1C 6.1 % (4.0-6.0)
[2024-05-15 08:42] LABS: HCV Ab Non Reactive (Non Reactive)
== END 2024-05-13 23:59 | disposition home or self-care (01) ==
LOC: LAB.DROPOF 05-14 14:49
PROVIDERS: PCP Student in an Organized Health Care Education/Training Program; Visit Provider Student in an Organized Health Care Education/Training Program
DX: E55.9 Vitamin D deficiency, unspecified (principal); Z11.59 Encounter for screening for other viral diseases; Z91.89 Other specified personal risk factors, not elsewhere classified; Z11.4 Encounter for screening for human immunodeficiency virus [HIV]; E66.9 Obesity, unspecified; E11.9 Type 2 diabetes mellitus without complications; Z79.84 Long term (current) use of oral hypoglycemic drugs
CPT/HCPCS: 80053; 80061; 82306; 83036; 85025; 86803; 87389

== ENCOUNTER 2024-06-29 12:22 | Emergency (ER) | payer OTHER, SELFPAY ==
--- NOTE | 2024-06-29 12:40 | XR_ITS ---
PROCEDURE INFORMATION: Exam: XR Left Forearm Exam date and time: 06/29/2024 12:36 PM Age: 53 years old Clinical indication: Injury or trauma; Fall; Blunt trauma (contusions or hematomas); Arm, lower; Left TECHNIQUE: Imaging protocol: Radiologic exam of the left forearm. Views: 2 views. COMPARISON: CR Elbow L 06/29/2024 12:35 PM FINDINGS: Bones/joints: Normal. No fracture or destructive bone lesion. Soft tissues: Mild soft tissue swelling posterior to the left elbow. The soft tissues of the left forearm are unremarkable. No radiopaque foreign body. IMPRESSION: No acute findings.
--- NOTE | 2024-06-29 12:40 | XR_ITS ---
PROCEDURE INFORMATION: Exam: XR Left Elbow Exam date and time: 06/29/2024 12:35 PM Age: 53 years old Clinical indication: Injury or trauma; Fall; Blunt trauma (contusions or hematomas); Elbow; Left TECHNIQUE: Imaging protocol: Radiologic exam of the left elbow. Views: 3 or more views. COMPARISON: No relevant prior studies available. FINDINGS: Bones/joints: There is normal anatomic alignment of the left elbow. No fracture or destructive bone lesion. Soft tissues: Mild soft tissue swelling along the posterior aspect of the left elbow. No radiopaque foreign body or gas in the soft tissues. IMPRESSION: Mild posterior left elbow soft tissue swelling. No evidence of a fracture.
[2024-06-29 12:41] VITALS: BP 147/90; PULSE 71; RESP 18; TEMP 36.6; O2SAT 98; BMI 35.6
--- NOTE | 2024-06-29 12:58 | EXP.UTC ---
Discharge Plan Disposition Patient Disposition: Home, Self-Care Condition: Good Prescriptions Prescriptions: No Action cyclobenzaprine 10 mg tablet 10 mg PO BID PRN (Reason: Muscle Spasm) Qty: 20 0RF indomethacin 25 mg capsule 25 mg PO TID 7 Days Qty: 21 0RF Rx Instructions: administer with food or milk metformin 500 mg tablet extended release 24 hr 500 mg PO BID Qty: 180 0RF valacyclovir 500 mg tablet 500 mg PO DAILY Qty: 90 0RF metoprolol succinate 50 mg tablet extended release 24 hr 50 mg PO DAILY Qty: 90 0RF amlodipine 10 mg tablet 10 mg PO DAILY Qty: 90 0RF lisinopril 20 mg tablet 40 mg PO DAILY Qty: 180 0RF duloxetine 60 mg capsule,delayed release(DR/EC) 60 mg PO DAILY Qty: 90 0RF atorvastatin 80 mg tablet 80 mg PO DAILY Qty: 90 0RF cholecalciferol (vitamin D3) 1,250 mcg (50,000 unit) capsule 1,250 mcg PO WEEKLY Qty: 14 0RF prednisone 20 mg tablet 20 mg PO BID 4 Days Qty: 8 0RF aspirin 81 mg Capsule 81 mg PO DAILY Referrals Follow up/Referrals: Desire Pack PA [Primary Care Provider] - See instructions Activity Restrictions/Add. Instructions Additional Instructions/Restrictions: Tylenol or ibuprofen as needed for pain Ice for 20 minutes every hour for comfort Charles wrap Elevate If symptoms worsen or no improvement return Follow-up with Ortho if needed Clinical Impressions Clinical Impression: Contusion of elbow and forearm Instructions Patient Instructions: DI for Contusion Print Language Print Language: Malagasy Discharge ED Provider: Juventino ([facility] [place] H[place] General Stated complaint: AO- 06/22/24- fall on diane, Pain in Left arm Mode of Arrival: Ambulatory Source of Information: Patient Time Seen by Provider: 06/29/24 12:58 Description of Symptoms (Recalled from Triage Doc. by RN): fell onto left elbow and forearm, pain when extending elbow HEENT Symptoms (Recalled from RN notes): No Resp Symptoms (Recalled from RN notes): No Skin Symptoms (Recalled from RN notes): No MS Symptoms (Recalled from RN notes): Yes Functional Status (Recalled from RN notes): wnl History of Present Illness Provider Complaint: 53-year-old male presents for left elbow and forearm pain. Patient states he [place] [address] and landed on left elbow and forearm and now is having pain with extending his arm Related Data Home Medications ?Medication ?Instructions ?Recorded ?Confirmed aspirin 81 mg capsule 81 mg PO DAILY 04/30/24 06/29/24 Previous Rx's ?Medication ?Instructions ?Recorded metformin 500 mg tablet,extended 500 mg PO BID #180 tabs 11/29/23 release 24 hr amlodipine 10 mg tablet 10 mg PO DAILY hypertension #90 03/12/24 tabs atorvastatin 80 mg tablet 80 mg PO DAILY hyperlipidemia #90 03/12/24 tabs duloxetine 60 mg capsule,delayed 60 mg PO DAILY mood disorder #90 03/12/24 release caps lisinopril 20 mg tablet 40 mg (2 x 20 mg) PO DAILY 03/12/24 hypertension #180 tabs metoprolol succinate 50 mg 50 mg PO DAILY #90 tabs 03/12/24 tablet,extended release 24 hr valacyclovir 500 mg tablet 500 mg PO DAILY #90 tabs 03/12/24 prednisone 20 mg tablet 20 mg PO BID 4 days #8 tabs 05/03/24 cyclobenzaprine 10 mg tablet 10 mg PO BID PRN Muscle Spasm #20 05/13/24 tabs indomethacin 25 mg capsule 25 mg PO TID 7 days #21 caps 05/13/24 cholecalciferol (vitamin D3) 1,250 1,250 mcg PO WEEKLY #14 caps 05/14/24 mcg (50,000 unit) capsule Allergies Allergy/AdvReac Type Severity Reaction Status Date / Time buspirone Allergy Mild Rash Verified 05/13/24 13:01 ciprofloxacin (From Cipro) Allergy Verified 05/13/24 13:01 ketorolac (From Toradol) AdvReac Intermediate Elevated Verified 05/13/24 13:01 blood pressure Worker's Comp Is this a Worker's Comp case?: No [facility] Disclaimer: The information contained in this section may have been updated after the patient was seen, as this information can be updated by other users. Medical History (Reviewed 06/29/24 @ 13:19 by Celeste Jauregui ([facility]), [employer]) Screening for lung cancer Allergic rhinitis, unspecified Encounter for screening for malignant neoplasm of lung in patient with less than 30 pack year smoking history Family history of alpha 1 antitrypsin deficiency Asthma Dyspnea on exertion Stopped smoking with greater than 20 pack year history COPD (chronic obstructive pulmonary disease) Asthma Restless sleeper Daytime somnolence Non-ST elevation [place] (NSTEMI) Obesity (BMI 30-39.9) Unstable angina pectoris Angina pectoris Dyspnea Chest pain CAD (coronary artery disease) Bipolar disorder Anxiety Chronic pain in right foot Vitamin D deficiency (~10/04/17) Toe deformity, acquired Hypertension Depression Hyperlipemia Surgical History (Reviewed 06/29/24 @ 13:19 by Celeste Jauregui ([facility]), [employer]) History of heart artery stent History of coronary artery bypass graft x 3 Hx of foot surgery History of heart artery stent Hx of CABG Family History (Reviewed 06/29/24 @ 13:19 by Celeste Jauregui ([facility]), [employer]) Diabetes Family history of stroke Coronary artery disease Hyperlipidemia Family history of myocardial infarction COPD (chronic obstructive pulmonary disease) Hypertension Asthma Social History (Reviewed 06/29/24 @ 13:19 by Celeste Jauregui ([facility]), [employer]) Smoking Status: Former smoker tobacco type: cigarettes packs per day: 1 alcohol intake: never substance use type: denies use current occupational status: employed Travel in the last 8 weeks: None household members: none housing: house lives independently: Yes marital status: single education level: college service: No halfway: No caffeine: Yes special perri needs: No agree to transfusion: No do you feel safe at home: Yes victim of physical abuse: No victim of emotional abuse: No victim of sexual abuse: No would you like helpful sources: No Have you lived/traveled outside [place] in past 30 days?: No Contact w/someone who lives/traveled outside US past 30 days?: No Exposure to someone with infectious disease in past 14 days?: No Do you have a fever (greater than 100.4 F or 38 C)?: No Have you tested positive for COVID-19: No Exposed to someone with COVID-19 in past 14 days?: No Do you have a sore throat?: No Do you have a cough?: No Do you have any weakness?: No Do you have any diarrhea?: No Are you experiencing any unusual bleeding?: No Do you have any muscle aches/pain?: No Do you have any abdominal pain?: No Are you experiencing loss of taste or smell?: No ROS Obtained: Yes Systems reviewed as appropriate & no additional complaints except as documented Musculoskeletal Musculoskeletal: Reports system reviewed and no additional complaints, except as documented, Reports as per HPI, Reports arthralgias, Reports joint swelling and Reports limited range of motion Physical Exam General General appearance: alert and in no apparent distress ENT ENT exam: Present normal exam Respiratory Respiratory exam: Present normal lung sounds bilaterally Cardiovascular Cardiovascular exam: Present regular rate and normal rhythm Extremities Exam Extremities exam: Present normal inspection, tenderness and normal capillary refill Expanded Upper Extremity Exam Left: Shoulder exam: Present normal inspection Arm exam: Present normal inspection Elbow exam: Present normal inspection, tenderness and other (Pain with extension) Forearm/Wrist exam: Present normal inspection and tenderness Neurological Exam Neurological exam: Present alert and oriented X3 Skin Skin exam: Present warm and intact Medical Decision Making Medical Records Medical records reviewed: Yes I reviewed the patient's medical records. Screening: Per USPSTF and CDC recommendations, given the prevalence of disease in our region, it is our hospital?s policy to screen for HIV and viral Hepatitis for all patients aged 18 and over and those with ongoing risk factors. Lino Inquiry Pt receiving controlled substance: No Vital Signs: 06/29/24 12:41 Temperature 98 F Temperature Source Oral Pulse Rate [Left Radial] 71 Respiratory Rate 18 Blood Pressure [Left Arm] 147/90 H Blood Pressure Mean [Left Arm] 109 02 Sat by Pulse Oximetry 98 Orders (Tests/Meds): ORDERS Category Date Time Status Forearm XR left 2 views [XR forearm LT 2V] Stat Exams 06/29/24 12:40 Taken XR elbow LT min 3V Stat Exams 06/29/24 12:40 Taken Radiology Data #1: Image(s): Elbow and Forearm Image Reviewed: Yes I have reviewed radiologist's interpretation Preliminary Findings: Normal/NAD
[2024-06-29 13:25] VITALS: BP 147/90; PULSE 71; RESP 18; TEMP 36.6
== END 2024-06-29 13:29 | disposition home or self-care (01) ==
PROVIDERS: Emergency Provider Nurse Practitioner Family; PCP Student in an Organized Health Care Education/Training Program
DX: S50.10XA Contusion of unspecified forearm, initial encounter (principal)
CPT/HCPCS: 73080; 73090; 99213; G0381

== ENCOUNTER 2024-07-22 12:29 | Emergency (ER) | payer OTHER, SELFPAY ==
--- NOTE | 2024-07-22 12:53 | ED_ITS ---
<Statement entered by Elizabeth Jimenez DO - 07/23/24 07:08> I was consulted by the MORALES, and we discussed the complexity of the problems being addressed. I approved the treatment and management plan for this patient's care in the emergency department, thus performing a substantive portion of the medical decision making. Elizabeth Jimenez DO Discharge Plan Disposition Patient Disposition: Home, Self-Care Condition: Good Prescriptions Prescriptions: New lidocaine 5 % adhesive patch,medicated 1 patch topical DAILY Qty: 30 0RF Rx Instructions: leave on most painful area for up to 12 hrs ibuprofen 800 mg tablet 800 mg PO Q8H PRN (Reason: pain) Qty: 30 0RF No Action prednisone 20 mg tablet 20 mg PO BID Qty: 10 0RF metformin 500 mg tablet extended release 24 hr 500 mg PO BID Qty: 180 0RF valacyclovir 500 mg tablet 500 mg PO DAILY Qty: 90 0RF metoprolol succinate 50 mg tablet extended release 24 hr 50 mg PO DAILY Qty: 90 0RF amlodipine 10 mg tablet 10 mg PO DAILY Qty: 90 0RF lisinopril 20 mg tablet 40 mg PO DAILY Qty: 180 0RF duloxetine 60 mg capsule,delayed release(DR/EC) 60 mg PO DAILY Qty: 90 0RF atorvastatin 80 mg tablet 80 mg PO DAILY Qty: 90 0RF cholecalciferol (vitamin D3) 1,250 mcg (50,000 unit) capsule 1,250 mcg PO WEEKLY Qty: 14 0RF aspirin 81 mg Capsule 81 mg PO DAILY Referrals Follow up/Referrals: Provider,Referral, MD [Primary Care Provider] - See instructions Activity Restrictions/Add. Instructions Additional Instructions/Restrictions: As we discussed please call to make your appointment with Dr. Jennings. I have provided a sling for your comfort. Please try taking 1000 mg of Tylenol alternating every 4 hours with 800 mg of Motrin to see if that reduces your overall pain level. I have sent a prescription for the ibuprofen into your pharmacy. If the Lidoderm topical patch helps you have a prescription for that as well at your pharmacy. Please do not pick it up to you know that it is beneficial. I have referred you to Dr. Jose Guido. I would suggest calling to establish care with him as soon as possible. If you have any new continuing or worsening signs or symptoms follow-up with Dr. Guido or return to the ER as needed. Clinical Impressions Clinical Impression: Epicondylitis, lateral, left Stand Alone Forms Stand Alone Forms: Work/School Release Print Language Print Language: Vincentian Discharge ED Provider: Elizabeth Jimenez General Adult HPI General Chief complaint: Extremity Injury, Upper Stated complaint: AO-06/29- Pain in L arm Time Seen by Provider: 07/22/24 12:53 History of Present Illness HPI narrative: Patient presents for evaluation of left arm pain. Patient fell on ice at the end of June landing on his left elbow. He was seen both in the ER and by his PCP and no evidence of fracture was seen. However patient presents with continued pain at the lateral epicondyle of his left elbow with pain radiating down his forearm. He denies loss of motor or sensory. He denies any aggravating or relieving factors. Related Data Home Medications ?Medication ?Instructions ?Recorded ?Confirmed aspirin 81 mg capsule 81 mg PO DAILY 04/30/24 07/22/24 Previous Rx's ?Medication ?Instructions ?Recorded metformin 500 mg tablet,extended 500 mg PO BID #180 tabs 11/29/23 release 24 hr amlodipine 10 mg tablet 10 mg PO DAILY hypertension #90 03/12/24 tabs atorvastatin 80 mg tablet 80 mg PO DAILY hyperlipidemia #90 03/12/24 tabs duloxetine 60 mg capsule,delayed 60 mg PO DAILY mood disorder #90 03/12/24 release caps lisinopril 20 mg tablet 40 mg (2 x 20 mg) PO DAILY 03/12/24 hypertension #180 tabs metoprolol succinate 50 mg 50 mg PO DAILY #90 tabs 03/12/24 tablet,extended release 24 hr valacyclovir 500 mg tablet 500 mg PO DAILY #90 tabs 03/12/24 cholecalciferol (vitamin D3) 1,250 1,250 mcg PO WEEKLY #14 caps 05/14/24 mcg (50,000 unit) capsule prednisone 20 mg tablet 20 mg PO BID #10 tabs 07/01/24 ibuprofen 800 mg tablet 800 mg PO Q8H PRN pain #30 tabs 07/22/24 lidocaine 5 % topical patch 1 patch topical DAILY #30 ea 07/22/24 Allergies Allergy/AdvReac Type Severity Reaction Status Date / Time buspirone Allergy Mild Rash Verified 07/01/24 14:21 ciprofloxacin (From Cipro) Allergy Verified 07/01/24 14:21 ketorolac (From Toradol) AdvReac Intermediate Elevated Verified 07/01/24 14:21 blood pressure [facility] Disclaimer: The information contained in this section may have been updated after the patient was seen, as this information can be updated by other users. Medical History Screening for lung cancer Allergic rhinitis, unspecified Encounter for screening for malignant neoplasm of lung in patient with less than 30 pack year smoking history Family history of alpha 1 antitrypsin deficiency Asthma Dyspnea on exertion Stopped smoking with greater than 20 pack year history COPD (chronic obstructive pulmonary disease) Asthma Restless sleeper Daytime somnolence Non-ST elevation [place] (NSTEMI) Obesity (BMI 30-39.9) Unstable angina pectoris Angina pectoris Dyspnea Chest pain CAD (coronary artery disease) Bipolar disorder Anxiety Chronic pain in right foot Vitamin D deficiency (~10/04/17) Toe deformity, acquired Hypertension Depression Hyperlipemia Surgical History History of heart artery stent History of coronary artery bypass graft x 3 Hx of foot surgery right History of heart artery stent Hx of CABG Family History Other Asthma COPD (chronic obstructive pulmonary disease) Coronary artery disease Diabetes Family history of myocardial infarction Family history of stroke Hyperlipidemia Hypertension Social History Smoking Status: Former smoker tobacco type: cigarettes packs per day: 1 alcohol intake: never substance use type: denies use current occupational status: employed Travel in the last 8 weeks: None household members: none housing: house lives independently: Yes marital status: single education level: college service: No long term: No caffeine: Yes special perri needs: No agree to transfusion: No do you feel safe at home: Yes victim of physical abuse: No victim of emotional abuse: No victim of sexual abuse: No would you like helpful sources: No Other Medical History Have you received the Flu Vaccine for this season: Yes Have you received the Pneumonia Vaccine: Yes ROS Obtained: Yes Systems reviewed as appropriate & no additional complaints except as documented Physical Exam General General appearance: alert and in no apparent distress Respiratory Respiratory exam: Present normal lung sounds bilaterally Cardiovascular Cardiovascular exam: Present regular rate Neurological Exam Neurological exam: Present alert and oriented X3 Medical Decision Making Medical Records Medical records reviewed: Yes I reviewed the patient's medical records. Screening: Per USPSTF and CDC recommendations, given the prevalence of disease in our region, it is our hospital?s policy to screen for HIV and viral Hepatitis for all patients aged 18 and over and those with ongoing risk factors. Lino Inquiry Pt receiving controlled substance: No Vital Signs: 07/22/24 13:15 07/22/24 13:18 07/22/24 13:53 Temperature 98.4 F 98.4 F Temperature Source Oral Oral Pulse Rate 60 Pulse Rate [Right] 63 63 Respiratory Rate 16 17 Blood Pressure 130/80 Blood Pressure [Right Arm] 137/60 Blood Pressure Mean [Right Arm] 85 Blood Pressure Source Automatic Cuff Blood Pressure Source [Right Arm] Automatic Cuff 02 Sat by Pulse Oximetry 98 Oxygen Delivery Method Room Air Room Air Orders (Tests/Meds): ED MEDICATIONS Discontinued Medications Generic Name Dose Route Start Last Admin Trade Name Freq PRN Reason Stop Dose Admin Lidocaine 1 each 07/22/24 13:18 07/22/24 13:39 Lidocaine 5% Transdermal Patch TP 07/22/24 13:19 1 each ONCE ONE Administration Oxycodone HCl 5 mg 07/22/24 13:18 07/22/24 13:39 Oxycodone 5mg Immediate Release Tablet PO 07/22/24 13:19 5 mg ONCE ONE Administration Medical Decision Narrative: In summary patient is a 53-year-old male who presents to the emergency department for evaluation of left elbow and forearm pain. Patient is hemodynamically stable upon arrival, afebrile. Physical exam is remarkable for tenderness to palpation at the lateral epicondyle without evidence of bony deformity. Patient has painful pronation supination but is neurovascularly intact. Patient has full range of motion of his elbow.. Differential diagnosis includes bone bruise versus flexor tendon tear i.e. tennis elbow versus stress fracture etc. Initial workup was considered with labs and imaging however patient had plain film x-rays done at the time of his initial injury that showed no fracture thus deferred. Initial interventions include Tylenol ibuprofen Lidoderm patch and oxycodone. I had interactive discussion with the patient regarding his symptoms presentation and course and findings on physical exam suggestive of lateral epicondylitis versus partial tendon tear. As patient is neurovascularly intact with no red flags of muscle disruption patient would benefit from orthopedic evaluation and MRI. To that end I recommended orthopedics evaluation and via patient directed decision making he is agreeable to this plan. He will be referred to Dr. Jennings of orthopedics, given a sling for comfort a Lidoderm patch applied here in the ER with prescription sent to his pharmacy a course of steroids was offered however patient declined. Thus patient is ready for discharge with close follow-up with orthopedics. Critical Care Critical Care Time Critical Care Time: No
[2024-07-22 13:15] VITALS: BP 137/60; PULSE 63; RESP 16; TEMP 36.9; O2SAT 98; BMI 34.2
[2024-07-22 13:18] VITALS: PULSE 63
[2024-07-22] MEDS: LIDOCAINE 5% TRANSDERMAL PATCH 1 EACH TP (13:39)
[2024-07-22] MEDS: OXYCODONE 5MG IMMEDIATE RELEASE TABLET 5 MG PO (13:39)
[2024-07-22 13:53] VITALS: BP 130/80; PULSE 60; RESP 17; TEMP 36.9; O2SAT 98
== END 2024-07-22 14:01 | disposition home or self-care (01) ==
PROVIDERS: Emergency Provider Emergency Medicine
DX: M77.12 Lateral epicondylitis, left elbow (principal); M79.602 Pain in left arm; M25.522 Pain in left elbow; F17.210 Nicotine dependence, cigarettes, uncomplicated
CPT/HCPCS: 99283

== ENCOUNTER 2024-08-05 11:29 | Outpatient (CLI) | payer OTHER, SELFPAY ==
[2024-08-05 22:24] LABS: Coronavirus 19, PCR Not Detected (NotDetected); Influenza A, PCR Not Detected (NotDetected); Influenza B, PCR Not Detected (NotDetected)
== END 2024-08-05 23:59 | disposition home or self-care (01) ==
LOC: LAB.DROPOF 08-07 13:34
PROVIDERS: PCP Student in an Organized Health Care Education/Training Program; Visit Provider Student in an Organized Health Care Education/Training Program
DX: R50.9 Fever, unspecified (principal); R05.9 Cough, unspecified
CPT/HCPCS: 87636

== ENCOUNTER 2024-08-06 12:54 | Outpatient (CLI) | payer OTHER, SELFPAY ==
--- NOTE | 2024-08-06 12:55 | MR_ITS ---
FINAL REPORT TECHNIQUE: Multiplanar MR without contrast CLINICAL HISTORY: left elbow pain. LATERAL SIDED PAIN FINDINGS: The marrow signal pattern is normal. Specifically there is no evidence of bone contusion or fracture. Small joint effusion is present. There is no osteochondral defect. There are mild degenerative changes. Medial and lateral collateral ligaments are intact. Biceps and triceps tendons are unremarkable. Flexor tendons have a normal appearance. There is a high-grade partial tear of the common extensor tendon at the lateral epicondyle attachment. IMPRESSION: High-grade partial tear of the common extensor tendon. Reviewed, Interpreted and Dictated by Atul Tam MD Transcribed by Huong Puente Authenticated and [facility]
== END 2024-08-06 23:59 | disposition home or self-care (01) ==
LOC: RAD 12:55
PROVIDERS: PCP Student in an Organized Health Care Education/Training Program; Visit Provider Physician Assistant
DX: M25.522 Pain in left elbow (principal)
CPT/HCPCS: 73221

== ENCOUNTER 2024-09-05 09:00 | Outpatient (CLI) | payer OTHER, SELFPAY ==
[2024-09-05 18:04] LABS: Alanine Aminotransferase 27 U/L (12-78); Albumin Level 3.9 g/dl (3.5-5.0); Albumin/Globulin Ratio 1.7 (1.1-1.8); Alkaline Phosphatase 75 U/L (38-126); Anion Gap 13.4 mEq/L (5-15); Aspartate Amino Transferase 28 U/L (17-59); Bilirubin,Total 0.5 mg/dl (0.2-1.3); Blood Urea Nitrogen 13 mg/dl (9-20); Calcium 9.2 mg/dl (8.4-10.2); Carbon Dioxide 28 mmol/L (22.0-30.0); Chloride 102 mmol/L (98-107); Chol/HDL Ratio 2.6 (1-3.5); Cholesterol 122 mg/dl (140-200); Estimated Glomerular Filt Rate 89 ml/min (>60); GFR (African American) 107 ML/MIN (>60); Globulin 2.3 g/dL (1.3-3.2); Glucose 86 mg/dl (74-100); HDL Cholesterol 47 mg/dl (40-60); Potassium 4.4 mmoL/L (3.5-5.1); Sodium 139 mmol/L (136-145); Total Protein,Serum 6.2 g/dl (6.3-8.2); Triglycerides 65 mg/dl (30-150); VLDL Cholesterol 13 mg/dL (0-40)
[2024-09-05 18:16] LABS: Direct LDL Cholesterol 65.35 mg/dL (100-129)
[2024-09-05 18:21] LABS: 25-OH Vitamin D, Total 48.4 ng/mL (30-100)
== END 2024-09-05 23:59 | disposition home or self-care (01) ==
LOC: LAB.DROPOF 09-06 11:23
PROVIDERS: PCP Family Medicine; Visit Provider Family Medicine
DX: E11.9 Type 2 diabetes mellitus without complications (principal); E78.2 Mixed hyperlipidemia; E55.9 Vitamin D deficiency, unspecified; I10 Essential (primary) hypertension
CPT/HCPCS: 80053; 80061; 82306; 83036

== ENCOUNTER 2024-09-24 09:36 | Outpatient (CLI) | payer OTHER, SELFPAY ==
--- NOTE | 2024-09-24 10:00 | CT_ITS ---
FINAL REPORT TECHNIQUE: Axial CT images were obtained through the chest without contrast. Coronal and sagittal reformatted images were also obtained. This study was performed with techniques to keep radiation doses as low as reasonably achievable, (ALARA). Individualized dose reduction techniques using automated exposure control or adjustment of mA and/or kV according to the patient's size were employed. CLINICAL HISTORY: Pulmonary nodule COMPARISON: 10/24/2022 FINDINGS: CT CHEST W/O CONTRAST There is streak artifact arising from multiple median sternotomy wires. There is dense calcification of the coronary arteries. There is no mediastinal mass or adenopathy. There is linear scarring in the inferior portions of both upper lobes. The previously questioned nodule at the anterior margin of the minor fissure is more linear in configuration on today's exam that is probably related to scarring. This is best seen on image #127. No new nodules are identified. Limited images of the through the upper abdomen are unremarkable. IMPRESSION: Stable nodular density at the anterior minor fissure. Recommend return to normal screening interval chest CT. Reviewed, Interpreted and Dictated by Ubaldo Snell MD Transcribed by Sarah Rodríguez Authenticated and [facility]
== END 2024-09-24 23:59 | disposition home or self-care (01) ==
LOC: RAD 09:36
PROVIDERS: PCP Family Medicine; Visit Provider Family Medicine
DX: R91.1 Solitary pulmonary nodule (principal)
CPT/HCPCS: 71250

== ENCOUNTER 2024-09-26 10:44 | Outpatient (CLI) | payer OTHER, SELFPAY ==
[2024-09-26 15:50] LABS: Coronavirus 19, PCR Not Detected (NotDetected); Influenza A, PCR Not Detected (NotDetected); Influenza B, PCR Not Detected (NotDetected)
== END 2024-09-26 23:59 | disposition home or self-care (01) ==
LOC: LAB.DROPOF 09-30 10:45
PROVIDERS: PCP Family Medicine; Visit Provider Student in an Organized Health Care Education/Training Program
DX: R05.9 Cough, unspecified (principal)
CPT/HCPCS: 87636

== ENCOUNTER 2024-12-23 11:54 | Outpatient (CLI) | payer OTHER, SELFPAY ==
--- OUTSIDE RECORDS SUMMARY | 2024-12-23 11:56 | XMS_ITS | Encounter Summary ---
Author Organization [facility] Address [address] [id number] Care Team Providers Care Telecommunications Cable Jointer Name Role Phone Alan Hutson MD Primary Care Provider [phone] Encounter Details Date Type Department Care Team (Latest Contact Info) Description 12/29/2021 Community [facility] [address] [place] [address] Elsa Zhou, PA [address] [place] [address] Degenerative lumbar spinal stenosis (Primary Dx) Social History Tobacco Use Types Packs/Day Years Used Date Smoking Tobacco: Former Smokeless Tobacco: Never Alcohol Use Standard Drinks/Week Comments No 0 (1 standard drink = 0.6 oz pur e alcohol) Sex and Gender Information Value Date Recorded Sex Assigned at Male 07/21/2021 8:47 AM EST Legal Sex Male 7:27 PM EDT Gender Identity Male 07/21/2021 8:47 AM EST Sexual Orientation Cantrell 07/21/2021 8: 47 AM EST documented as of this encounter Plan of Treatment Not on file documented as of this encounter Visit Diagnoses Diagnosis Degenerative lumbar spinal stenosis- Primary Spinal stenosis of lumbar region documented in this encounter Additional Health Concerns Assessment Noted Time A fall risk assessment has been complete d for the patient 10/07/2021 1:47 PM EDT documented as of this encounter Care Teams Telecommunications Cable Jointer Relationship Specialty Start Date End Date Alan Hutson MD [address] [facility] [place] [address] PCP - General 10/16/20 documented as of this encounter
--- OUTSIDE RECORDS SUMMARY | 2024-12-23 11:56 | XMS_ITS | Clinical Summary ---
Author Organization [facility] Address [address] [place] [address] Care Team Providers Care Auditing Control Clerk Name Role Phone Alan Hutson MD Primary Care Provider Allergies Active Allergy Reactions Criticality Noted Date Comments Codeine Nausea 06/19/2013 Medications Ventolin HFA 108 (90 Base) MCG/ACT inhaler Inhale 2 puffs every 6 (six) hours if needed. 1 Active DULoxetine (Cymbalta) [address] capsule Take 1 capsule by mouth 1 (one) time each day. 1 Active ergocalciferol 1.25 MG (89992 UT) capsule Take 1 capsule by mouth 1 (one) time per week. 1 Active Flovent HFA 44 MCG/ACT inhaler Inhale 1 puff 2 (two) times a day if needed. 1 Active valACYclovir (Valtrex) 500 MG tablet Take 1 tablet by mouth 1 (one) time each day. 1 Active cholecalciferol (Vitamin D3) 25 MCG (1000 UT) tablet Take 1,000 Units by mouth 1 (one) time each day. Active multivitamin-ir ic-rzodotgx-sit ic acid (Centrum) chewable tablet Chew 1 tablet 1 (one) time each day. Active budesonide-form oterol (Symbicort) 160-4.5 MCG/ACT inhaler Inhale 2 puffs 2 (two) times a day. Rinse mouth with water after use to reduce aftertaste and incidence of candidiasis. Do not swallow. Active albuterol 1.25 MG/3ML nebulizer solution Take 1.25 mg by nebulization every 6 (six) hours if needed for wheezing. Active nitroglycerin (Nitrostat) 0.[address] 1 tablet (0.4 mg total) under the tongue every 5 (five) minutes if needed for chest pain. 90 tablet 2 2 Active metoprolol succinate XL (Toprol-XL) 50 MG 24 hr tablet Take 1 tablet (50 mg total) by mouth 1 (one) time each day. 90 tablet 3 2 Active isosorbide mononitrate ER (Imdur) 60 MG 24 hr tablet Take 1 tablet (60 mg total) by mouth 1 (one) time each day. Do not crush or chew. 30 tablet 11 2 Active amLODIPine (Norvasc) 10 MG tablet Take 1 tablet (10 mg total) by mouth 1 (one) time each day. 30 tablet 2 Active atorvastatin (Lipitor) 80 MG tablet Take 1 tablet (80 mg total) by mouth every night. 30 tablet 2 Active lisinopril 20 MG tablet Take 1 tablet (20 mg total) by mouth 2 (two) times a day. 60 tablet 2 Active Active Problems Problem Noted Date Diagnosed Date Chest pain 10/13/2021 Overview (10/13/2021): Added automatically from request for surgery [id number] Coronary artery disease 02/17/2021 History of non-ST elevation myocardial infarctio n (NSTEMI) 12/16/2020 History of coronary artery bypass graft x 1 12/03 Atherosclerosis of coronary artery 07/19/2013 Depression 06/19/2013 Hyperlipidemia 06/19/2013 Hypertension 06/19/2013 Overweight 06/19/2013 Resolved Problems Problem Noted Date Diagnosed Date Resolved Date Stable angina 12/16/2020 02/18/2021 Chest pain 12/16/2020 02/18/2021 Assessment & Plan (12/16/2020 7:34 PM EDT): - Patient experiencing some persistent angina since his NSTEMI that has kept him from doing some of his normal activities - Reviewed patient's records including EKG done in clinic and EKG, Echo, and LHC performed at [facility]. 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 Generally agree that there may be more harm than benefit associated with attempting a thrombectomy at this stage; however, will discuss with an interventional colleague to gather their opinion - Will follow-up with patient in 4-6 weeks Hyperglycemia 06/19/2013 02/18/2021 Recurrent tonsillitis 06/19/20132020 Immunizations Immunization Administration Dates Next Due Hep A, Unspecified 03/16/2009 Influenza, Unspecified 03/06/2010 Influenza, seasonal, intradermal, preservative f ree 07/19/2013 Family History Medical History Relation Name Comments Cardiac disorder Father Emphysema Father Hypertension Father Allergies Mother Arthritis Mother Asthma Mother Cardiac disorder Mother Diabetes Mother Emphysema Mother Gout Mother Hypertension Mother Stroke Other 1 Diabetes Other 2 Heart attack Other 3 Relation Name Status Comments Father Mother Other 1 Other 2 Other 3 Social History Tobacco Use Types Packs/Day Years Used Date Smoking Tobacco: Former Smokeless Tobacco: Never Tobacco Cessation:Counseling Given: No Alcohol Use Standard Drinks/Week Comments No 0 (1 standard drink = 0.6 oz pur e alcohol) Sex and Gender Information Value Date Recorded Sex Assigned at Male 07/21/2021 8:47 AM EST Legal Sex Male 7:27 PM EDT Gender Identity Male 07/21/2021 8:47 AM EST Sexual Orientation Cantrell 07/21/2021 8: 47 AM EST Last Filed Vital Signs Vital Sign Reading Time Taken Comments Blood Pressure 121/93 10/20/2021 4:00 PM EDT Pulse 76 10/20/2021 4:45 PM EDT Temperature 36.7 C (98 F) 10/20/2021 2:00 PM EDT Respiratory Rate 16 10/20/2021 4:45 PM EDT Oxygen Saturation 94% 10/20/2021 4:45 PM EDT Inhaled Oxygen Concentration - - Weight 109 kg (240 lb) 10/20/2021 9:56 AM EDT Height 175.3 cm (5' 9 ) 10/20/2021 9:56 AM EDT Body Mass Index 35.44 10/20/2021 9:56 AM EDT Plan of Treatment Health Maintenance Due Date Last Done Comments [facility]-Depression Screening 1972 [facility]-Infant/Child/Adol SDOH Screenings 1972 [facility]- SDOH Screenings 1990 [facility]-Adult SDOH Screenings 1990 [facility]-DTaP,Tdap,and Td Vaccines (1 - Tdap) 09/03/1991 [facility]-Hepatitis B Vaccines (1 of 3 - 19+ 3-dose series) 09/03/1991 CT Colonography 2017 Colonoscopy 2017 FIT-DNA 2017 FIT 2017 FOBT 2017 Sigmoidoscopy 2017 [facility]-Colorectal Cancer Screening 2017 [facility]-Pneumococcal Vaccine: 50+ Years (2 of 2 - PCV) 2022 02/23/2017, 06/26/2014 [facility]-Zoster Vaccines (1 of 2) 2022 [id number] Vaccine ( season) 2024 04/05/2022, 02/10/2021, 2020, Additional history exists [facility]-Influenza Vaccine (#1) 02/03/202504/05, 03/02/2021, 04/08/2020, Additional history exists [facility]-Hepatitis A Vaccines Completed 019, 12/01/2017, 03/16/2009 HPV Vaccines Aged Out No longer eligi ble based on patient's age to complete this topic [facility]-HIB Vaccines Aged Out No longer e ligible based on patient's age to complete this topic [facility]-IPV Vaccines Aged Out No longer e ligible based on patient's age to complete this topic [facility]-Rotavirus Vaccines Aged Out No lo nger eligible based on patient's age to complete this topic Medical Devices Implanted Type Area Medical Technologist Blood Bank Device Identifier Shelf Expiration Date Model / Serial / Lot Stent Coronary Resolute Rodriguez Rx 2.25mm X 18mm - [id number] Implanted:Qty: 1 on 02/17/2021 by Jg Ballard MD at [facility]-[id number] 11/10/2023 [id number] X / / [id number] Stent Coronary Resolute [place] Rx 3.00mm X 30mm - [id number] Implanted:Qty: 1 on 02/17/2021 by Jg Ballard MD at [facility]-[id number] 09/21/2023 [id number] X / / [id number] Stent Coronary Resolute Rodriguez Rx 2.50mm X 22mm - [id number] Implanted:Qty: 1 on 02/17/2021 by Jg Ballard MD at [facility]-[id number] 2022 [id number] X / / [id number] Stent Coronary Resolute Phillips Rx 2.50mm X 15mm - [id number] Implanted:Qty: 1 on 02/17/2021 by Jg Ballard MD at [facility]-[id number] 10/06/2023 [id number] X / / [id number] Stent Coronary Resolute Rodriguez Rx 3.50mm X 15mm - [id number] Implanted:Qty: 1 on 02/17/2021 by Jg Ballard MD at [facility]-[id number] 06/08/2022 [id number] X / / [id number] Vip Vascular Closure Device 6 Fr - [id number] Implanted:Qty: 1 on 02/17/2021 by Jg Ballard MD at [facility] Financial Fairy [id number] 10/02/2021 [id number] / / [id number] Advance Directives * Full Code (Latest Code Status on File) Date Activated Date Inactivated Comments 02/17/2021 1:35 PM 02/18/2021 6:34 PM Question Answer Comments Patient has decision-making capacity? Yes Care Teams Auditing Control Clerk Relationship Specialty Start Date End Date Alan Hutson MD [address] [place] [address] [place] [address] PCP - General 10/16/20
--- NOTE | 2024-12-23 11:57 | XR_ITS ---
FINAL REPORT CLINICAL HISTORY: neck pain COMPARISON: None FINDINGS: Three views of the cervical spine were obtained. No fracture is present. Alignment is normal. No prevertebral soft tissue swelling is seen. Moderate degenerative disc disease is noted at C5 through C7. IMPRESSION: Moderate degenerative changes, greatest in the lower cervical spine. Reviewed, Interpreted and Dictated by Atul Tam MD Transcribed by Binta Lomax Authenticated and [facility]
== END 2024-12-23 23:59 | disposition home or self-care (01) ==
LOC: RAD 11:55
PROVIDERS: PCP Family Medicine; Visit Provider Student in an Organized Health Care Education/Training Program
DX: M47.812 Spondylosis without myelopathy or radiculopathy, cervical region (principal)
CPT/HCPCS: 72040

== ENCOUNTER 2025-02-05 09:55 | Outpatient (CLI) | payer OTHER, SELFPAY ==
[2025-02-05 15:45] LABS: Hematocrit 47.5 % (42.0-52.0); Hemoglobin 15.9 g/dL (14.1-18.0); Immature Granulocytes % 0.2 %; Mean Corpuscular HGB Conc 33.5 g/dL (31.8-35.4); Mean Corpuscular Hemoglobin 30.8 pg (27.0-31.2); Mean Corpuscular Volume 92.1 fl (80-94); Nucleated Red Blood Cells % 0 %; Platelet Count 263 K/mm3 (142-424); Red Blood Count 5.16 M/mm3 (4.60-6.20); Red Cell Distribution Width-SD 45.2 fL; White Blood Count 8.2 K/mm3 (4.8-10.8)
[2025-02-05 16:44] LABS: Alanine Aminotransferase 26 U/L (12-78); Albumin Level 4.3 g/dl (3.5-5.0); Albumin/Globulin Ratio 1.8 (1.1-1.8); Alkaline Phosphatase 94 U/L (38-126); Anion Gap 11.9 mEq/L (5-15); Aspartate Amino Transferase 28 U/L (17-59); Bilirubin,Total 0.6 mg/dl (0.2-1.3); Blood Urea Nitrogen 10 mg/dl (9-20); Calcium 9.1 mg/dl (8.4-10.2); Carbon Dioxide 28 mmol/L (22.0-30.0); Chloride 103 mmol/L (98-107); Creatinine,Serum 0.80 mg/dl (0.66-1.25); Estimated Glomerular Filt Rate 102 ml/min (>60); GFR (African American) 123 ML/MIN (>60); Globulin 2.4 g/dL (1.3-3.2); Glucose 105 mg/dl (74-100); Potassium 4.9 mmoL/L (3.5-5.1); Sodium 138 mmol/L (136-145); Total Protein,Serum 6.7 g/dl (6.3-8.2)
[2025-02-05 18:15] LABS: Hemoglobin A1C 6.2 % (4.0-6.0)
--- OUTSIDE RECORDS SUMMARY | 2025-02-07 10:05 | XMS_ITS | Encounter Summary ---
Author Organization [facility] Address [address] [id number] Care Team Providers Care Selector Packer Name Role Phone Alan Hutson MD Primary Care Provider [phone] Encounter Details Date Type Department Care Team (Latest Contact Info) Description 12/29/2021 Community [facility] [address] [place] [address] Elsa Zhou, PA [address] [place] [address] Degenerative lumbar spinal stenosis (Primary [...] documented as of this encounter Care Teams Selector Packer Relationship Specialty Start Date End Date Alan uHtson MD [address] [facility] [place] [address] PCP - General 10/16/20 documented as of this encounter
--- OUTSIDE RECORDS SUMMARY | 2025-02-07 10:05 | XMS_ITS | Clinical Summary ---
Author Organization [facility] Address [address] [place] [address] Care Team Providers Care Rubber Boots And Shoes Repairer Name Role Phone Alan Hutson MD Primary Care Provider [phone] Allergies Active Allergy Reactions Criticality Noted Date Comments Codeine Nausea 06/19/2013 Medications Ventolin HFA 108 (90 Base) MCG/ACT inhaler Inhale 2 puffs every 6 (six) hours if needed. 1 Active DULoxetine (Cymbalta) [address] capsule Take 1 capsule by mouth 1 (one) time each day. 1 Active ergocalciferol 1.25 MG (48410 UT) capsule Take 1 capsule by mouth [...] 1 (one) time each day. Active multivitamin-ir dh-oikyiuoi-sci ic acid (Centrum) chewable tablet Chew 1 [...] (10/13/2021): Added automatically from request for surgery [id number] Coronary artery disease 02/17/2021 History of non-ST [...] and EKG, [facility], [facility] - Will increase metoprolol succinate to 50 [...] Date Last Done Comments [facility]-Depression Screening 1972 [facility]-/Child/Adol SDOH Screenings 1972 [facility]- SDOH Screenings 1990 [...] 06/26/2014 [facility]-Zoster Vaccines (1 of 2) 2022 [id number]-43 Vaccine ( season) 2024 04/05/2022, 02/10/2021, 2020, [...] this topic Medical Devices Implanted Type Area Blood Bank Manager Device Identifier Shelf Expiration Date Model / Serial / Lot Stent Coronary Resolute Rodriguez Rx 2.25mm X 18mm - [id number] Implanted:Qty: 1 on 02/17/2021 by Jg Ballard MD at [facility]-[id number] 11/10/2023 [id number] X / / [id number] Stent Coronary Resolute [place] Rx 3.00mm X 30mm - [id number] Implanted:Qty: 1 on 02/17/2021 by Jg Ballard MD at [facility]-645255 09/21/2023 [id number] X / / [id number] Stent Coronary Resolute Rodriguez Rx 2.50mm X 22mm - [id number] Implanted:Qty: 1 on 02/17/2021 by Jg Ballard MD at [facility]-[id number] 2022 [id number] X / / [id number] Stent Coronary Resolute [place] Rx 2.50mm X 15mm - [id number] Implanted:Qty: 1 on 02/17/2021 by Jg Ballard MD at [facility]-[id number] 10/06/2023 [id number] X / / [id number] Stent Coronary Resolute [place] Rx 3.50mm X 15mm - [id number] Implanted:Qty: 1 on 02/17/2021 by Jg Ballard MD at [facility]-634057 06/08/2022 [id number] X / / [id number] Vip Vascular Closure Device 6 Fr - [id number] Implanted:Qty: 1 on 02/17/2021 by Jg Ballard MD at [facility] [employer]-[id number] 10/02/2021 [id number] / / [id number] Advance Directives * Full Code (Latest Code Status on File) Date Activated Date Inactivated Comments 02/17/2021 1:35 PM 02/18/2021 6:34 PM Question Answer Comments Patient has decision-making capacity? Yes Care Teams Rubber Boots And Shoes Repairer Relationship Specialty Start Date End Date Alan Hutson MD [address] [place] [address] [place] [address] PCP - General 10/16/20
== END 2025-02-05 23:59 ==
LOC: LAB.DROPOF 02-07 10:02
PROVIDERS: PCP Family Medicine; Visit Provider Family Medicine
DX: T14.8XXA Other injury of unspecified body region, initial encounter (principal); R73.03 Prediabetes
CPT/HCPCS: 80053; 83036; 85025

== ENCOUNTER 2025-03-12 15:30 | Outpatient (CLI) | payer OTHER, SELFPAY ==
[2025-03-12 20:30] LABS: Coronavirus 19, PCR Not Detected (NotDetected); Influenza A, PCR Not Detected (NotDetected); Influenza B, PCR Not Detected (NotDetected)
--- OUTSIDE RECORDS SUMMARY | 2025-03-14 01:32 | XMS_ITS | Clinical Summary ---
Author Organization [facility] Address [address] [place] [address] Care Team Providers Care Junior Systems Engineer Name Role Phone Alan Hutson MD Primary Care Provider Allergies Active Allergy Reactions Criticality Noted Date Comments Codeine Nausea 06/19/2013 Medications Ventolin HFA 108 (90 Base) MCG/ACT inhaler Inhale 2 puffs every 6 (six) hours if needed. 1 Active DULoxetine (Cymbalta) [address] capsule Take 1 capsule by mouth 1 (one) time each day. 1 Active ergocalciferol 1.25 MG (90418 UT) capsule Take 1 capsule by mouth [...] 1 (one) time each day. Active multivitamin-ir sv-qwrhlpmw-diu ic acid (Centrum) chewable tablet Chew 1 [...] Active Problems Problem Noted Date Diagnosed Date Coronary artery disease 02/17/2021 History of non-ST elevation myocardial infarctio n (NSTEMI) 12/16/2020 History of coronary artery bypass graft x 1 12/03 Atherosclerosis of coronary artery 07/19/2013 Depression 06/19/2013 Hyperlipidemia 06/19/2013 Hypertension 06/19/2013 Resolved Problems Problem Noted Date Diagnosed Date Resolved Date Chest pain 10/13/2021 02/23/2025 Overview (10/13/2021): Added automatically from request for surgery [id number] Stable angina 12/16/2020 02/18/2021 Chest pain 12/16/2020 02/18/2021 Assessment & Plan (12/16/2020 7:34 PM EDT): - Patient experiencing some persistent angina since his NSTEMI that has kept him from doing some of his normal activities - Reviewed patient's records including EKG done in clinic and EKG, Echo, and LHC performed at [facility]. - Will increase metoprolol succinate to 50 [...] patient in 4-6 weeks Hyperglycemia 06/19/2013 02/18/2021 Overweight 06/19/2013 02/23/2025 Recurrent tonsillitis 06/19/20132020 Immunizations Immunization Administration Dates [...] 06/26/2014 [facility]-Zoster Vaccines (1 of 2) 2022 OMD-[id number]-22 Vaccine (5 - season) 2025 04/05/2022, 02/10/2021, 2020, Additional history exists [facility]-Influenza [...] this topic Medical Devices Implanted Type Area Biomass Production Manager Device Identifier Shelf Expiration Date Model / Serial / Lot Stent Coronary Resolute [place] Rx 2.25mm X 18mm - [id number] Implanted:Qty: 1 on 02/17/2021 by Jg Ballard MD at [facility]-[id number] 11/10/2023 [id number] X / / [id number] Stent Coronary Resolute Rodriguez Rx 3.00mm X 30mm - [id number] Implanted:Qty: 1 on 02/17/2021 by Jg Ballard MD at [facility]-[id number] 09/21/2023 [id number] X / / [id number] Stent Coronary Resolute Rodriguez Rx 2.50mm X 22mm - [id number] Implanted:Qty: 1 on 02/17/2021 by Jg Ballard MD at [facility]586241 2022 [id number] X / / [id number] Stent Coronary Resolute Rodriguez Rx 2.50mm X 15mm - [id number] Implanted:Qty: 1 on 02/17/2021 by Jg Ballard MD at [facility]629212 10/06/2023 [id number] X / / [id number] Stent Coronary Resolute [place] Rx 3.50mm X 15mm - [id number] Implanted:Qty: 1 on 02/17/2021 by Jg Ballard MD at [id number] 06/08/2022 [id number] X / / [id number] Vip Vascular Closure Device 6 Fr - [id number] Implanted:Qty: 1 on 02/17/2021 by Jg Ballard MD at [facility] [employer]-[id number] 10/02/2021 [id number] / / [id number] Advance Directives * Full Code (Latest Code Status on File) Date Activated Date Inactivated Comments 02/17/2021 1:35 PM 02/18/2021 6:34 PM Question Answer Comments Patient has decision-making capacity? Yes Care Teams Junior Systems Engineer Relationship Specialty Start Date End Date Alan Hutson MD [address] [place] [address] [place] [address] PCP - General 10/16/20
--- OUTSIDE RECORDS SUMMARY | 2025-03-14 01:32 | XMS_ITS | Encounter Summary ---
Author Organization [facility] Address [address] [id number] Care Team Providers Care Coat Finisher Name Role Phone Alan Hutson MD Primary Care Provider [phone] Encounter Details Date Type Department Care Team (Latest Contact Info) Description 12/29/2021 Community [facility] [address] [place] [address] Elsa Zhou, PA [address] [place] [address] Degenerative lumbar spinal stenosis (Primary [...] documented as of this encounter Care Teams Coat Finisher Relationship Specialty Start Date End Date Alan Hutson MD [address] [facility] [place] [address] PCP - General 10/16/20 documented as of this encounter
== END 2025-03-12 23:59 ==
LOC: LAB.DROPOF 03-14 01:30
PROVIDERS: PCP Student in an Organized Health Care Education/Training Program; Visit Provider Student in an Organized Health Care Education/Training Program
DX: R11.2 Nausea with vomiting, unspecified (principal)
CPT/HCPCS: 87636